=== PATIENT | female | born 1970 | race Caucasian/White ===

== ENCOUNTER 2018-03-18 08:00 | Outpatient (REF) | payer BC, SELFPAY ==
[2018-03-18 14:12] LABS: Creatinine,Urine 70.43 mg/dL
[2018-03-18 14:15] LABS: Creatinine,24hr Ur 1.48 g/24hr (0.60-1.80); Total Volume 2150 ml
[2018-03-21 22:18] LABS: Metanephrines, U 73 mcg/24 h; Normetanephrine, U 538 mcg/24 h; Total Metanephrines, U 611 mcg/24 h; Urine Volume 2600 mL
== END 2018-03-18 08:20 ==
LOC: LBN 08:00
PROVIDERS: PCP Family Medicine; Visit Provider Internal Medicine Endocrinology, Diabetes & Metabolism
DX: E05.90 Thyrotoxicosis, unspecified without thyrotoxic crisis or storm (principal)
CPT/HCPCS: 81050; 82570; 83835

== ENCOUNTER 2019-07-05 08:10 | Outpatient (CLI) | payer BC, SELFPAY ==
--- NOTE | 2019-07-05 15:35 | DI.RAD_ITS ---
EXAM: XR FOOT RT COMPLETE CLINICAL HISTORY: RT FOOT PAIN ,79.671 TECHNIQUE: Three views of the foot with 3 additional views of the great toe were obtained. COMPARISON: XR TOE RT GREAT from 07/05/2019 FINDINGS: No bony or soft tissue abnormality seen.
== END 2019-07-05 08:30 ==
PROVIDERS: PCP Family Medicine; Visit Provider Family Medicine
DX: M79.671 Pain in right foot (principal); M79.674 Pain in right toe(s)
CPT/HCPCS: 73630; 73660

== ENCOUNTER 2019-11-21 17:06 | Outpatient (REF) | payer BC, SELFPAY | END 2019-11-21 17:26 | LOC: NCHCN 17:06 | PROVIDERS: PCP Family Medicine; Visit Provider Nurse Practitioner Family | DX: R30.0 Dysuria (principal) | CPT/HCPCS: 87077; 87086; 87186 ==

== ENCOUNTER 2020-01-22 01:47 | Outpatient (CLI) | payer BC, SELFPAY ==
--- NOTE | 2020-01-22 | DI.US_ITS ---
EXAM: US PELVIS TRANSVAGINAL CLINICAL HISTORY: CHRONIC PELVIC PAIN,R10.2 TECHNIQUE: Transabdominal and transvaginal imaging was performed using standard protocol. COMPARISON: No exams were available for comparison FINDINGS: KIDNEYS: Kidneys are symmetric in size. No evidence of renal calculi. No evidence of hydronephrosis. No renal mass or cyst identified. In the right inguinal region, in the area of the patient's pain, there is a fatty containing hernia. The fascial defect measures 1.3 cm. UTERUS: Anteverted. 9.5 x 5.2 x 5.4 cm. Endometrium: 9 millimeters. Homogeneous. Myometrium: Heterogeneous. 2.3 centimeter fundal fibroid. 1.4 centimeter anterior myometrial fibroi d. Cervix: Small nabothian cysts. OVARIES: Right: Cyst or mass: 1.8 centimeter dominant follicle Left: Cyst or mass: None. DOPPLER: Color: Symmetric and uniform flow to both ovaries. No hyperemia. Duplex: Normal ovarian arterial waveforms visualized. CUL-DE-SAC: Free fluid: None. IMPRESSION: Fatty containing right inguinal hernia. Heterogeneous myometrium with small fibroids. DATA REPOSITORY:
== END 2020-01-22 02:07 ==
PROVIDERS: PCP Family Medicine; Visit Provider Obstetrics & Gynecology
DX: K40.90 Unilateral inguinal hernia, without obstruction or gangrene, not specified as recurrent (principal); D25.9 Leiomyoma of uterus, unspecified; N85.9 Noninflammatory disorder of uterus, unspecified
CPT/HCPCS: 76830; 76856

== ENCOUNTER 2021-04-07 10:05 | Outpatient (REF) | payer BC, SELFPAY ==
[2021-04-07 14:27] LABS: ALT 23 U/L (14-59); AST 11 U/L (15-37); Albumin 3.9 g/dL (3.4-5.0); Alkaline Phosphatase 38 U/L (46-116); Anion Gap 9.5 mmol/L (3-11); BUN 13 mg/dL (7-18); Bilirubin, Total 0.3 mg/dL (0.2-1.0); CO2 25.5 mmol/L (21.0-32.0); Calcium 8.7 mg/dL (8.5-10.1); Calculated LDL 113 mg/dL (<100); Chloride 104 mmol/L (98-107); Cholesterol 178 mg/dL (<200); Estimated GFR 58.69 (mL/min/1.73m2); Glucose 83 mg/dL (74-106); HDL Cholesterol 40 mg/dL (40-60); Potassium 4.4 mmol/L (3.5-5.1); Sodium 139 mmol/L (136-145); Total Protein 7.4 g/dL (6.4-8.2); Triglyceride 125 mg/dL (<150)
== END 2021-04-07 10:06 | disposition home or self-care (01) ==
LOC: NCHCN 10:05
PROVIDERS: PCP Family Medicine; Visit Provider Family Medicine
DX: Z00.00 Encounter for general adult medical examination without abnormal findings (principal)
CPT/HCPCS: 80053; 80061

== ENCOUNTER 2022-05-18 01:16 | Outpatient (CLI) | payer BC, SELFPAY ==
--- NOTE | 2022-05-18 15:00 | DI.RAD_ITS ---
Exam(s) XR SHOULDER LT COMPLETE 2+V EXAM: XR SHOULDER LT COMPLETE 2+V CLINICAL HISTORY: LT SHOULDER PAIN, M25.512. TECHNIQUE: 2D digital imaging was performed of the left shoulder. Five images were obtained. AP, G rashey, Y-view and axillary views were obtained. COMPARISON: No exams were available for comparison FINDINGS: BONES: No acute fracture is present. No bony destructive lesion is seen. JOINTS: No dislocation present. SOFT TISSUE: Normal. IMPRESSION: Unremarkable radiographs of the left shoulder. DATA REPOSITORY: RADIATION DOSE DELIVERED:
== END 2022-05-18 01:36 ==
LOC: DI 01:16
PROVIDERS: PCP Family Medicine; Visit Provider Internal Medicine
DX: M25.512 Pain in left shoulder (principal)
CPT/HCPCS: 73030

== ENCOUNTER 2022-07-01 16:53 | Outpatient (REF) | payer BC, SELFPAY ==
[2022-07-01 20:55] LABS: HCT 37.5 % (36.0-46.0); HGB 11.3 g/dL (11.2-15.7); MCH 24.9 pg (27.0-33.0); MCHC 30.1 % (32.0-36.0); MCV 83 fL (80-95); MPV 11.6 fL (8.0-11.0); Platelet Count 339 10^3/uL (130-400); RBC 4.53 10^6/uL (3.93-5.22); RDW 16.7 % (11.7-14.6); RDW-SD 50.2 fL; WBC 8.59 10^3/uL (4.4-10.8)
[2022-07-01 21:19] LABS: ALT 17 U/L (14-59); AST 16 U/L (15-37); Albumin 3.9 g/dL (3.4-5.0); Alkaline Phosphatase 41 U/L (46-116); BUN 16 mg/dL (7-18); Bilirubin, Total 0.2 mg/dL (0.2-1.0); Calcium 8.8 mg/dL (8.5-10.1); Chloride 105 mmol/L (98-107); Estimated GFR 68.21 (mL/min/1.73m2); Glucose 95 mg/dL (74-106); Potassium 5.1 mmol/L (3.5-5.1); Sodium 139 mmol/L (136-145); TSH 0.58 uIU/mL (0.36-3.74); Total Protein 7.3 g/dL (6.4-8.2)
[2022-07-01 21:32] LABS: T4 9.3 ug/dL (4.7-13.3)
[2022-07-03 17:50] LABS: T3, Total 155 ng/dL (97-169)
== END 2022-07-01 16:54 | disposition home or self-care (01) ==
LOC: NCHCN 16:53
PROVIDERS: PCP Family Medicine; Visit Provider Family Medicine
DX: E05.90 Thyrotoxicosis, unspecified without thyrotoxic crisis or storm (principal); F41.8 Other specified anxiety disorders; K90.0 Celiac disease
CPT/HCPCS: 80053; 85027; 84436; 84443; 84480

== ENCOUNTER 2022-07-11 01:35 | Outpatient (CLI) | payer BC, SELFPAY ==
--- NOTE | 2022-07-11 08:00 | DI.MRI_ITS ---
Exam(s) MR UPPER JOINT LT WO EXAM: MR UPPER JOINT LT WO CLINICAL HISTORY: L SHOULDER PAIN,BURSITIS, TENDINITIS,ROTATOR CUFF TEAR,M75.52,M75.22,. TECHNIQUE: Multiplanar multisequence MRI was performed. COMPARISON: CR XR SHOULDER LT COMPLETE 2+V from 05/18/2022 FINDINGS: BONES: There is no fracture or contusion pattern. JOINTS: The acromioclavicular joint is normal. The glenohumeral joint is normal. TENDONS: Supraspinatus: There is tendinosis of the supraspinatus tendon. Infraspinatus: There is infraspinatus tendinosis. Subscapularis: Unremarkable. Teres Minor: Unremarkable. Biceps and [place]: Unremarkable. MUSCLES: Unremarkable. GLENOID LABRUM: Unremarkable on this noncontrast examination. SOFT TISSUES: Unremarkable. LIGAMENTS: Unremarkable. OTHER: There is fluid seen in the subacromial subdeltoid bursitis. IMPRESSION: 1. Subacromial subdeltoid bursitis. 2. Tendinosis in the supraspinatus and infraspinatus tendons. No evidence of a rotator cuff tear. DATA REPOSITORY:
== END 2022-07-11 01:55 ==
LOC: DI 01:35
PROVIDERS: PCP Family Medicine; Visit Provider Student in an Organized Health Care Education/Training Program
DX: M75.52 Bursitis of left shoulder (principal); M75.22 Bicipital tendinitis, left shoulder; M75.102 Unspecified rotator cuff tear or rupture of left shoulder, not specified as traumatic
CPT/HCPCS: 73221

== ENCOUNTER 2022-09-21 13:19 | Outpatient (REF) | payer BC, SELFPAY ==
[2022-09-21 17:02] LABS: TSH 0.44 uIU/mL (0.36-3.74)
[2022-09-21 18:03] LABS: Vitamin D 25 Total 69.2 ng/mL (30-100)
== END 2022-09-21 13:20 | disposition home or self-care (01) ==
LOC: NCHCN 13:19
PROVIDERS: PCP Family Medicine; Visit Provider Family Medicine
DX: E05.90 Thyrotoxicosis, unspecified without thyrotoxic crisis or storm (principal); K90.0 Celiac disease
CPT/HCPCS: 82306; 84443

== ENCOUNTER 2023-01-17 03:30 | Outpatient (CLI) | payer BC, SELFPAY ==
[2023-01-17 08:23] LABS: Abs Immature Grans 0.01 10^3/uL (0.0-0.06); Absolute Eosinophil Count 0.28 10^3/uL (0.0-0.7); Absolute Lymphocyte Count 1.53 10^3/uL (1.2-3.4); Absolute Monocyte Count 0.46 10^3/uL (0.1-0.8); Absolute Neutrophil Count 2.69 10^3/uL (1.2-6.7); Eosinophils % 5.5; HCT 37.9 % (36.0-46.0); HGB 11.5 g/dL (11.2-15.7); Immature Grans % 0.2; Lymphocytes % 30.2; MCHC 30.3 % (32.0-36.0); MCV 82 fL (80-95); MPV 10.1 fL (8.0-11.0); Monocytes % 9.1; Platelet Count 374 10^3/uL (130-400); RDW 15.8 % (11.7-14.6); RDW-SD 47.7 fL; WBC 5.07 10^3/uL (4.4-10.8)
[2023-01-17 08:25] LABS: Bilirubin Negative (Negative); Blood Negative (Negative); Clarity Clear (Clear); Glucose Negative (Negative); Ketones Negative (Negative); Leukocyte Esterase Negative (Negative); Nitrite Negative (Negative); Specific Gravity 1.025 (1.005-1.025); Urobilinogen 0.2 mg/dL (Up to 0.2)
[2023-01-17 09:53] LABS: Hemoglobin A1C 5.7 % (<5.7)
[2023-01-17 10:00] LABS: Iron 26 ug/dL (50-170)
[2023-01-17 10:08] LABS: ALT 23 U/L (14-59); AST 14 U/L (15-37); Albumin 3.7 g/dL (3.4-5.0); Alkaline Phosphatase 49 U/L (46-116); Anion Gap 5.6 mmol/L (3-11); BUN 16 mg/dL (7-18); Bilirubin, Total 0.3 mg/dL (0.2-1.0); CO2 29.4 mmol/L (21.0-32.0); CREATININE 1.1 mg/dL (0.55-1.02); Calculated LDL 163 mg/dL (<100); Chloride 105 mmol/L (98-107); Cholesterol 232 mg/dL (<200); Estimated GFR 60.46 (mL/min/1.73m2); Ferritin 2 ng/mL (8-252); Glucose 87 mg/dL (74-106); HDL Cholesterol 53 mg/dL (40-60); Sodium 140 mmol/L (136-145); TSH 0.72 uIU/mL (0.36-3.74); Total Protein 7.3 g/dL (6.4-8.2); Triglyceride 84 mg/dL (<150)
[2023-01-17 10:41] LABS: FREE T4 0.87 ng/dL (0.76-1.46)
[2023-01-17 18:15] LABS: T3,Free 3.9 pg/mL (2.8-5.3)
[2023-01-17 20:19] LABS: Thyroglobulin Antibody <15 U/mL (<=60); Thyroperoxidase Antibody <28 U/mL (<=60)
[2023-01-19 12:04] LABS: Copper, Serum 115 mcg/dL (77-206)
== END 2023-01-17 03:31 | disposition home or self-care (01) ==
LOC: LBO 03:30
PROVIDERS: PCP Family Medicine; Visit Provider Naturopath
DX: F51.01 Primary insomnia (principal); N95.8 Other specified menopausal and perimenopausal disorders; F41.1 Generalized anxiety disorder; K59.01 Slow transit constipation; R35.0 Frequency of micturition; L65.9 Nonscarring hair loss, unspecified; R42 Dizziness and giddiness; D50.9 Iron deficiency anemia, unspecified; E06.3 Autoimmune thyroiditis; E61.0 Copper deficiency; Z13.220 Encounter for screening for lipoid disorders; Z13.1 Encounter for screening for diabetes mellitus
CPT/HCPCS: 36415; 80053; 80061; 82525; 86376; 81003; 82728; 83036; 83540; 84439; 84443; 84481; 85025

== ENCOUNTER 2023-04-12 16:21 | Outpatient (REF) | payer BC, SELFPAY ==
[2023-04-12 21:07] LABS: Abs Immature Grans 0.03 10^3/uL (0.0-0.06); Absolute Basophil Count 0.15 10^3/uL (0.0-0.2); Absolute Lymphocyte Count 2.01 10^3/uL (1.2-3.4); Absolute Monocyte Count 0.77 10^3/uL (0.1-0.8); Absolute Neutrophil Count 5.41 10^3/uL (1.2-6.7); Basophils % 1.7; Eosinophils % 4.6; HCT 38.4 % (36.0-46.0); HGB 11.9 g/dL (11.2-15.7); Immature Grans % 0.3; Lymphocytes % 22.9; MCH 25.7 pg (27.0-33.0); MCV 83 fL (80-95); MPV 11.3 fL (8.0-11.0); Monocytes % 8.8; Neutrophils % 61.7; Platelet Count 359 10^3/uL (130-400); RBC 4.63 10^6/uL (3.93-5.22); RDW 16.9 % (11.7-14.6); RDW-SD 50.8 fL; WBC 8.77 10^3/uL (4.4-10.8)
[2023-04-12 21:28] LABS: ALT 28 U/L (14-59); AST 16 U/L (15-37); Albumin 4.2 g/dL (3.4-5.0); Alkaline Phosphatase 62 U/L (46-116); Anion Gap 8.9 mmol/L (3-11); BUN 21 mg/dL (7-18); Bilirubin, Total 0.2 mg/dL (0.2-1.0); CO2 27.1 mmol/L (21.0-32.0); Calcium 9.8 mg/dL (8.5-10.1); Chloride 102 mmol/L (98-107); Estimated GFR 67.78 (mL/min/1.73m2); Ferritin 8 ng/mL (8-252); Glucose 110 mg/dL (74-106); Potassium 4.3 mmol/L (3.5-5.1); Sodium 138 mmol/L (136-145); Total Protein 7.7 g/dL (6.4-8.2)
[2023-04-12 21:43] LABS: C-Reactive Protein 0.17 mg/dL (0.0-0.3)
[2023-04-12 22:06] LABS: Iron 60 ug/dL (50-170)
[2023-04-14 17:58] LABS: Apolipoprotein A1 125 mg/dL (>=140)
[2023-04-15 09:18] LABS: Apolipoprotein B, S 110 mg/dL
== END 2023-04-12 16:22 | disposition home or self-care (01) ==
LOC: NCHCN 16:21
PROVIDERS: PCP Family Medicine; Visit Provider Family Medicine
DX: R55 Syncope and collapse (principal)
CPT/HCPCS: 80053; 82172; 82728; 83540; 85025; 86140

== ENCOUNTER → 2023-06-07 02:38 | Outpatient (CLI) | payer BC, SELFPAY ==
--- NOTE | 2023-06-07 | DI.RAD_ITS ---
Exam(s) XR KNEE RT 3V AP,LAT,LENARD EXAM: XR KNEE RT 3V AP,LAT,LENARD CLINICAL HISTORY: PAIN RT KNEE M25.561. TECHNIQUE: 2D digital imaging was performed. Three views. COMPARISON: No exams were available for comparison FINDINGS: BONES: No acute fracture is present. No bony destructive lesion is seen. Enthesophyte upper pole pa tella JOINTS: The knee is normally aligned. No joint effusion is seen. Joint spaces are maintained. SOFT TISSUE: Normal. IMPRESSION: Unremarkable radiographs of the right knee. DATA REPOSITORY: RADIATION DOSE DELIVERED:
--- OUTSIDE RECORDS SUMMARY | 2023-06-07 02:39 | XMS_ITS | Continuity of Care Document ---
Author Name Unknown Organization [facility] Address [address] [place] [address] Care Team Providers Care Surveillance Investigator Name Role Phone Damon Reyes Primary Care Physician Encounter [facility] Date(s): 04/24/23 - 04/24/[address] [address] Discharge Disposition: Home or Self Care Attending Physician: Damon Reyes MD Admitting Physician: Damon Reyes MD Referring Physician: Damon Reyes MD Allergies, Adverse Reactions, Alerts Substance Reaction Severity Status gabapentin Unknown Active Assessment and Plan Diagnostic Tests Pending * PAP Test [facility] 04/24/23 Medications hydroCHLOROthiazide 12.5 mg oral tablet 0 Refill(s) Start Date: 04/24/23 Status: Ordered HYDROcodone-acetaminophen 10 mg-325 mg oral tablet 1 tab, Oral, TID, PRN as needed for pain, 0 Refill(s) Start Date: 04/24/23 Status: Ordered QUEtiapine 25 mg oral tablet 0 Refill(s) Start Date: 04/24/23 Status: Ordered traZODone 100 mg oral tablet See Instructions, 0 Refill(s) Start Date: 04/24/23 Status: Ordered venlafaxine 37.5 mg oral capsule, extended release 0 Refill(s) Start Date: 04/24/23 Status: Ordered Problem List Condition Confirmation Course Effective Dates Status Health St [facility] Informant Menopause present Confirmed Active Night sweats Confirmed Active Procedures Procedure Date Related Diagnosis Body Site Status Due 02/2024 1 03/13/19 Completed TMJ - Temporomandibular join t operation 05/2004 Completed oral surgery procedure 06/25/03 Co mpleted Tubal ligation Completed 1Pap Due 02/2024 03/02/2016 ASCUS/Neg 03/14/2019 Neg/Neg Social History Social History Type Response Tobacco Never tobacco user T obacco Use:. Sex Female Patient Care team information Care Team Personnel Name: Damon Reyes MD Position: Physician - Women's Health Member Role: Primary Care Physician Address: Address: [address]
== END ==
PROVIDERS: PCP Family Medicine; Visit Provider Family Medicine
DX: M25.561 Pain in right knee (principal)
CPT/HCPCS: 73562

== ENCOUNTER → 2023-09-04 01:13 | Outpatient (CLI) | payer BC, SELFPAY ==
--- NOTE | 2023-09-04 07:45 | DI.MAMMO_ITS ---
Exam(s) MAMMO SCREENING EXAM: MAMMO SCREENING CLINICAL HISTORY: SCREENING MAMMO FOR BREAST CANCER Z12.31 TECHNIQUE: Bilateral full field digital CC and MLO mammographic images were obtained with 3D tomosyn thesis and utilizing computer aided detection (CAD). COMPARISON: Available for comparison. FINDINGS: Masses/Architectural Distortion: There is a biopsy clip again seen in the lower inner quadrant of the left breast. No suspicious nodules are seen. No areas of architectural distortion are present. Microcalcifications: No suspicious pleomorphic-type are seen. Skin Thickening/Nipple Retraction: None. IMPRESSION: 1. No significant interval change with no specific features of malignancy noted. 2. Unless there is more urgent need, screening mammography is recommended, as per [place] [employer] guidelines. BI-RADS Category 1 - Negative Breast Density - Category C - Heterogeneously dense Breast density category C or D implies that the patient has dense breast tissue. Dense breast tissue is very common and is not abnormal but dense breast tissue can make it harder to find cancer on a ma mmogram. Also, dense breast tissue may increase their breast cancer risk. This information about the result of the mammogram report was provided to the patient to raise their awareness. Use this report when you speak with the patient about their risks for breast cancer, which includes their family hist ory. At that time, you may recommend for more screening tests (Ultrasound or MRI) as they might be us eful based on their risk. A negative radiographic report should not delay biopsy if a dominant or clinically suspicious mass is present. Up to ten percent of cancers are not identified on mammography. A negative report may reinforce clinical impression. Adenosis and dense breasts may obscure an underlying neoplasm. False positive reports average 6 to 10%. Patient will receive a letter notifying them of these results.
== END ==
PROVIDERS: PCP Family Medicine; Visit Provider Obstetrics & Gynecology
DX: Z12.31 Encounter for screening mammogram for malignant neoplasm of breast (principal)
CPT/HCPCS: 77063; 77067

== ENCOUNTER 2023-10-19 06:04 | Outpatient (CLI) | payer BC, SELFPAY ==
[2023-10-19 07:56] LABS: Abs Immature Grans 0.02 10^3/uL (0.0-0.06); Absolute Basophil Count 0.11 10^3/uL (0.0-0.2); Absolute Eosinophil Count 0.23 10^3/uL (0.0-0.7); Absolute Lymphocyte Count 1.61 10^3/uL (1.2-3.4); Absolute Monocyte Count 0.62 10^3/uL (0.1-0.8); Absolute Neutrophil Count 5.02 10^3/uL (1.2-6.7); Basophils % 1.4; HCT 40.5 % (36.0-46.0); Immature Grans % 0.3; Lymphocytes % 21.2; MCH 28.9 pg (27.0-33.0); MCHC 32.1 % (32.0-36.0); MCV 90 fL (80-95); MPV 10.5 fL (8.0-11.0); Monocytes % 8.1; Platelet Count 298 10^3/uL (130-400); RDW 13.3 % (11.7-14.6); RDW-SD 43.5 fL; WBC 7.61 10^3/uL (4.4-10.8)
[2023-10-19 08:39] LABS: ALT 25 U/L (14-59); AST 15 U/L (15-37); Albumin 3.9 g/dL (3.4-5.0); Alkaline Phosphatase 60 U/L (46-116); Anion Gap 7.9 mmol/L (3-11); BUN 17 mg/dL (7-18); Bilirubin, Total 0.3 mg/dL (0.2-1.0); CO2 28.1 mmol/L (21.0-32.0); Calcium 8.8 mg/dL (8.5-10.1); Chloride 106 mmol/L (98-107); Estimated GFR 67.36 (mL/min/1.73m2); Ferritin 6 ng/mL (8-252); Glucose 99 mg/dL (74-106); Potassium 4.3 mmol/L (3.5-5.1); Sodium 142 mmol/L (136-145); Total Protein 7.3 g/dL (6.4-8.2)
[2023-10-19 19:58] LABS: Iron 57 ug/dL (50-170)
[2023-10-19 20:02] LABS: Calculated LDL 187 mg/dL (<100); Cholesterol 266 mg/dL (<200); HDL Cholesterol 60 mg/dL (40-60); Triglyceride 97 mg/dL (<150)
[2023-10-19 20:21] LABS: Vitamin D 25 Total 51.1 ng/mL (30-100)
== END 2023-10-19 06:05 | disposition home or self-care (01) ==
LOC: LBO 06:04
PROVIDERS: PCP Family Medicine; Visit Provider Naturopath
DX: N95.8 Other specified menopausal and perimenopausal disorders (principal); N92.4 Excessive bleeding in the premenopausal period; I10 Essential (primary) hypertension; D50.9 Iron deficiency anemia, unspecified; F51.01 Primary insomnia; K59.01 Slow transit constipation; F41.1 Generalized anxiety disorder; R35.0 Frequency of micturition; L65.9 Nonscarring hair loss, unspecified; R42 Dizziness and giddiness; R53.83 Other fatigue; E55.9 Vitamin D deficiency, unspecified; Z13.220 Encounter for screening for lipoid disorders
CPT/HCPCS: 36415; 80053; 80061; 82306; 82728; 83540; 85025

== ENCOUNTER 2023-12-11 05:56 | Outpatient (CLI) | payer BC, SELFPAY ==
[2023-12-11 08:44] LABS: Abs Immature Grans 0.01 10^3/uL (0.0-0.06); Absolute Eosinophil Count 0.29 10^3/uL (0.0-0.7); Absolute Lymphocyte Count 1.41 10^3/uL (1.2-3.4); Absolute Neutrophil Count 1.94 10^3/uL (1.2-6.7); Basophils % 2.4 %; Eosinophils % 6.8 %; HCT 40.9 % (36.0-46.0); HGB 12.7 g/dL (11.2-15.7); Immature Grans % 0.2 %; Lymphocytes % 33.2 %; MCH 27.8 pg (27.0-33.0); MCHC 31.1 % (32.0-36.0); MCV 90 fL (80-95); MPV 10.5 fL (8.0-11.0); Monocytes % 11.8 %; Neutrophils % 45.6 %; Platelet Count 278 10^3/uL (130-400); RBC 4.57 10^6/uL (3.93-5.22); RDW 14.6 % (11.7-14.6); RDW-SD 48.2 fL; WBC 4.25 10^3/uL (4.4-10.8)
[2023-12-11 09:08] LABS: Iron 53 ug/dL (50-170)
[2023-12-11 09:30] LABS: ALT 26 U/L (14-59); AST 15 U/L (15-37); Albumin 4.1 g/dL (3.4-5.0); Alkaline Phosphatase 57 U/L (46-116); Anion Gap 8.6 mmol/L (3-11); BUN 12 mg/dL (7-18); Bilirubin, Total 0.4 mg/dL (0.2-1.0); CO2 29.4 mmol/L (21.0-32.0); Calcium 9.1 mg/dL (8.5-10.1); Calculated LDL 162 mg/dL (<100); Chloride 104 mmol/L (98-107); Cholesterol 238 mg/dL (<200); Estimated GFR 67.36 (mL/min/1.73m2); FREE T4 0.83 ng/dL (0.76-1.46); Ferritin 5 ng/mL (8-252); Glucose 98 mg/dL (74-106); HDL Cholesterol 62 mg/dL (40-60); Potassium 3.9 mmol/L (3.5-5.1); Sodium 142 mmol/L (136-145); TSH 1.83 uIU/Ml (0.36-3.74); Total Protein 7.7 g/dL (6.4-8.2); Triglyceride 72 mg/dL (<150); Vitamin D 25 Total 55.3 ng/mL (30-100)
[2023-12-11 22:43] LABS: T3,Free 3.8 pg/mL (2.8-5.3)
[2023-12-12 08:45] LABS: Thyroglobulin Antibody <15 U/mL (<=60); Thyroperoxidase Antibody 29 U/mL (<=60)
== END 2023-12-11 05:57 | disposition home or self-care (01) ==
LOC: LBO 05:56
PROVIDERS: PCP Family Medicine; Visit Provider Naturopath
DX: N95.8 Other specified menopausal and perimenopausal disorders (principal); N92.4 Excessive bleeding in the premenopausal period; I10 Essential (primary) hypertension; D50.9 Iron deficiency anemia, unspecified; F51.01 Primary insomnia; R35.0 Frequency of micturition; Z13.220 Encounter for screening for lipoid disorders; E55.9 Vitamin D deficiency, unspecified
CPT/HCPCS: 36415; 80053; 80061; 82306; 86376; 82728; 83540; 84439; 84443; 84481; 85025

== ENCOUNTER 2024-04-29 11:54 | Outpatient (REF) | payer BC, SELFPAY ==
--- OUTSIDE RECORDS SUMMARY | 2024-04-29 11:56 | XMS_ITS | Encounter Summary ---
Author Organization [facility] [address] Care Team Providers Care Gang Worker Name Role Phone Aisha Kessler MD Primary Care Provider Reason for Visit * - Closed Specialty Diagnoses / Procedures Referred By Lizbeth t Referred To Contact Procedures Film Library- Storage Only MR Spine Aisha Kessler MD [address] [place] [address] Referral ID Status Reason Start Date Expiration Date Visits Re quested Visits Authorized [id number] Closed 09/18/2020 09/18/2021 1 1 Encounter Details Date Type Department Care Team (Late st Contact Info) Description 09/11/2020 Ancillary Procedure Radiology Library at [facility] [place] [address] Aisha Kessler MD [address] [place], [place] [address] Social History Tobacco Use Types Packs/Day Years Used Date Smoking Tobacco: Never Smokeless Tobacco: Never Alcohol Use Standard Drinks/Week Comments No 0 (1 standard drink = 0.6 oz pur e alcohol) Sex and Gender Information Value Date Recorded Sex Assigned at Not on file Gender Identity Not on file Sexual Orientation Not on file documented as of this encounter Plan of Treatment Not on file documented as of this encounter Procedures Procedure Name Priority Date/Time Associated Diagnosis Comments FILM LIBRARY STORAGE ONLY MR SPINE Routine 09/11/2020 12:00 AM EDT documented in this encounter Results * Film Library- Storage Only MR Spine (09/11/2020 12:00 AM EDT) Narrative JES - 09/18/2020 2:14 PM EDT This exam is auto-finalizing. It's purpose is for storage only. Aisha Kessler MD IM FILM LIBRARY ORD ERABLES Performing Organization Address City/State/[facility] Co de Phone Number [place], [place] documented in this encounter Visit Diagnoses Not on filedocumented in this encounter Care Teams Gang Worker Relationship Specialty Start Date End Date Aisha Kessler MD [address] [place] [address] PCP - General Family Medicine 10/20/17 documented as of this encounter
--- OUTSIDE RECORDS SUMMARY | 2024-04-29 11:56 | XMS_ITS | Encounter Summary ---
Author Organization [facility] Address [address] [place] [address] Care Team Providers Care Sprue Knocker Name Role Phone Deep Zuleta MD Primary Care Provider [phone] Encounter Details Date Type Department Care Team (Latest Contact Info) Description 03/02/2016 14:29 EDT - 03/02/2016 23:59 EDT Hospital Encounter [address] [address] Unknown, Provider, Discharge Disposition: Home or Self Care Social History Tobacco Use Types Packs/Day Years Used Date Smoking Tobacco: Never Assessed Sex and Gender Information Value Date Recorded Sex Assigned at Not on file Gender Identity Not on file Sexual Orientation Not on file documented as of this encounter Discharge Diagnoses Diagnosis Z12.4 Encounter for screening for malignant neoplasm of cervix-Z12.4[ICD-10-CM] Z87.410 Personal history of cervical dysplasia-Z87.410[ICD-10-CM] Z11.51 Encounter for screening for human papillomavirus (HPV)-Z11.51[ICD-10-CM] documented in this encounter Discharge Disposition Disposition Code Departure Means Destination Home or Self Long Term documented in this encounter Plan of Treatment Not on file documented as of this encounter Visit Diagnoses Not on filedocumented in this encounter Care Teams Sprue Knocker Relationship Specialty Start Date End Date Deep Zuleta MD [address] [place] [address] PCP - General 10/11/10 documented as of this encounter
--- OUTSIDE RECORDS SUMMARY | 2024-04-29 11:56 | XMS_ITS | Encounter Summary ---
[place] [address] Care Team Providers Care Batch Roller Operator Name Role Phone Aisha Kessler MD Primary Care Provider [phone] Reason for Referral * Diagnostic Test (Routine) - Closed Specialty Diagnoses / Procedures Referred By Contac t Referred To Contact Radiology Diagnoses Chronic bilateral thoracic back pain Procedures MRI Thoracic Spine wo Contrast (Generic) Juwan Earl APRN [facility] [place] [address] [place] [address] Referral ID Status Reason Start Date Expiration Date V isits Requested Visits Authorized [id number] Closed Specialty Service Requested 11/13/2019 05/10/2020 1 1 Reason for Visit * Diagnostic Test (Routine) - Closed Specialty Diagnoses / Procedures Referred By Contac t Referred To Contact Radiology Diagnoses Chronic bilateral thoracic back pain Procedures MRI Thoracic Spine wo Contrast (Generic) Juwan Earl MILLWORK ESTIMATOR [facility] [place] [address] [place] [address] Referral ID Status Reason Start Date Expiration Date V isits Requested Visits Authorized [id number] Closed Specialty Service Requested 11/13/2019 05/10/2020 1 1 Encounter Details Date Type Department Care Team (Latest Contact Info) Description 12/30/2019 8:56 AM EDT - 12/30/2019 11:59 PM EDT Hospital Encounter MRI at [facility] [place] [address] Juwan Earl APRN [facility] [place] [id number] Chronic bilateral thoracic back pain Discharge Disposition: Home Social History Tobacco Use Types Packs/Day Years Used Date Smoking Tobacco: Never Smokeless Tobacco: Never Alcohol Use Standard Drinks/Week Comments No 0 (1 standard drink = 0.6 oz pur e alcohol) Sex and Gender Information Value Date Recorded Sex Assigned at Not on file Gender Identity Not on file Sexual Orientation Not on file documented as of this encounter Medications at Time of Discharge Medication Sig Dispensed Refills Start Date End Date ibuprofen (Advil;Motrin) 200 mg Tablet Take 600 mg by mouth as needed for Pain. diclofenac (CATAFLAM) 50 mg Tablet as needed. 07/08/2019 methIMAzole (TAPAZOLE) 10 mg TabletIndications:Grave s disease Take 1.5 tablets by mouth daily. Or alternate 10 mg a day with 20 mg a day 135 tablet 3 05/22/2018 HYDROCODONE/ACETAMINOPH EN (VICODIN ORAL) Take by mouth as needed. Patient takes 5-325 mg as needed ferrous sulfate 324 mg (65 mg iron) Tablet, Delayed Release (E.C.) Take 324 mg by mouth daily. zolpidem (AMBIEN) 5 mg Tablet Take 5 mg by mouth nightly as needed for Sleep. documented as of this encounter Plan of Treatment Not on file documented as of this encounter Procedures Procedure Name Priority Date/Time Associated Diagnosis Comments MRI THORACIC SPINE WITHOUT CONTRAST Routine 12/30/2019 10:05 AM EDT Chronic bilateral thoracic back pain documented in this encounter Results * MRI Thoracic Spine wo Contrast (Generic) (12/30/2019 10:05 AM EDT) Anatomical Region Laterality Modality T-spine Magnetic Resonan ce Impressions 12/30/2019 10:46 AM EDT No nerve root impingement. No thoracic spine compression deformity. No evidence of cord injury or other finding to explain the patient's mid back pain. Thank you for letting us participate in the care of this patient. For questions regarding this report, please contact the number below. ? Narrative 12/30/2019 10:46 AM EDT EXAMINATION: MRI THORACIC SPINE WO CONTRAST (GENERIC) CLINICAL HISTORY: Mid-back pain TECHNIQUE: MRI of the thoracic spine performed without intravenous contrast administration. COMPARISON: No direct comparison. Thoracic spine plain radiographs 11/02/2019 reviewed. FINDINGS: Vertebral body height and regional marrow signal intensity are maintained. No spondylolisthesis. Regional bone marrow signal intensity is within normal limits. Note made of hemangiomas in the T2 and T5 vertebral bodies. No abnormal mass. No wedge compression deformity. No bone marrow edema. The thoracic cord is normal in morphology and signal intensity. The spinal canal and neural foramen are widely patent mild narrowing of the right-sided neural foramen at T8-T9. Procedure Note José Miguel Last MD - 12/30/2019 EXAMINATION: MRI THORACIC SPINE WO CONTRAST (GENERIC) CLINICAL HISTORY: Mid-back pain TECHNIQUE: MRI of the thoracic spine performed without intravenous contrastadministration. COMPARISON: No direct comparison. Thoracic spine plain radiographs 11/02/2019reviewed. FINDINGS: Vertebral body height and regional marrow signal intensity are maintained.No spondylolisthesis. Regional bone marrow signal intensity is withinnormal limits. Note made of hemangiomas in the T2 and T5 vertebral bodies. Noabnormal mass. No wedge compression deformity. No bone marrow edema. The thoracic cord is normal in morphology and signal intensity. The spinal canal and neural foramen are widely patent mild narrowing ofthe right-sided neural foramen at T8-T9. IMPRESSION No nerve root impingement. No thoracic spine compression deformity. Noevidence of cord injury or other finding to explain the patient's mid back pain. Thank you for letting us participate in the care of this patient. Forquestions regarding this report, please contact the number below. Juwan Earl MILLWORK ESTIMATOR IMG MRI ORDERABLE S documented in this encounter Visit Diagnoses Diagnosis Chronic bilateral thoracic back pain documented in this encounter Care Teams Batch Roller Operator Relationship Specialty Start Date End Date Aisha Kessler MD [address] [place] [address] PCP - General Family Medicine 10/20/17 documented as of this encounter
--- OUTSIDE RECORDS SUMMARY | 2024-04-29 11:56 | XMS_ITS | Encounter Summary ---
Author Organization [facility] Address [address] [place] [address] Care Team Providers Care Machine Trimmer Name Role Phone Deep Zuleta MD Primary Care Provider [phone] Encounter Details Date Type Department Care Team (Late st Contact Info) Description 07/03/2022 Lab Requisition [facility] - [address] [address] Outr Resulting Lab, Provider Social History Tobacco Use Types Packs/Day Years Used Date Smoking Tobacco: Never Assessed Sex and Gender Information Value Date Recorded Sex Assigned at Not on file Gender Identity Not on file Sexual Orientation Not on file documented as of this encounter Plan of Treatment Not on file documented as of this encounter Procedures Procedure Name Priority Date/Time Associated Diagnosis Comments T3, TOTAL Routine 07/01/2022 16:25 EST documented in this encounter Results * T3, TOTAL (07/01/2022 16:25 EST) T3, Total 155 97 - 169 ng/dL 07/03/2022 17:45 EST [facility] Blood VENOUS BLOOD / Unknown 07/01/2022 16:25 EST 07/03/2022 17:02 EST Provider Outr Resulting Lab CHEMISTRY & BLOOD GAS ORDERABLES [facility] [address] [place] [address] documented in this encounter Visit Diagnoses Not on filedocumented in this encounter Care Teams Machine Trimmer Relationship Specialty Start Date End Date Deep Zuleta MD [address] [place] [id number] PCP - General 10/11/10 documented as of this encounter
--- OUTSIDE RECORDS SUMMARY | 2024-04-29 11:56 | XMS_ITS | Encounter Summary ---
Author Organization [facility] Address [address] [place] [address] Care Team Providers Care Drum Tender Name Role Phone Deep Zuleta MD Primary Care Provider [phone] Encounter Details Date Type Department Care Team (Late st Contact Info) Description 03/02/2016 Results Only [facility] [phone] Jasmin Reyes MD [address] [place] [address] [address] [place], [place] [id number] Social History Tobacco Use Types Packs/Day Years Used Date Smoking Tobacco: Never Assessed Sex and Gender Information Value Date Recorded Sex Assigned at Not on file Gender Identity Not on file Sexual Orientation Not on file documented as of this encounter Plan of Treatment Not on file documented as of this encounter Procedures Procedure Name Priority Date/Time Associated Diagnosis Comments PAP TEST- RESULT ONLY Routine 03/02/2016 0:00 EDT documented in this encounter Results * PAP TEST- RESULT ONLY (03/02/2016 0:00 EDT) Pathology Report: CYTOPATHOLOGY REPORT Reports generated via electronic interface contain original data; however they are lacking the format of the original report. Caution should be taken when reading/interpret ing unformatted reports. Name: ? ТАТЬЯНА ZEPEDA ? Accession #: ? [id number] ? : ? 1970 (Age: 45) ??F ?Collect Date: ? 03/02/2016 ? Location: ? [facility] ? Receive Date: ? 03/04/2016 ? Provider: JASMIN REYES MD Copy to: ? Final Report SPECIMEN ADEQUACY ? Satisfactory for Evaluation - transformation zone component present GENERAL CATEGORIZATION ? Epithelial Cell Abnormality INTERPRETATION ? Squamous Cell Abnormality - Atypical squamous cells, undetermined significance (ASC-US). EDUCATIONAL NOTES/RECOMMENDAT IONS ? [facility] recommends following ASCCP's 2012 Updated Consensus Guidelines for the Management of Abnormal Cervical Cancer Screening Tests and Cancer Precursors (JLGTD, 2013; 17(5):S1-S27). ??Consensus guidelines are available online at www.asccp.org. Last Menstrual Period: 02/21/2016 Hormonal/Contrace ptive status: Oral contraceptives Previous Gynecologic Pathology: LSIL: 10/30, 01/30 HPV: + HR ??08/01, 01/30, 01/31 ASC-US: 08/01, 01/31 Treatment History: Colposcopy: 10/30 Other: Previous NIL Pap(s): 08/30, 10/03 10/04 Specimen/Source: ??Pap Test, Cervix/Endocervix , ThinPrep Imaging System with manual evaluation Document reviewed and electronically signed by: ? RIVERA RUBIO MD ? Report ??Date: 03/08/2016 10:46 HPV with Pap Test ? Date Ordered: ? 03/08/2016 ? Status: ?? Signed Out ?Date Complete: ? 03/09/2016 ? By: ??System Interface ? Date Reported: ? 03/09/2016 ? Interpretation RESULT: Negative for HPV. No E6 or E7 mRNA is detected from HPV types 16,18,31,33,35, 39,45,51,52,56,58 ,59,66, and 68 by revising clerk mediated amplification. Comments Document reviewed and electronically signed by: ? System Interface ? Report date: 03/09/2016 By the signature above, the attending physician certifies that he/she has personally conducted a gross and/or microscopic examination of the described specimens and rendered or confirmed the above diagnosis. End of Report [facility] 03/02/2016 03/04/2016 Jasmin Reyes MD PATHOLOGY ORDERABLES [facility] [address] [place] [address] documented in this encounter Visit Diagnoses Not on filedocumented in this encounter Care Teams Drum Tender Relationship Specialty Start Date End Date Deep Zuleta MD [address] [place] [id number] PCP - General 10/11/10 documented as of this encounter
--- OUTSIDE RECORDS SUMMARY | 2024-04-29 11:56 | XMS_ITS | Encounter Summary ---
Author Organization [facility] Address [address] [place] [address] Care Team Providers Care Manager Pediatric Name Role Phone Deep Zuleta MD Primary Care Provider +1 [phone] Encounter Details Date Type Department Care Team (Late st Contact Info) Description 12/11/2017 Historical Results Only [facility] - Main [place] [address] [place] [address] Angeles Mejias MD [address] [place] [address] [place] [phone] Social History Tobacco Use Types Packs/Day Years Used Date Smoking Tobacco: Never Assessed Sex and Gender Information Value Date Recorded Sex Assigned at Not on file Gender Identity Not on file Sexual Orientation Not on file documented as of this encounter Plan of Treatment Not on file documented as of this encounter Procedures Procedure Name Priority Date/Time Associated Diagnosis Comments THYROID-STIMULATING IMMUNOGLOBULIN (TSI), SERUM Routine 12/11/2017 12:04 EDT T3, TOTAL Routine 12/11/2017 12:04 EDT TSH Routine 12/11/2017 12:04 EDT T4 FREE Routine 12/11/2017 12:04 EDT documented in this encounter Results * (ABNORMAL) T3, TOTAL (12/11/2017 12:04 EDT) TOTAL T3, External 3.17(H) 0.97 - 1.69 ng/mL 12/11/2017 17:58 EDT [facility] 12/11/2017 12:0 4 EDT 12/11/2017 17:00 EDT Angeles Mejias MD CHEMISTRY & BLOOD GA S ORDERABLES Performing Organization Address City/[facility]/ZIP Co de Phone Number [facility] * (ABNORMAL) TSH (12/11/2017 12:04 EDT) Pathologist [facility] THYROID [facility] - [facility] <0.02(L) 0.46 - 4.68 uIU/ml 12/11/2017 17:58 EDT [facility] 12/11/2017 12:0 4 EDT 12/11/2017 17:00 EDT Angeles Mejias MD CHEMISTRY & BLOOD GA S ORDERABLES Performing Organization Address City/[facility]/ZIP Co de Phone Number [facility] * (ABNORMAL) T4 FREE (12/11/2017 12:04 EDT) FREE T4 [facility] 3.44(H) 0.78 - 2.19 ng/dl 12/11/2017 17:58 EDT [facility] 12/11/2017 12:0 4 EDT 12/11/2017 17:00 EDT Angeles Mejias MD CHEMISTRY & BLOOD GA S ORDERABLES [facility] * (ABNORMAL) THYROID-STIMULATING IMMUNOGLOBULIN (TSI), SERUM (12/11/2017 12:04 EDT) Pathologist [facility] Thyroid-Stimulati ng Immunoglobin, S 4.5(A) <=1.3 12/14/2017 18:47 EDT [facility] Comment: INFCE Result Units: TSI index Test Performed by: [address] [id number] 12/11/2017 12:0 4 EDT 12/11/2017 17:00 EDT Angeles Mejias MD CHEMISTRY & BLOOD GA S ORDERABLES [facility] documented in this encounter Visit Diagnoses Not on filedocumented in this encounter Care Teams Manager Pediatric Relationship Specialty Start Date End Date Deep Zuleta MD [address] [place] [address] PCP - General 10/11/10 documented as of this encounter
--- OUTSIDE RECORDS SUMMARY | 2024-04-29 11:56 | XMS_ITS | Encounter Summary ---
Author Organization [facility] Address [address] [place] [address] Care Team Providers Care Mental Measurements Teacher Name Role Phone Unavailable Primary Care Provider Unavailabl e Encounter Details Date Type Department Care Team (Late st Contact Info) Description 07/17/2001 Results Only [facility] - [place] [address] [place] [address] Rudi Milton MD Social History Tobacco Use Types Packs/Day Years Used Date Smoking Tobacco: Never Assessed Sex and Gender Information Value Date Recorded Sex Assigned at Not on file Gender Identity Not on file Sexual Orientation Not on file documented as of this encounter Plan of Treatment Not on file documented as of this encounter Procedures Procedure Name Priority Date/Time Associated Diagnosis Comments CYTOPATHOLOGY Routine 07/17/2001 0:00 EST documented in this encounter Results * CYTOPATHOLOGY (07/17/2001 0:00 EST) Pathology Report: CYTOPATHOLOGY REPORT Reports generated via electronic interface contain original data; however they are lacking the format of the original report. Caution should be taken when reading/interpreti ng unformatted reports. Name: ? KWASI, ТАТЬЯНА R ? Accession #: ? [id number] : ? 1970 (Age: 30) ??F ?Collect Date: ? 07/17/2001 Location: ? [facility] ? Receive Date: ? 07/19/2001 Provider: ?RUDI MILTON MD Copy to: ? Specimen/Source: ?ThinPrep Pap Test, Cervix/Endocervix Last Menstrual Period: ? 07/08/01 Other: ? Client ID#: [id number] ? SPECIMEN ADEQUACY ? Satisfactory for Evaluation - transformation zone component present GENERAL CATEGORIZATION ? Negative for Intraepithelial Lesion or Malignancy ? Document reviewed and electronically signed by: ? FREDDY Mahajan(ASCP) ? Report Date: ??07/20/2001 12:48 End of Report [facility] 07/17/2001 07/19/2001 Rudi Milton MD PATHOLOGY ORDERABLES [facility] [address] [place] [address] documented in this encounter Visit Diagnoses Not on filedocumented in this encounter
--- OUTSIDE RECORDS SUMMARY | 2024-04-29 11:56 | XMS_ITS | Encounter Summary ---
Author Organization [facility] Address [address] [place] [address] Care Team Providers Care Cranberry Sorter Name Role Phone Unavailable Primary Care Provider Unavailabl e Encounter Details Date Type Department Care Team (Late st Contact Info) Description 07/08/1999 Results Only [facility] - [place] conversion [address] [place] [address] Rudi Milton MD Social History Tobacco Use [...] Priority Date/Time Associated Diagnosis Comments CYTOPATHOLOGY Routine 07/08/1999 10:19 EST documented in this encounter Results * CYTOPATHOLOGY (07/08/1999 10:19 EST) Pathology Report: CYTOPATHOLOGY REPORT Reports generated via electronic interface contain original data; however they are lacking the format of the original report. Caution should be taken when reading/interpreti ng unformatted reports. Name: ? KWAIS, ТАТЬЯНА R ? Accession #: ? [id number] : ? 1970 (Age: 28) ??F ?Collect Date: ? 07/08/1999 Location: ?Receive Date: ? 07/08/1999 Provider: ?RUDI MILTON MD Copy to: ?RUDI MILTON MD ? Specimen/Source: ?Pap Smear (One Slide) Last Menstrual Period: ? GYNECOLOGIC ??CYTOPATHOLOGY ??REPORT Name: MICHAEL KATN ?[facility] : 1970 ?? 28Y F ?Client ID: ?? SS#: ? Clinician: Sharonda MILTON MD Location: [facility] ??Copy to: ?? Specimen: ?Pap Smear (One Slide) ? Source: Cervix/Endocervix ?Collected: 07/06/99 ? Received: 07/08/1999 ?LMP: 06/25/99 ? Hormone Therapy: No ? : No ? Radiation Therapy: No ?? Post : No ?Chemotherapy: No ?IUD: No ? Prev Abnormal Pap: No ?? Clinical Hx: ?(Blank ku indicate information not provided on requisition) SPECIMEN ADEQUACY: ? Satisfactory For Evaluation ?? GENERAL CATEGORIZATION: ? WITHIN NORMAL LIMITS ? Reviewed And Electronically Signed By: ? Dedra Epstein, CT(ASCP) ? Report Date: ?? 07/08/1999 [facility] Archived Tests - Final Diagnosis Text Field: Clinical History : ? Document reviewed and electronically signed by: ? Conversion ? Report Date: ??07/08/1999 00:00 End of Report [facility] 07/08/1999 10:1 9 EST 07/08/1999 10:20 EST Rudi Milton MD PATHOLOGY ORDERABLES [facility] [address] [place] [address] documented in this encounter Visit Diagnoses Not on filedocumented in this encounter
--- OUTSIDE RECORDS SUMMARY | 2024-04-29 11:56 | XMS_ITS | Encounter Summary ---
Author Organization [facility] Address [address] [place] [address] Care Team Providers Care Program Support Assistant Name Role Phone Unavailable Primary Care Provider Unavailabl e Encounter Details Date Type Department Care Team (Late st Contact Info) Description 08/20/2007 Results Only [facility] - [place] conversion [address] [place] [address] Rudi Milton MD Social History Tobacco Use Types Packs/Day Years Used Date Smoking Tobacco: Never Assessed Sex and Gender Information Value Date Recorded Sex Assigned at Not on file Gender Identity Not on file Sexual Orientation Not on file documented as of this encounter Plan of Treatment Not on file documented as of this encounter Procedures Procedure Name Priority Date/Time Associated Diagnosis Comments HPV DETECTION, HIGH RISK TYPES Routine 08/20/2007 14:28 EST CYTOPATHOLOGY Routine 08/20/2007 0:00 EST documented in this encounter Results * HUMAN PAPILLOMA VIRUS DNA TEST (08/20/2007 14:28 EST) Specimen Description Cervix, ThinPrep vial [facility] Result Positive for one or more of HPV types 16,18,31,33,35 ,39,45,51,52,5 6,58,59, or 68. These high/intermedi ate risk HPV types are associated with dysplasia and some cervical cancers. [facility] Report Status Final [id number] [facility] 08/20/2007 14:2 8 EST 08/27/2007 14:28 EST Rudi Milton MD MICROBIOLOGY - GENER AL ORDERABLES [facility] [address] [place] [address] * CYTOPATHOLOGY (08/20/2007 0:00 EST) Pathology Report: CYTOPATHOLOGY REPORT Reports generated via electronic interface contain original data; however they are lacking the format of the original report. Caution should be taken when reading/interpreti ng unformatted reports. Name: ? ТАТЬЯНА VILLALPANDO ? Accession #: ? [id number] : ? 1970 (Age: 36) ??F ?Collect Date: ? 08/20/2007 Location: ? [facility] ? Receive Date: ? 08/22/2007 Provider: ?RUDI MILTON MD Copy to: ? Specimen/Source: ?ThinPrep Pap Test, Cervix/Endocervix, processed on [employer] ThinPrep Imaging System, with manual evaluation Last Menstrual Period: ? Previous Gynecologic Pathology: ? ASC-US: 08/30 LSIL: 10/30 & 01/30 HPV: + HR 08/30, 10/30 & 01/30 Treatment History: ? Colposcopy: 10/30 LSIL Other: ? HPVDX - HPV testing requested regardless of diagnosis on current ThinPrep Pap test. ? SPECIMEN ADEQUACY ? Satisfactory for Evaluation - transformation zone component present GENERAL CATEGORIZATION ? Epithelial Cell Abnormality INTERPRETATION ? Squamous Cell Abnormality - Atypical squamous cells, undetermined significance (ASC-US). EDUCATIONAL NOTES/RECOMMENDATI ONS ? [facility] recommends following the 2006 Consensus Guidelines for the Management of Women with Abnormal Cervical Cancer Screening Tests (JLGTD, 2007;11(4):201-222 ). ??Consensus guidelines are available online at www.ASCCP.org. ? Document reviewed and electronically signed by: ? DWIGHT COOPER MD ? Report Date: ??08/27/2007 10:01 End of Report [facility] 08/20/2007 08/22/2007 Rudi Milton MD PATHOLOGY ORDERABLES [facility] [address] [place] [address] documented in this encounter Visit Diagnoses Not on filedocumented in this encounter
--- OUTSIDE RECORDS SUMMARY | 2024-04-29 11:56 | XMS_ITS | Encounter Summary ---
Author Organization [facility] Address [address] [place] [address] Care Team Providers Care Preparator Name Role Phone Deep Zuleta MD Primary Care Provider +1 [phone] Encounter Details Date Type Department Care Team (Latest Contact Info) Description 04/24/2023 Lab Requisition [facility] Pathology & Laboratory Medicine - [address] [address] Damon Reyes MD [address] [place] [address] [address] [place], [place] [id number] Encounter for gynecological examination (general) (routine) without abnormal findings Social History Tobacco Use Types Packs/Day Years Used Date Smoking Tobacco: Never Assessed Sex and Gender Information Value Date Recorded Sex Assigned at Not on file Gender Identity Not on file Sexual Orientation Not on file documented as of this encounter Plan of Treatment Not on file documented as of this encounter Procedures Procedure Name Priority Date/Time Associated Diagnosis Comments PAP TEST Today 04/24/2023 18:07 EDT HPV DNA DETECTION WITH GENOTYPING, PCR Today 04/24/2023 18:07 EDT documented in this encounter Results * HUMAN PAPILLOMAVIRUS (HPV) DETECTION-HIGH RISK TYPES (04/24/2023 18:07 EDT) HPV other High Risk types, PCR Negative Negative 05/07/2023 14:23 EST [facility] Comment:No E6 or E7 mRNA is detected from HPV types 16,18,31,33,35,39,45,51,52,56,58,59,66, and 68 by proofreader mediated amplification. Pap Test CERVIX UTERI STRUCTURE / Unknown 04/24/2023 18:07 EDT 05/04/2023 15:00 EST Damon Reyes MD MICROBIOLOGY - [facility] AL ORDERABLES [facility] [address] [place] [address] * PAP TEST (04/24/2023 18:07 EDT) Specimens A. Cervix and/or Endocervix , ThinPrep Imaging System with Manual Evaluation 05/07/2023 14:23 [facility] Specimen Adequacy Satisfactory for Evaluation - transformation zone component present 05/07/2023 14:23 [facility] General Categorization Negative for intraepithelial lesion or malignancy 05/07/2023 14:23 [facility] Descriptive Diagnosis Reactive cellular changes associated with inflammation present (includes repair). 05/07/2023 14:23 [facility] Attestation By the signature below, the attending physician certifies that they have personally conducted a gross and/or microscopic examination of the described specimens and rendered or confirmed the above diagnosis. 05/07/2023 14:23 [facility] at 1423 Clinical History SEE BELOW 05/07/20 14:23 [facility] HPV The result for the Human Papillomavirus (HPV) Detection-High Risk Types is Negative. No E6 or E7 mRNA is detected from HPV types 16,18,31,33,35,39 ,45,51,52,56,58,5 9,66, and 68 by proofreader mediated amplification.Maya ting was performed on specimen [id number] and was resulted on 05/05/2023 1750 EST by RAJESH, LAB INSTRUMENT RESULTS IN 05/07/2023 14:23 [facility] Performing Lab [facility] 05/07/2023 14:23 [facility] Scanned Images 05/07/2023 14:23 EST [facility] Pap Test CERVIX UTERI STRUCTURE / Unknown 04/24/2023 18:07 EDT 04/28/2023 12:57 EDT Damon Reyes MD PATHOLOGY ORDERABLES [facility] [address] [place] [address] documented in this encounter Visit Diagnoses Diagnosis Encounter for gynecological examination (general) (routine) without abnormal findings documented in this encounter Care Teams Preparator Relationship Specialty Start Date End Date Deep Zuleta MD [address] [place] [address] PCP - General 10/11/10 documented as of this encounter
--- OUTSIDE RECORDS SUMMARY | 2024-04-29 11:56 | XMS_ITS | Encounter Summary ---
Author Organization [facility] Address [address] [place] [address] Care Team Providers Care Organizational Development Manager Name Role Phone Unavailable Primary Care Provider Unavailabl e Encounter Details Date Type Department Care Team (Late st Contact Info) Description 02/12/2007 Results Only [facility] - Maple conversion [address] [place] [address] Rudi Milton MD Social History Tobacco Use [...] Comments HPV DETECTION, HIGH RISK TYPES Routine 02/12/2007 15:09 EDT CYTOPATHOLOGY Routine 02/12/2007 0:00 EDT documented in this encounter Results * HUMAN PAPILLOMA VIRUS DNA TEST (02/12/2007 15:09 EDT) Specimen Description Cervix, ThinPrep vial [facility] Result Positive for one or more of HPV types 16,18,31,33,35 ,39,45,51,52,5 6,58,59, or 68. These high/intermedi ate risk HPV types are associated with dysplasia and some cervical cancers. [facility] Report Status Final [id number] [facility] 02/12/2007 15:0 9 EDT 02/21/2007 15:09 EDT Rudi Milton MD MICROBIOLOGY - GENER AL ORDERABLES [facility] [address] [place] [address] * CYTOPATHOLOGY (02/12/2007 0:00 EDT) Pathology Report: CYTOPATHOLOGY REPORT Reports generated via electronic interface contain original data; however they are lacking the format of the original report. Caution should be taken when reading/interpreti ng unformatted reports. Name: ? ТАТЬЯНА VILLALPANDO ? Accession #: ? [id number] : ? 1970 (Age: 36) ??F ?Collect Date: ? 02/12/2007 Location: ? [facility] ? Receive Date: ? 02/14/2007 Provider: ?RUDI MILTON MD Copy to: ? Specimen/Source: ?ThinPrep Pap Test, Cervix/Endocervix, processed on [employer] ThinPrep Imaging System, with manual evaluation Last Menstrual Period: ? Previous Gynecologic Pathology: ? ASC-US: 08/30 HPV: + 08/30 HR LSIL Treatment History: ? Colposcopy: 10/30 Other: ? HPVDX - HPV testing requested regardless of diagnosis on current ThinPrep Pap test. ? SPECIMEN ADEQUACY ? Satisfactory for Evaluation - transformation zone component present GENERAL CATEGORIZATION ? Epithelial Cell Abnormality INTERPRETATION ? Squamous Cell Abnormality - Low grade squamous intraepithelial lesion (LSIL). EDUCATIONAL NOTES/RECOMMENDATI ONS ? [facility] recommends following the 2001 Consensus Guidelines for the Management of Women with Cervical Cytological Abnormalities (MARYLOU,2002;287:212 0-9). Management algorithms have been distributed by [facility] and are available online at www.ASCCP.org. ? Document reviewed and electronically signed by: ? LUIS FARMER MD ? Report Date: ??02/21/2007 11:34 End of Report [facility] 02/12/2007 02/14/2007 Rudi Milton MD PATHOLOGY ORDERABLES [facility] [address] [place] [address] documented in this encounter Visit Diagnoses Not on filedocumented in this encounter
--- OUTSIDE RECORDS SUMMARY | 2024-04-29 11:56 | XMS_ITS | Encounter Summary ---
Author Organization [facility] Address [address] [place] [address] Care Team Providers Care Egg Caser Name Role Phone Deep Zuleta MD Primary Care Provider [phone] [phone] Encounter Details Date Type Department Care Team (Late st Contact Info) Description 03/14/[address] [facility] [phone] Jasmin Reyes MD [address] [place] [address] [address] [place], [place] [id number] Social History Tobacco Use Types Packs/Day Years [...] Diagnosis Comments PAP TEST- RESULT ONLY Routine 03/14/2019 0:00 EDT documented in this encounter Results * PAP TEST- RESULT ONLY (03/14/2019 0:00 EDT) Pathology Report: CYTOPATHOLOGY REPORT Reports generated via electronic interface contain original data; however they are lacking the format of the original report. Caution should be taken when reading/interpreti ng unformatted reports. Name: ? ТАТЬЯНА ZEPEDA ? Accession #: ? [id number] ? : ? 1970 (Age: 48) ??F ?Collect Date: ? 03/14/2019 ? Location: ? [facility] ? Receive Date: ? 03/15/2019 ? Provider: JASMIN REYES MD Copy to: ? Final Report SPECIMEN ADEQUACY ? Satisfactory for Evaluation - transformation zone component present GENERAL CATEGORIZATION ? Negative for Intraepithelial Lesion or Malignancy ?? Previous Gynecologic Pathology: ASC-US: 03.11 Other: Additional clinical information: 03.11 NEG/NEG Additional clinical information: Z01.419, R87.610, Z11.51 Specimen/Source: ??Pap Test, Cervix/Endocervix, ThinPrep Imaging System with manual evaluation Document reviewed and electronically signed by: ? FREDDY Webb(ASCP) ? Report ??Date: 03/19/2019 15:58 HPV with Pap Test ? Date Ordered: ? 03/19/2019 ? Status: ?? Signed Out ?Date Complete: ? 03/20/2019 ? By: ??System Interface ? Date Reported: ? 03/20/2019 ? Interpretation RESULT: Negative for HPV. No E6 or E7 mRNA is detected from HPV types 16,18,31,33,35, 39,45,51,52,56,58, 59,66, and 68 by personal loan specialist mediated amplification. Comments Document reviewed and electronically signed by: ? System Interface ? Report date: 03/20/2019 By the signature above, the attending physician certifies that he/she has personally conducted a gross and/or microscopic examination of the described specimens and rendered or confirmed the above diagnosis. End of Report [facility] 03/14/2019 03/15/2019 Jasmin Reyes MD PATHOLOGY ORDERABLES [facility] [address] [place] [address] documented in this encounter Visit Diagnoses Not on filedocumented in this encounter Care Teams Egg Caser Relationship Specialty Start Date End Date Deep Zuleta MD [address] [place] [address] PCP - General 10/11/10 documented as of this encounter
--- OUTSIDE RECORDS SUMMARY | 2024-04-29 11:56 | XMS_ITS | Encounter Summary ---
[place] [address] Care Team Providers Care Crime Lab Analyst Name Role Phone Aisha Kessler MD Primary Care Provider Reason for Referral * Diagnostic Test (Routine) - Closed Specialty Diagnoses / Procedures Referred By Contac t Referred To Contact Radiology Diagnoses Chronic bilateral thoracic back pain Procedures MRI Thoracic Spine wo Contrast (Generic) [place] [address] [facility] [place] [address] Referral ID Status Reason Start Date Expiration Date V isits Requested Visits Authorized [id number] Closed Specialty Service Requested 11/13/2019 05/10/2020 1 1 Reason for Visit * Reason Comments Left Shoulder Pain Left Arm Pain Back Pain * Consultation (Routine) - Specialty Diagnoses / Procedures Referred By Contac t Referred To Contact [facility] Diagnoses Low back pain Spine- low back pain/ ?imaging Aisha Kessler MD [address] [place] [address] [facility] [place] [address] Referral ID Status Reason Start Date Expiration Date V isits Requested Visits Authorized [id number] Consult, Test & Treat Connection Center PCP Updated and/or Approved 11/04/2019 11/03/2020 12 12 Encounter Details Date Type Department Care Team (Late st Contact Info) Description 11/12/2019 3:00 PM EDT Office Visit [facility] at [facility] [place] [address] Ju[place] [address] Chronic bilateral thoracic back pain Social History Tobacco Use Types Packs/Day Years Used Date Smoking Tobacco: Never Smokeless Tobacco: Never Alcohol Use Standard Drinks/Week Comments No 0 (1 standard drink = 0.6 oz pur e alcohol) Sex and Gender Information Value Date Recorded Sex Assigned at Not on file Gender Identity Not on file Sexual Orientation Not on file documented as of this encounter Last Filed Vital Signs Vital Sign Reading Time Taken Comments Blood Pressure - - Pulse - - Temperature - - Respiratory Rate - - Oxygen Saturation - - Inhaled Oxygen Concentration - - Weight 66.2 kg (146 lb) 11/11/2019 8:20 AM EDT Height 175.3 cm (5' 9) 11/11/2019 8:20 AM EDT Body Mass Index 21.56 11/11/2019 8:20 AM EDT documented in this encounter Progress Notes * Juwan Earl, KALA - 11/12/2019 3:00 PM EDT SUBJECTIVE: Татьяна Geller is a 49 y.o. year old female being seen at the request of Aisha Kessler with a chief complaint of mid back pain. Patient states that she has been experiencing pain in her mid back intermittently for 12 years. She reports she does have extended periods of no pain. These current symptomsbegan with no obvious inciting incident or injury approximately 6 months ago. She describes the pain is left of midline in the mid to upper thoracic spine with pain rating to the posterior left trapezius and occasionally pain radiating caudally and laterally on the right to the lateral right lower thoracic spine. She denies pain numbness or weakness in either lower extremity. She has not identified any aggravating or alleviating factors nor has she clear on what causes the pain to flareup or resolved. Her sleep is disrupted by these pain symptoms. Prior treatments have included ibuprofen and diclofenac unclear in helpfulness hydrocodone helpful.12 years ago she had physical therapy that was not helpful. She reports seeing chiropractor regularly including for the last several months which has not been helpful. She also has trialed acupuncture which was helpful in the short-term, dry needling and ultrasound which were not helpful. Review of systems is negative for constitutional, GI, symptoms. 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 Past medical is includes chronic low back pain, and celiac disease. OBJECTIVE: On examination the patient's affect is bright, her speech is in good time to the point, she responds appropriate to questions and direction. She stands a level hips and a straight lumbar and thoracicspine. She is nontender the midline or bilateral paraspinals in the thoracic spine. Lumbar ROM is 60 degrees of flexion and 20 degrees of extension both of which aggravate her mid back pain. She walks with a steady gait and is able to toe walk, heel walk, and tandem walk. Motor exam is 5/5 strengthof all lower extremity muscle groups bilaterally. Sensation is intact in all dermatomes of lower extremities. Reflexes are 0 at the knees, and 1 at the ankles. There is no clonus or Babinski. Straight leg raise exam is negative bilaterally. Thoracic spine x-ray of 11/02/2019 is reviewed. There is a mild scoliotic curve in the upper thoracicspine. I appreciate no fracture or subluxation nor do I appreciate any evidence of advanced facet arthropathy or disc height loss. These images were briefly reviewed with the patient.. ASSESSMENT: This is a 49 y.o. year old female with chronic intermittent mid back pain with occasional pain radiating laterally across the posterior right mid to lower back in the setting of reassuring physical exam. The patient stated as a goal to obtain MRI of her thoracic spine. I am a little unclear as to the number of chiropractic visits addressing her mid back pain that she has had in the last 3 months but she does report ongoing health care aide over the last several months and reports physical therapy in the past to have been ineffective. Additionally she has been taking anti-inflammatories and pain medications which are inadequately helpful. Therefore MRI is ordered. If there is questions from insurance company as to the number of visits and ongoing care from her chiropractor for her mid back pain I would recommend they obtain documentation from her chiropractor. PLAN: 1/noncontrast MRI of the thoracic spine and a follow-up appoint with me to review those images and determine next steps in the treatment plan. documented in this encounter Plan of Treatment Not on file documented as of this encounter Results * MRI Thoracic Spine [...] please contact the number below. Juwan Earl APRN IMG MRI ORDERABLE S documented in this encounter Visit Diagnoses Diagnosis Chronic bilateral thoracic back pain Chronic bilateral thoracic back pain documented in this encounter Care Teams Crime Lab Analyst Relationship Specialty Start Date End Date Aisha Kessler MD [address] [place] [address] PCP - General Family Medicine 10/20/17 documented as of this encounter
--- OUTSIDE RECORDS SUMMARY | 2024-04-29 11:56 | XMS_ITS | Encounter Summary ---
Author Organization [facility] Address [address] [place] [address] Care Team Providers Care Virtual Assistant For Advertisers Name Role Phone Unavailable Primary Care Provider Unavailabl e Encounter Details Date Type Department Care Team (Late st Contact Info) Description 09/09/2008 Before PRISM Converted Visit (Map[facility]) [facility] - [facility] conversion [address] [place] [address] Rudi Milton MD Social History Tobacco Use [...] Priority Date/Time Associated Diagnosis Comments CYTOPATHOLOGY Routine 09/09/2008 0:00 EDT documented in this encounter Results * CYTOPATHOLOGY (09/09/2008 0:00 EDT) Pathology Report: CYTOPATHOLOGY REPORT ? Reports generated via electronic interface contain original data; ? however they are lacking the format of the original report. ? Caution should be taken when reading/interpreti ng unformatted reports. ? Name: ? ТАТЬЯНА VILLALPANDO ? Accession #: ? [id number] ? : ? 1970 (Age: 37) ??F ?Collect Date: ? 09/09/2008 ? Location: ? [facility] ? Receive Date: ? 09/11/2008 ? Provider: ?RUDI B MILTON MD ? Copy to: ? Specimen/Source: ?Pap Test, Cervix/Endocervix, ThinPrep Imaging System ? with manual evaluation ? Last Menstrual Period: ? 03/03/09 ? Previous Gynecologic Pathology: ? ASC-US: 03/07, 02/08 & 08/08 ? HPV: + HR 03/07, 05/07, 08/07, 02/08 & 08/08 ? LSIL: 05/07 & 08/07 ? Treatment History: ? Colposcopy: 05/07 L[facility]IL ? Other: ? HPVA - HPV testing requested if ASC-US on the current ThinPrep Pap test. ? SPECIMEN ADEQUACY ? Satisfactory for Evaluation ? - transformation zone component present ? GENERAL CATEGORIZATION ? Negative for Intraepithelial Lesion or Malignancy ? INTERPRETATION ? Reactive cellular changes associated with inflammation present (includes ?? repair). ? Document reviewed and electronically signed by: ? SANDEE MCCORMACK MD [facility] ? Report Date: ??09/15/2008 18:44 ? End of Report ? [facility] 09/09/2008 09/11/2008 Rudi Milton MD PATHOLOGY ORDERABLES [facility] [address] [place] [address] documented in this encounter Visit Diagnoses Not on filedocumented in this encounter
--- OUTSIDE RECORDS SUMMARY | 2024-04-29 11:56 | XMS_ITS | Encounter Summary ---
Author Organization [facility] Address [address] [place] [address] Care Team Providers Care Deoiling Machine Operator Name Role Phone Deep Zuleta MD Primary Care Provider [phone] Encounter Details Date Type Department Care Team (Late st Contact Info) Description 02/27/2018 Historical Results Only [facility] - [facility] - [address] [place], [place] [id number] Angeles Mejias MD [address] [place] [address]- [address] [place] [id number] Social History Tobacco Use Types Packs/Day Years Used Date Smoking Tobacco: Never Assessed Sex and Gender Information Value Date Recorded Sex Assigned at Not on file Gender Identity Not on file Sexual Orientation Not on file documented as of this encounter Plan of Treatment Not on file documented as of this encounter Procedures Procedure Name Priority Date/Time Associated Diagnosis Comments THYROID CASCADE Routine 02/27/2018 10:05 EDT documented in this encounter Results * (ABNORMAL) THYROID CASCADE (02/27/2018 10:05 EDT) TSH 0.04(L) 0.46 - 4.68 uIU/mL 02/27/2018 11:42 EDT [facility] 02/27/2018 10:0 5 EDT 02/27/2018 10:06 EDT Angeles Mejias MD CHEMISTRY & BLOOD GA S ORDERABLES [facility] documented in this encounter Visit Diagnoses Not on filedocumented in this encounter Care Teams Deoiling Machine Operator Relationship Specialty Start Date End Date Deep Zuleta MD [address] [place] [id number] PCP - General 10/11/10 documented as of this encounter
--- OUTSIDE RECORDS SUMMARY | 2024-04-29 11:56 | XMS_ITS | Encounter Summary ---
Author Organization [facility] Address [address] [place] [address] Care Team Providers Care Third Steel Pourer Name Role Phone Deep Zuleta MD Primary Care Provider [phone] Encounter Details Date Type Department Care Team (Late st Contact Info) Description 12/11/2023 Lab Requisition [facility] Pathology & Laboratory Medicine - [address] [address] Outr Resulting Lab, Provider Social History Tobacco [...] Procedure Name Priority Date/Time Associated Diagnosis Comments HOLD SST Today 12/11/2023 7:55 EDT T3 FREE Today 12/11/2023 7:55 EDT THYROID ANTIBODIES Today 12/11/2023 7:55 EDT documented in this encounter Results * HOLD SST (12/11/2023 7:55 EDT) Hold Hold 12/11/2023 23:15 EDT [facility] Blood VENOUS BLOOD / Unknown 12/11/2023 7:55 EDT 12/11/2023 22:07 EDT Provider Outr Resulting Lab LAB INFO SER VICE AND SUPPORT & PHONE RESULT Performing Organization Address [facility]/ZIP Co de Phone Number [facility] [address] [place], [place] [address] * T3 FREE (12/11/2023 7:55 EDT) T3, Free 3.8 2.8 - 5.3 pg/mL 12/11/2023 22:38 EDT [facility] Blood VENOUS BLOOD / Unknown 12/11/2023 7:55 EDT 12/11/2023 22:07 EDT Provider Outr Resulting Lab CHEMISTRY & BLOOD GAS ORDERABLES Performing Organization Address City/[facility] Co de Phone Number [facility] [address] [place], [place] [phone] * THYROID ANTIBODIES (12/11/2023 7:55 EDT) Anti-Thyroglobulin <15 <=60 U/mL 2023 8:40 EDT [facility] Thyroperoxidase Ab 29 <=60 U/mL 2023 8:40 EDT [facility] Blood VENOUS BLOOD / Unknown 12/11/2023 7:55 EDT 12/11/2023 22:07 EDT Provider Outr Resulting Lab CHEMISTRY & BLOOD GAS ORDERABLES Performing Organization Address City/[facility]/ZIP Co de Phone Number [facility] [address] [place], [place] [address] documented in this encounter Visit Diagnoses Not on filedocumented in this encounter Care Teams Third Steel Pourer Relationship Specialty Start Date End Date Deep Zuleta MD [address] [place] [id number] PCP - General 10/11/10 documented as of this encounter
--- OUTSIDE RECORDS SUMMARY | 2024-04-29 11:56 | XMS_ITS | Encounter Summary ---
Author Organization [facility] Address [address] [place] [address] Care Team Providers Care Drafter Electrical Name Role Phone Unavailable Primary Care Provider Unavailabl e Encounter Details Date Type Department Care Team (Late st Contact Info) Description 09/29/2009 Results Only [facility] Laboratory Services - [facility] ([address] [id number] Rudi Milton MD Social History Tobacco Use [...] Comments HPV DETECTION, HIGH RISK TYPES Routine 09/29/2009 14:30 EDT CYTOPATHOLOGY Routine 09/29/2009 0:00 EDT documented in this encounter Results * HUMAN PAPILLOMA VIRUS DNA TEST (09/29/2009 14:30 EDT) Specimen Description Cervix, ThinPrep vial [facility] Result Negative for HPV types 16, 18, 31, 33, 35, 39, 45, 51, 52, 56, 58, 59, and 68. [facility] Report Status Final 10/14/2009 [facility] 09/29/2009 14:3 0 EDT 10/12/2009 14:30 EDT Rudi Milton MD MICROBIOLOGY - GENER AL ORDERABLES [facility] [address] [place] [address] * CYTOPATHOLOGY (09/29/2009 0:00 EDT) Pathology Report: CYTOPATHOLOGY REPORT ? Reports generated via electronic interface contain original data; ? however they are lacking the format of the original report. ? Caution should be taken when reading/interpreti ng unformatted reports. ? Name: ? ТАТЬЯНА VILLALPANDO ? Accession #: ? [id number] ? : ? 1970 (Age: 39) ??F ?Collect Date: ? 09/29/2009 ? Location: ? [facility] ? Receive Date: ? 10/01/2009 ? Provider: ?RUDI B MILTON MD ? Copy to: ? Specimen/Source: ?Pap Test, Cervix/Endocervix, ThinPrep Imaging System ? with manual evaluation ? Last Menstrual Period: ? Previous Gynecologic Pathology: ? ASC-US: 03/07, 02/08 & 08/08 ? HPV: + HR 03/07, 05/07, 08/07, 02/08 & 08/08 ? LSIL: 05/07 & 08/07 ? Treatment History: ? Colposcopy: 05/07 LGHIL ? Other: ? HPVDX - HPV testing requested regardless of diagnosis on current ThinPrep Pap ?? test. ? SPECIMEN ADEQUACY ? Satisfactory for Evaluation ? - transformation zone component present ? GENERAL CATEGORIZATION ? Negative for Intraepithelial Lesion or Malignancy ? INTERPRETATION ? Reactive cellular changes associated with inflammation present (includes ?? repair). ? Document reviewed and electronically signed by: ? DWIGHT COOPER MD ? Report Date: ??10/12/2009 10:38 ? End of Report ? [facility] 09/29/2009 10/01/2009 Rudi Milton MD PATHOLOGY ORDERABLES [facility] [address] [place] [address] documented in this encounter Visit Diagnoses Not on filedocumented in this encounter
--- OUTSIDE RECORDS SUMMARY | 2024-04-29 11:56 | XMS_ITS | Encounter Summary ---
Author Organization [facility] Address [address] [place] [address] Care Team Providers Care Microsoft Exchange Architect Name Role Phone Unavailable Primary Care Provider Unavailabl e Encounter Details Date Type Department Care Team (Late st Contact Info) Description 07/12/2000 Results Only [facility] - [facility] conversion [address] [place] [address] Rudi Milton MD Social History Tobacco Use [...] Priority Date/Time Associated Diagnosis Comments CYTOPATHOLOGY Routine 07/12/2000 0:00 EST documented in this encounter Results * CYTOPATHOLOGY (07/12/2000 0:00 EST) Pathology Report: CYTOPATHOLOGY REPORT Reports generated via electronic interface contain original data; however they are lacking the format of the original report. Caution should be taken when reading/interpreti ng unformatted reports. Name: ? KWASI, ТАТЬЯНА R ? Accession #: ? [id number] : ? 1970 (Age: 29) ??F ?Collect Date: ? 07/12/2000 Location: ? [facility] ? Receive Date: ? 07/14/2000 Provider: ?RUDI MILTON MD Copy to: ? Specimen/Source: ?ThinPrep Pap Test, Endocervix Last Menstrual Period: ? 07/03/00 ? SPECIMEN ADEQUACY ? Satisfactory for evaluation but limited by an absence of a transformation zone component. GENERAL CATEGORIZATION ? Within Normal Limits ? Document reviewed and electronically signed by: ? Annie Moore [facility](ASCP) ? Report Date: ??07/17/2000 09:24 End of Report [facility] 07/12/2000 07/14/2000 Rudi Milton MD PATHOLOGY ORDERABLES [facility] [address] [place] [address] documented in this encounter Visit Diagnoses Not on filedocumented in this encounter
--- OUTSIDE RECORDS SUMMARY | 2024-04-29 11:56 | XMS_ITS | Encounter Summary ---
Author Organization [facility] Address [address] [place] [address] Care Team Providers Care Naval Architect Specialist Name Role Phone Unavailable Primary Care Provider Unavailabl e Encounter Details Date Type Department Care Team (Late st Contact Info) Description 10/01/2002 Results Only [facility] - Maple conversion [address] [place] [address] Rudi Milton MD Social History Tobacco Use [...] Priority Date/Time Associated Diagnosis Comments CYTOPATHOLOGY Routine 10/01/2002 0:00 EDT documented in this encounter Results * CYTOPATHOLOGY (10/01/2002 0:00 EDT) Pathology Report: CYTOPATHOLOGY REPORT Reports generated via electronic interface contain original data; however they are lacking the format of the original report. Caution should be taken when reading/interpreti ng unformatted reports. Name: ? ТАТЬЯНА VILLALPANDO ? Accession #: ? [id number] : ? 1970 (Age: 32) ??F ?Collect Date: ? 10/01/2002 Location: ? [facility] ? Receive Date: ? 10/03/2002 Provider: ?RUDI MILTON MD Copy to: ? Specimen/Source: ?ThinPrep Pap Test, Cervix/Endocervix Last Menstrual Period: ? 09/23/02 Other: ? HPVA - HPV testing requested if ASC-US on the current ThinPrep Pap test. ? SPECIMEN ADEQUACY ? Satisfactory for Evaluation - transformation zone component present GENERAL CATEGORIZATION ? Negative for Intraepithelial Lesion or Malignancy ? Document reviewed and electronically signed by: ? FREDDY Lloyd(ASCP) ? Report Date: ??10/08/2002 09:40 End of Report [facility] 10/01/2002 10/03/2002 Rudi Milton MD PATHOLOGY ORDERABLES [facility] [address] [place] [address] documented in this encounter Visit Diagnoses Not on filedocumented in this encounter
--- OUTSIDE RECORDS SUMMARY | 2024-04-29 11:56 | XMS_ITS | Encounter Summary ---
Author Organization [facility] Address [address] [place] [address] Care Team Providers Care Oncology Research Rn Name Role Phone Unavailable Primary Care Provider Unavailabl e Encounter Details Date Type Department Care Team (Latest Contact Info) Description 06/14/2004 9:56 EST - 06/15/2004 11:59 EST Hospital Encounter [facility] General Surgery Unit [address] [place] [address] Gerber Dixon, DMD Discharge Disposition: Home or Self Care Social History Tobacco Use Types Packs/Day Years Used Date Smoking Tobacco: Never Assessed Sex and Gender Information Value Date Recorded Sex Assigned at Not on file Gender Identity Not on file Sexual Orientation Not on file documented as of this encounter Discharge Disposition Disposition Code Departure Means Destination Home or Self Care documented in this encounter Plan of Treatment Not on file documented as of this encounter Visit Diagnoses Not on filedocumented in this encounter
--- OUTSIDE RECORDS SUMMARY | 2024-04-29 11:56 | XMS_ITS | Encounter Summary ---
Author Organization [facility] Address [address] [place] [address] Care Team Providers Care Car Examiner Name Role Phone Deep Zuleta MD Primary Care Provider [phone] Encounter Details Date Type Department Care Team (Late st Contact Info) Description 10/06/2010 Results Only [facility] Laboratory Services - [address] [id number] Rudi Milton MD Social History Tobacco Use [...] Diagnosis Comments PAP TEST- RESULT ONLY Routine 10/06/2010 0:00 EDT CYTOPATHOLOGY Routine 10/06/2010 0:00 EDT documented in this encounter Results * PAP TEST- RESULT ONLY (10/06/2010 0:00 EDT) Pathology Report: CYTOPATHOLOGY REPORT ? Reports generated via electronic interface contain original data; ? however they are lacking the format of the original report. ? Caution should be taken when reading/interpreti ng unformatted reports. ? Name: ? ТАТЬЯНА VARMA ? Accession #: ? [id number] ? : ? 1970 (Age: 40) ??F ?Collect Date: ? 10/06/2010 ? Location: ? [facility] ? Receive Date: ? 10/11/2010 ? Provider: RUDI B MILTON MD ? Copy to: ? Final Report ? SPECIMEN ADEQUACY ? Satisfactory for Evaluation ? - transformation zone component present ? GENERAL CATEGORIZATION ? Negative for Intraepithelial Lesion or Malignancy ? Last Menstural Period: 09/13/10 ? Previous Gynecologic Pathology: ASC-US: 08/30, 08/03, 01/31 ? LSIL: 10/30, 01/30 ? HPV: + HR HPV 08/30, 01/30, 08/03, 01/31 ? Treatment History: Colposcopy: 10/30 ? Other: Additional clinical information: paps WNL 09/01, 10/03, -HR HPV 10/03 ? Specimen/Source: ??Pap Test, Cervix/Endocervix, ThinPrep Imaging System with ? manual evaluation ? Document reviewed and electronically signed by: ? Aisha Martinez, SCT(ASCP) ? Report ??Date: 10/15/2010 15:28 ? HPV with Pap Test ? Date Ordered: ? 10/18/2010 ? Status: ?? Signed Out ?Date Complete: ? 10/21/2010 ? By: ??System Interface ? Date Reported: ? 10/21/2010 ? Interpretation ? RESULT: Negative for HPV types 16, 18, 31, 33, 35, 39, 45, 51, 52, ? 56, 58, 59, and 68. ? Comments ? Document reviewed and electronically signed by: ? System Interface ? Report date: 10/21/2010 ? By the signature above, the attending physician certifies that he/she has ? personally conducted a gross and/or microscopic examination of the described ? specimens and rendered or confirmed the above diagnosis. ? End of Report ? [facility] 10/06/2010 10/11/2010 uRdi Milton MD PATHOLOGY ORDERABLES [facility] [address] [place] [address] * CYTOPATHOLOGY (10/06/2010 0:00 EDT) Pathology Report: CYTOPATHOLOGY REPORT ? Reports generated via electronic interface contain original data; ? however they are lacking the format of the original report. ? Caution should be taken when reading/interpreti ng unformatted reports. ? Name: ? KOJO, ТАТЬЯНА R ? Accession #: ? [id number] ? : ? 1970 (Age: 40) ??F ?Collect Date: ? 10/06/2010 ? Location: ? [facility] ? Receive Date: ? 10/11/2010 ? Provider: ?RUDI B MILTON MD ? Copy to: ? Specimen/Source: ?Pap Test, Cervix/Endocervix, ThinPrep Imaging System ? with manual evaluation ? Last Menstrual Period: ? 3/21/11 ? Previous Gynecologic Pathology: ? ASC-US: 3/07, 2/08, 8/08 ? LSIL: 5/07, 8/07 ? HPV: + HR HPV 3/07, 8/07, 2/08, 8/08 ? Treatment History: ? Colposcopy: 5/07 ? Other: ? Additional clinical information: paps WNL 3/09, 4/10, -HR HPV 4/10 ? SPECIMEN ADEQUACY ? Satisfactory for Evaluation ? - transformation zone component present ? GENERAL CATEGORIZATION ? Negative for Intraepithelial Lesion or Malignancy ? Document reviewed and electronically signed by: ? Aisha Martinez, SCT(ASCP) ? Report Date: ??10/15/2010 15:28 ? End of Report ? [facility] 10/06/2010 10/11/2010 Rudi Milton MD PATHOLOGY ORDERABLES [facility] [address] [place] [address] documented in this encounter Visit Diagnoses Not on filedocumented in this encounter Care Teams Car Examiner Relationship Specialty Start Date End Date Deep Zuleta MD [address] [place] [id number] PCP - General 10/11/10 documented as of this encounter
--- OUTSIDE RECORDS SUMMARY | 2024-04-29 11:56 | XMS_ITS | Encounter Summary ---
Author Organization [facility] Address [address] [place] [address] Care Team Providers Care Polymer Engineer Name Role Phone Deep Zuleta MD Primary Care Provider [phone] Encounter Details Date Type Department Care Team (Late st Contact Info) Description 02/27/2018 Historical Results Only [facility] - [facility] - Main [place] [address] [place] [address] Angeles Mejias MD [address] [place] [address]- [address] [place] [phone] Social History Tobacco Use Types Packs/Day Years Used Date Smoking Tobacco: Never Assessed Sex and Gender Information Value Date Recorded Sex Assigned at Not on file Gender Identity Not on file Sexual Orientation Not on file documented as of this encounter Plan of Treatment Not on file documented as of this encounter Procedures Procedure Name Priority Date/Time Associated Diagnosis Comments T3, TOTAL Routine 02/27/2018 10:05 EDT documented in this encounter Results * T3, TOTAL (02/27/2018 10:05 EDT) TOTAL T3, External 1.45 0.97 - 1.69 ng/mL 02/27/2018 11:40 EDT [facility] 02/27/2018 10:0 5 EDT 02/27/2018 10:06 EDT Angeles Mejias MD CHEMISTRY & BLOOD GA S ORDERABLES [facility] documented in this encounter Visit Diagnoses Not on filedocumented in this encounter Care Teams Polymer Engineer Relationship Specialty Start Date End Date Deep Zuleta MD [address] [place] [id number] PCP - General 10/11/10 documented as of this encounter
--- OUTSIDE RECORDS SUMMARY | 2024-04-29 11:56 | XMS_ITS | Encounter Summary ---
Author Organization [facility] Address [address] [place] [address] Care Team Providers Care Soa Integration Developer Name Role Phone Deep Zuleta MD Primary Care Provider [phone] Encounter Details Date Type Department Care Team (Late st Contact Info) Description 11/01/2011 Results Only [facility] Services - [facility] [address] [place] [id number] Kavon Smith MD [address] [place] [id number] Social History Tobacco Use Types Packs/Day Years Used Date Smoking Tobacco: Never Assessed Sex and Gender Information Value Date Recorded Sex Assigned at Not on file Gender Identity Not on file Sexual Orientation Not on file documented as of this encounter Plan of Treatment Not on file documented as of this encounter Procedures Procedure Name Priority Date/Time Associated Diagnosis Comments SURGICAL PATHOLOGY Routine 11/01/2011 0:00 EDT documented in this encounter Results * SURGICAL PATHOLOGY (11/01/2011 0:00 EDT) Pathology Report: SURGICAL PATHOLOGY REPORT Reports generated via electronic interface contain original data; however they are lacking the format of the original report. Caution should be taken when reading/interpreti ng unformatted reports. Name: ? ТАТЬЯНА VARMA Viri ? Accession #: ? [id number] ? : ? 1970 (Age: 41) ??F ? Collect Date: ? 11/01/2011 ? Location: ? [facility] ? Receive Date: ? 11/03/2011 ? Provider: KAVON SMITH MD Copy to: HAILY MILTON MD ? Final Pathologic Diagnosis: ? Breast, left, 7 o'clock, 2 cm from nipple, needle core biopsy: 1. ?Benign fibrocystic changes including: ? - Adenosis. ?- Apocrine metaplasia. ?- Interlobular fibrosis. See comment. Comment: ? The breast biopsy contains benign breast tissue including a small irregular focus of interlobular fibrosis measuring 0.5 cm. The remainder of the core biopsy consists of adipose. Clinical correlation is suggested; the findings may not be loan servicing representative of the clinically described 1.0 cm mass. (Drs. Frank and Shelton) Document reviewed and electronically signed by: BRADY CHRISTIE MD Report ??Date: 11/07/2011 16:22 By the signature above, the attending physician certifies that he/she has personally conducted a gross and/or microscopic examination of the described specimens and rendered or confirmed the above diagnosis. Specimen(s) Received: ? Left breast, 7 o'clock, 2 cm from nipple Clinical History: ? Category IV mammo; left breast, distance from nipple 2 cm, lump size 1.0 cm Gross Description: ? Received in formalin labelled Татьяна Varma and James breast core bx are four modi-white, focally martinez-yellow cylindrical soft tissue fragments ranging from 0.6 to 1.7 cm in length and averaging 0.1 cm in diameter. ??The specimen is entirely submitted as (A1) and (A2). (Ilda Benito)/mpl Time removed from patient: not documented on requistion Time in formalin: 11/01/11 at 1730 hours Time out of formalin: 11/03/11 at 11:30 hours End of Report [facility] 11/01/2011 11/03/2011 8:1 6 EDT Kavon Smith MD PATHOLOGY ORDERABLE S Performing Organization Address City/State/[facility] Co de Phone Number [facility] [address] [place] [address] documented in this encounter Visit Diagnoses Not on filedocumented in this encounter Care Teams Soa Integration Developer Relationship Specialty Start Date End Date Deep Zuleta MD [address] [place] [id number] PCP - General 10/11/10 documented as of this encounter
--- OUTSIDE RECORDS SUMMARY | 2024-04-29 11:56 | XMS_ITS | Encounter Summary ---
Author Organization [facility] Address [address] [place] [address] Care Team Providers Care Balance Staff Staker Name Role Phone Unavailable Primary Care Provider Unavailabl e Encounter Details Date Type Department Care Team (Late st Contact Info) Description 11/12/2003 Results Only [facility] - Maple conversion [address] [place] [address] Rudi Milton MD Social History Tobacco Use [...] Priority Date/Time Associated Diagnosis Comments CYTOPATHOLOGY Routine 11/12/2003 0:00 EDT documented in this encounter Results * CYTOPATHOLOGY (11/12/2003 0:00 EDT) Pathology Report: CYTOPATHOLOGY REPORT Reports generated via electronic interface contain original data; however they are lacking the format of the original report. Caution should be taken when reading/interpreti ng unformatted reports. Name: ? ТАТЬЯНА VILLALPANDO R ? Accession #: ? [id number] : ? 1970 (Age: 33) ??F ?Collect Date: ? 11/12/2003 Location: ? [facility] ? Receive Date: ? 11/14/2003 Provider: ?RUDI MILTON MD Copy to: ? Specimen/Source: ?ThinPrep Pap Test, Cervix/Endocervix Last Menstrual Period: ? 10/25/03 Other: ? HPVA - HPV testing requested if ASC-US on the current ThinPrep Pap test. ? SPECIMEN ADEQUACY ? Satisfactory for Evaluation - transformation zone component present GENERAL CATEGORIZATION ? Negative for Intraepithelial Lesion or Malignancy ? Document reviewed and electronically signed by: ? FREDDY Lloyd(ASCP) ? Report Date: ??11/19/2003 13:19 End of Report [facility] 11/12/2003 11/14/2003 Rudi Milton MD PATHOLOGY ORDERABLES [facility] [address] [place] [address] documented in this encounter Visit Diagnoses Not on filedocumented in this encounter
--- OUTSIDE RECORDS SUMMARY | 2024-04-29 11:56 | XMS_ITS | Encounter Summary ---
Author Organization [facility] [place] [address] Care Team Providers Care Online Merchandiser Name Role Phone Aisha Kessler MD Primary Care Provider [phone] Reason for Visit * Reason Comments Back Pain Encounter Details Date Type Department Care Team (Late st Contact Info) Description 12/30/2019 11:00 AM EDT Office Visit [facility] [place] [phone] Ridge Randall MD [facility] [place] [address] Chronic bilateral thoracic back pain Social History [...] Sign Reading Time Taken Comments Blood Pressure 109/80 12/30/2019 11:02 AM EDT Pulse - - Temperature 36.7 ??C (98 ??F) 12/30/2019 11:02 AM EDT Respiratory Rate - - Oxygen Saturation - - Inhaled Oxygen Concentration - - Weight - - Height - - Body Mass Index - - documented in this encounter Progress Notes * Ridge Randall MD - 12/30/2019 11:00 AM EDT Interim history: The patient returns for follow-up after completion of thoracic MRI. She reports left medial parascapular pain without radiation. She has had chronic recurrent midthoracic pain for the past 12 years. The last pain recurrence began in May 2019 and was of acute onset. The current pain is intermittent and aching in quality. She grades her pain as 0/10, 'Cause I have painkillers in me. She denies upper extremity pain radiation, numbness, tingling or focal upper extremity weakness. There are no specific exacerbating factors. Pain is decreased by heat and by the use of hydrocodone which she has been taking regularly for the past 12 years. Review of Systems: A comprehensive review of systems was negative except for: as noted above. Objective: BP 109/80 Temp 36.7 ??C (98 ??F) The patient is alert and oriented x3. Affect is appropriate. The patient refused hands-on physical examination. Imaging: Thoracic MRI, 12/30/2019: There is no evidence of spondylolisthesis. Vertebral heights are maintainedthroughout. There is no evidence of fracture. There is no significant central stenosis, no focal disc herniation or nerve root impingement. Intervertebral foraminal narrowing is mild on the right at T8-T9. Assessment: Encounter Diagnosis Name Primary? Chronic bilateral thoracic back pain The thoracic MRI results have been reviewed with the patient. They are reassuring. No evidence of focal disc herniation, nerve root impingement, central stenosis or significant spondylotic changes are noted. The patient has a known mild mid thoracic scoliosis. We discussed the likelihood that her chronic thoracic pain has a myofascial component. The patient was not interested in having this clinical possibility evaluated in further detail. She stated that she was satisfied with the thoracic MRI results and would pursue further evaluationand treatment through her primary care physician. Plan: 1. Follow-up here on an as-needed basis. 2. If there is clinical concern regarding chronic use of short acting opioids, consideration shouldbe given to referral for chronic pain management at the [facility]. Ridge Randall MD, MS 12/30/2019 documented in this encounter Plan of Treatment Not on file documented as of this encounter Visit Diagnoses Diagnosis Chronic bilateral thoracic back pain documented in this encounter Care Teams Online Merchandiser Relationship Specialty Start Date End Date Aisha Kessler MD [address] [place] [address] PCP - General Family Medicine 10/20/17 documented as of this encounter
--- OUTSIDE RECORDS SUMMARY | 2024-04-29 11:56 | XMS_ITS | Encounter Summary ---
Author Organization [facility] Address [address] [place] [address] Care Team Providers Care Server Developer Name Role Phone Deep Zuleta MD Primary Care Provider [phone] Encounter Details Date Type Department Care Team (Late st Contact Info) Description 06/18/2004 Before PRISM Converted Visit (Maple) [facility] - Maple conversion [address] [place] [address] Gerber Dixon, DMD Social History Tobacco Use Types Packs/Day Years Used Date Smoking Tobacco: Never Assessed Sex and Gender Information Value Date Recorded Sex Assigned at Not on file Gender Identity Not on file Sexual Orientation Not on file documented as of this encounter Plan of Treatment Not on file documented as of this encounter Visit Diagnoses Not on filedocumented in this encounter Care Teams Server Developer Relationship Specialty Start Date End Date Deep Zuleta MD [address] [place] [phone] PCP - General 10/11/10 documented as of this encounter
--- OUTSIDE RECORDS SUMMARY | 2024-04-29 11:56 | XMS_ITS | Encounter Summary ---
Author Organization [facility] Address [address] [place] [address] Care Team Providers Care Key Punch Teacher Name Role Phone Deep Zuleta MD Primary Care Provider [phone] Encounter Details Date Type Department Care Team (Late st Contact Info) Description 02/27/[address] [facility] - Main [place] [address] [place] [phone] Angeles Mejias MD [address] [place] [address] [place] [phone] Social History Tobacco Use Types Packs/Day Years Used Date Smoking Tobacco: Never Assessed Sex and Gender Information Value Date Recorded Sex Assigned at Not on file Gender Identity Not on file Sexual Orientation Not on file documented as of this encounter Plan of Treatment Not on file documented as of this encounter Procedures Procedure Name Priority Date/Time Associated Diagnosis Comments T4 FREE Routine 02/27/2018 10:05 EDT documented in this encounter Results * T4 FREE (02/27/2018 10:05 EDT) FREE [address] 0.87 0.78 - 2.19 ng/dl 02/27/2018 11:42 EDT [facility] 02/27/2018 10:0 5 EDT 02/27/2018 10:06 EDT Angeles Mejias MD CHEMISTRY & BLOOD GA S ORDERABLES [facility] documented in this encounter Visit Diagnoses Not on filedocumented in this encounter Care Teams Key Punch Teacher Relationship Specialty Start Date End Date Deep Zuleta MD [address] [place] [id number] PCP - General 10/11/10 documented as of this encounter
--- OUTSIDE RECORDS SUMMARY | 2024-04-29 11:56 | XMS_ITS | Clinical Summary ---
Author Organization [facility] [place] [address] Care Team Providers Care Resistor Winder Name Role Phone Aisha Kessler MD Primary Care Provider [phone] Allergies No known active allergies Medications Medication Sig Dispensed Refills Start Date End Date Status ferrous sulfate 324 mg (65 mg iron) Tablet, Delayed Release (E.C.) Take 324 mg by mouth daily. Active zolpidem (AMBIEN) 5 mg Tablet Take 5 mg by mouth nightly as needed for Sleep. Active HYDROCODONE/ACETAM INOPHEN (VICODIN ORAL) Take by mouth as needed. Patient takes 5-325 mg as needed Active methIMAzole (TAPAZOLE) 10 mg TabletIndications: Graves disease Take 1.5 tablets by mouth daily. Or alternate 10 mg a day with 20 mg a day 135 tablet 3 05/22/2018 Active Additional Information Patient taking differently: 5 mgOralEVERY OTHER DAY, (No instructions reported), Reported on 11/11/2019 diclofenac (CATAFLAM) 50 mg Tablet as needed. 07/08/2019 Active ibuprofen (Advil;Motrin) 200 mg Tablet Take 600 mg by mouth as needed for Pain. Active Active Problems Problem Noted Date Diagnosed Date Chronic bilateral thoracic back pain 11/12/2019 Hyperthyroidism w/tachycardi a, wt loss 5 lbs, heat intolerance, fatigue in Sep 2017 10/27/2017 Chronic low back pain 06/07/2016 Celiac disease 10/27/2014 Overview (10/27/2014): Elevated TTG (15.5) and confirmed on EGD/biopsy Asymptomatic Anemia 07/02/2014 Family History Medical History Relation Comments Celiac Disease Daughter Relation Status Comments Daughter Social History Tobacco Use Types Packs/Day Years Used Date Smoking Tobacco: Never Smokeless Tobacco: Never Alcohol Use Standard Drinks/Week Comments No 0 (1 standard drink = 0.6 oz pur e alcohol) Sex and Gender Information Value Date Recorded Sex Assigned at Not on file Gender Identity Not on file Sexual Orientation Not on file Last Filed Vital Signs Vital Sign Reading Time Taken Comments Blood Pressure 109/80 12/30/2019 11:02 AM EDT Pulse 65 07/29/2019 3:16 PM EST Temperature 36.7 ??C (98 ??F) 12/30/2019 11:02 AM EDT Respiratory Rate 16 09/25/2014 9:45 AM EDT Oxygen Saturation 99% 07/29/2019 3:16 PM EST Inhaled Oxygen Concentration - - Weight 66.2 kg (146 lb) 11/11/2019 8:20 AM EDT Height 175.3 cm (5' 9) 11/11/2019 8:20 AM EDT Body Mass Index 21.56 11/11/2019 8:20 AM EDT Plan of Treatment Health Maintenance Due Date Last Done Comments CT Colonography 1970 Colonoscopy 1970 Colorectal Cancer Screening 1970 FIT DNA 1970 FIT 1970 Sigmoidoscopy (10 year) with FIT yearly 1970 Sigmoidoscopy 1970 HIV screen 1988 Hepatitis C Screening 1988 Hepatitis B vaccine (0-59 yrs) (1) 1989 Tetanus/Diphtheria/Pertussis Vaccines (1 - Tdap) 09/30 HPV test 2000 PAP Smear 2000 Breast Cancer Share Decision Needed 2010 Breast Cancer screening 2010 Zoster vaccine (1 of 2) 2020 Covid-19 Vaccine (1 - season) 2024 Influenza (Flu) vaccine (1 o f 1 - Influenza standard series) 02/25/2024 Care Teams Resistor Winder Relationship Specialty Start Date End Date Aisha Kessler MD [address] [place], [place] [phone] PCP - General Family Medicine 10/20/17
--- OUTSIDE RECORDS SUMMARY | 2024-04-29 11:56 | XMS_ITS | Encounter Summary ---
Author Organization [facility] Address [address] [place] [address] Care Team Providers Care Electrical Engineering Designer Name Role Phone Unavailable Primary Care Provider Unavailabl e Encounter Details Date Type Department Care Team (Late st Contact Info) Description 02/06/2008 Before PRISM Converted Visit (Maple) [facility] - Maple conversion [address] [place] [address] Rudi Milton MD Social History Tobacco Use [...] Comments HPV DETECTION, HIGH RISK TYPES Routine 02/06/2008 17:10 EDT CYTOPATHOLOGY Routine 02/06/2008 0:00 EDT documented in this encounter Results * HUMAN PAPILLOMA VIRUS DNA TEST (02/06/2008 17:10 EDT) Specimen Description Cervix, ThinPrep vial [facility] Result Positive for one or more of HPV types 16,18,31,33,35 ,39,45,51,52,5 6,58,59, or 68. These high/intermedi ate risk HPV types are associated with dysplasia and some cervical cancers. [facility] Report Status Final [id number] [facility] 02/06/2008 17:1 0 EDT 02/14/2008 17:10 EDT Rudi Milton MD MICROBIOLOGY - GENER AL ORDERABLES [facility] [address] [place] [address] * CYTOPATHOLOGY (02/06/2008 0:00 EDT) Pathology Report: CYTOPATHOLOGY REPORT ? Reports generated via electronic interface contain original data; ? however they are lacking the format of the original report. ? Caution should be taken when reading/interpreti ng unformatted reports. ? Name: ? ТАТЬЯНА VILLALPANDO ? Accession #: ? [id number] ? : ? 1970 (Age: 37) ??F ?Collect Date: ? 02/06/2008 ? Location: ? [facility] ? Receive Date: ? 02/08/2008 ? Provider: ?RUDI B MILTON MD ? Copy to: ? Specimen/Source: ?ThinPrep Pap Test, Cervix/Endocervix, processed on [employer] ThinPrep Imaging System, with manual evaluation ? Last Menstrual Period: ? Previous Gynecologic Pathology: ? ASC-US: 3/07, 2/08 ? HPV: + HR HPV 3/07, 2/08, 5/07, 8/07 ? LSIL: 5/07, 8/07 ? Treatment History: ? Colposcopy: 5/07 - LSIL ? Other: ? HPVDX - HPV testing requested regardless of diagnosis on current ThinPrep Pap ?? test. ? SPECIMEN ADEQUACY ? Satisfactory for Evaluation ? - transformation zone component present ? GENERAL CATEGORIZATION ? Epithelial Cell Abnormality ? INTERPRETATION ? Squamous Cell Abnormality - Atypical squamous cells, undetermined ? significance (ASC-US). ? EDUCATIONAL NOTES/RECOMMENDATI ONS ? [facility] recommends following the 2006 Consensus Guidelines for the Management of Women with Abnormal Cervical Cancer Screening Tests (JLGTD, ? 2007;11(4):201-222 ). ??Consensus guidelines are available online at ? www.ASCCP.org. ? Document reviewed and electronically signed by: ? Anastasiia C Perdomo MD ? Report Date: ??02/13/2008 15:29 ? End of Report ? [facility] 02/06/2008 02/08/2008 Rudi Milton MD PATHOLOGY ORDERABLES [facility] [address] [place] [address] documented in this encounter Visit Diagnoses Not on filedocumented in this encounter
--- OUTSIDE RECORDS SUMMARY | 2024-04-29 11:56 | XMS_ITS | Clinical Summary ---
Author Organization [facility] Address [address] [place] [address] Care Team Providers Care Fish Agent Name Role Phone Deep Zuleta MD Primary Care Provider [phone] Social History Tobacco Use Types Packs/Day Years Used Date Smoking Tobacco: Never Assessed Sex and Gender Information Value Date Recorded Sex Assigned at Not on file Gender Identity Not on file Sexual Orientation Not on file Plan of Treatment Health Maintenance Due Date Last Done Comments Hepatitis C Screen 1970 Hepatitis B Vaccine (1 of 3 - 19+ 3-dose series) 09/30 COVID-19 Vaccine ( season) 2023 Advance Directives For more information, please contact: [phone] Documents on File Type Date Recorded Patient Whirley Operator Expl anation Advance Directive 03/17/2009 3:52 Care Teams Fish Agent Relationship Specialty Start Date End Date Deep Zuleta MD [address] [place] [id number] PCP - General 10/11/10
--- OUTSIDE RECORDS SUMMARY | 2024-04-29 11:56 | XMS_ITS | Encounter Summary ---
Author Organization [facility] Address [address] [place] [address] Care Team Providers Care Grocery Manager Name Role Phone Unavailable Primary Care Provider Unavailabl e Encounter Details Date Type Department Care Team (Late st Contact Info) Description 09/20/2006 Results Only [facility] - Maple conversion [address] [place] [address] Rudi Milton MD Social History Tobacco Use [...] Comments HPV DETECTION, HIGH RISK TYPES Routine 09/20/2006 13:34 EDT CYTOPATHOLOGY Routine 09/20/2006 0:00 EDT documented in this encounter Results * HUMAN PAPILLOMA VIRUS DNA TEST (09/20/2006 13:34 EDT) Specimen Description Cervix, ThinPrep vial [facility] Result Positive for one or more of HPV types 16,18,31,33,35 ,39,45,51,52,5 6,58,59, or 68. These high/intermedi ate risk HPV types are associated with dysplasia and some cervical cancers. [facility] Report Status Final [id number] [facility] 09/20/2006 13:3 4 EDT 09/28/2006 13:34 EDT Rudi Milton MD MICROBIOLOGY - GENER AL ORDERABLES [facility] [address] [place] [address] * CYTOPATHOLOGY (09/20/2006 0:00 EDT) Pathology Report: CYTOPATHOLOGY REPORT Reports generated via electronic interface contain original data; however they are lacking the format of the original report. Caution should be taken when reading/interpreti ng unformatted reports. Name: ? ТАТЬЯНА VILLALPANDO ? Accession #: ? [id number] : ? 1970 (Age: 35) ??F ?Collect Date: ? 09/20/2006 Location: ? [facility] ? Receive Date: ? 09/22/2006 Provider: ?RUDI MILTON MD Copy to: ? Specimen/Source: ?ThinPrep Pap Test, Cervix/Endocervix, processed on [employer] ThinPrep Imaging System, with manual evaluation Last Menstrual Period: ? 09/02/06 Other: ? Additional clinical information: Previous pap WNL HPVDX - HPV testing requested regardless of diagnosis on current ThinPrep Pap test. ? SPECIMEN ADEQUACY ? Satisfactory for Evaluation - transformation zone component present GENERAL CATEGORIZATION ? Epithelial Cell Abnormality INTERPRETATION ? Squamous Cell Abnormality - Atypical squamous cells, undetermined significance (ASC-US). EDUCATIONAL NOTES/RECOMMENDATI ONS ? [facility] recommends following the 2001 Consensus Guidelines for the Management of Women with Cervical Cytological Abnormalities (MARYLOU,2002;287:212 0-9). Management algorithms have been distributed by [facility] and are available online at www.ASCCP.org. ? Document reviewed and electronically signed by: ? Anastasiia Perdomo MD ? Report Date: ??09/27/2006 13:51 End of Report [facility] 09/20/2006 09/22/2006 Rudi Milton MD PATHOLOGY ORDERABLES [facility] [address] [place] [address] documented in this encounter Visit Diagnoses Not on filedocumented in this encounter
--- OUTSIDE RECORDS SUMMARY | 2024-04-29 11:56 | XMS_ITS | Encounter Summary ---
Author Organization [facility] Address [address] [place] [address] Care Team Providers Care Instructor Pilot Name Role Phone Unavailable Primary Care Provider Unavailabl e Encounter Details Date Type Department Care Team (Latest Contact Info) Description 11/26/2003 9:32 EDT - 11/26/2003 11:59 EDT Hospital Encounter [facility] [address] [place] [address] Krish Moreau, DDS [address] [place] [id number] Discharge Disposition: Auto Discharge Social History Tobacco Use Types Packs/Day Years Used Date Smoking Tobacco: Never Assessed Sex and Gender Information Value Date Recorded Sex Assigned at Not on file Gender Identity Not on file Sexual Orientation Not on file documented as of this encounter Discharge Disposition Disposition Code Departure Means Destination Auto Discharge documented in this encounter Plan of Treatment Not on file documented as of this encounter Procedures Procedure Name Priority Date/Time Associated Diagnosis Comments MR TMJ Routine 11/26/2003 10:15 EDT documented in this encounter Results * MR TMJ (11/26/2003 10:15 EDT) Anatomical Region Laterality Modality Other 11/26/2003 10:1 5 EDT Impressions 03/09/2009 10:50 EDT IMPRESSION: There is restricted translation in the open mouth position on the left side. There is an anteriorly displaced disc without proper recapture. /smita Narrative 03/09/2009 10:50 EDT PAIN MARKED LIMITATION OF ROM ?LEFT TMJ R/O DISC DISPLACEMENT WITH REDUCTION/DJD MRI OF THE TEMPOROMANDIBULAR JOINT. CLINICAL: Marked limitation range of motion on the left. Rule out DJD or disc displacement with reduction. TECHNICAL FACTORS: Multiplanar T1 and T2 weighted high-resolution imaging. FINDINGS: 1. On the right side, there is definite anterior disc displacement with recapture or reduction in the open mouth position. No effusion is seen. No evidence of high-grade arthritis is identified. 2. On the left side, there is a somewhat more macerated appearance to the articular disc with anterior displacement and without proper recapture in the open mouth position which demonstrates limitation of opening. Procedure Note BrafEnzo hansen MD, MD - 03/09/2009 PAIN MARKED LIMITATION OF ROM LEFT TMJ R/O DISC DISPLACEMENT WITH REDUCTION/DJD MRI OF THE TEMPOROMANDIBULAR JOINT. CLINICAL: Marked limitation range of motion on the left. Rule out DJD or disc displacement with reduction. TECHNICAL FACTORS: Multiplanar T1 and T2 weighted high-resolution imaging. FINDINGS: 1. On the right side, there is definite anterior disc displacement with recapture or reduction in the open mouth position. No effusion is seen. No evidence of high-grade arthritis is identified. 2. On the left side, there is a somewhat more macerated appearance to the articular disc with anterior displacement and without proper recapture in the open mouth position which demonstrates limitation of opening. IMPRESSION IMPRESSION: There is restricted translation in the open mouth position on the left side. There is an anteriorly displaced disc without proper recapture. /smita Krish Moreau DDS IMG MRI ORDERABLE S documented in this encounter Visit Diagnoses Not on filedocumented in this encounter
--- OUTSIDE RECORDS SUMMARY | 2024-04-29 11:56 | XMS_ITS | Encounter Summary ---
Author Organization [facility] Address [address] [place] [address] Care Team Providers Care Supervisor Finishing Room Name Role Phone Unavailable Primary Care Provider Unavailabl e Encounter Details Date Type Department Care Team (Late st Contact Info) Description 10/30/2006 Results Only [facility] [address] [place] [address] Rudi Milton MD Social History Tobacco Use [...] Comments HPV DETECTION, HIGH RISK TYPES Routine 10/30/2006 10:25 EDT CYTOPATHOLOGY Routine 10/30/2006 0:00 EDT documented in this encounter Results * HUMAN PAPILLOMA VIRUS DNA TEST (10/30/2006 10:25 EDT) Specimen Description Cervix, ThinPrep vial [facility] Result Positive for one or more of HPV types 16,18,31,33,35 ,39,45,51,52,5 6,58,59, or 68. These high/intermedi ate risk HPV types are associated with dysplasia and some cervical cancers. [facility] Report Status Final [id number] [facility] 10/30/2006 10:2 5 EDT 11/03/2006 10:25 EDT Rudi Milton MD MICROBIOLOGY - GENER AL ORDERABLES [facility] [address] [place] [address] * CYTOPATHOLOGY (10/30/2006 0:00 EDT) Pathology Report: CYTOPATHOLOGY REPORT Reports generated via electronic interface contain original data; however they are lacking the format of the original report. Caution should be taken when reading/interpreti ng unformatted reports. Name: ? ТАТЬЯНА VILLALPANDO ? Accession #: ? [id number] : ? 1970 (Age: 36) ??F ?Collect Date: ? 10/30/2006 Location: ? [facility] ? Receive Date: ? 10/31/2006 Provider: ?RUDI MILTON MD Copy to: ? Specimen/Source: ?ThinPrep Pap Test, Cervix/Endocervix, processed on [employer] ThinPrep Imaging System, with manual evaluation Last Menstrual Period: ? Previous Gynecologic Pathology: ? ASC-US: 08/30 HPV: + HR 08/30 Other: ? HPVDX - HPV testing requested regardless of diagnosis on current ThinPrep Pap test. ? SPECIMEN ADEQUACY ? Satisfactory for Evaluation - transformation zone component present GENERAL CATEGORIZATION ? Epithelial Cell Abnormality INTERPRETATION ? Squamous Cell Abnormality - Low grade squamous intraepithelial lesion (LSIL). EDUCATIONAL NOTES/RECOMMENDATI ONS ? [facility] recommends following the 2001 Consensus Guidelines for the Management of Women with Cervical Cytological Abnormalities (MARYLOU,2002;287:212 0-9). Management algorithms have been distributed by [facility] and are available online at www.ASCCP.org. ? Document reviewed and electronically signed by: ? LUIS FARMER MD ? Report Date: ??11/02/2006 17:36 End of Report [facility] 10/30/2006 10/31/2006 Rudi Milton MD PATHOLOGY ORDERABLES Performing Organization Address City/State/[facility] Co de Phone Number [facility] [address] [place] [address] documented in this encounter Visit Diagnoses Not on filedocumented in this encounter
--- OUTSIDE RECORDS SUMMARY | 2024-04-29 11:56 | XMS_ITS | Encounter Summary ---
Author Organization [facility] Address [address] [place] [address] Care Team Providers Care Pediatrician/Medical Doctor Name Role Phone Deep Zuleta MD Primary Care Provider [phone] Encounter Details Date Type Department Care Team (Late st Contact Info) Description 01/17/2023 Lab Requisition [facility] Pathology & Laboratory Medicine - [address] [address] Outr Resulting Lab, Provider Social History Tobacco [...] Date/Time Associated Diagnosis Comments HOLD SST Today 01/17/2023 8:17 EDT T3 FREE Today 01/17/2023 8:17 EDT THYROID ANTIBODIES Today 01/17/2023 8:17 EDT documented in this encounter Results * HOLD SST (01/17/2023 8:17 EDT) Hold Hold 01/17/2023 18:31 EDT [facility] Blood VENOUS BLOOD / Unknown 01/17/2023 8:17 EDT 01/17/2023 17:20 EDT Provider Outr Resulting Lab LAB INFO SER VICE AND SUPPORT & PHONE RESULT Performing Organization Address [facility]/ZIP Co de Phone Number [facility] [address] [place] [address] * T3 FREE (01/17/2023 8:17 EDT) T3, Free 3.9 2.8 - 5.3 pg/mL 01/17/2023 18:08 EDT [facility] Blood VENOUS BLOOD / Unknown 01/17/2023 8:17 EDT 01/17/2023 17:19 EDT Provider Outr Resulting Lab CHEMISTRY & BLOOD GAS ORDERABLES Performing Organization Address [facility] Co de Phone Number [facility] [address] [place] [address] * THYROID ANTIBODIES (01/17/2023 8:17 EDT) Anti-Thyroglobulin <15 <=60 U/mL 2022 20:14 EDT [facility] Thyroperoxidase Ab <28 <=60 U/mL 2022 20:14 EDT [facility] Blood VENOUS BLOOD / Unknown 01/17/2023 8:17 EDT 01/17/2023 17:19 EDT Provider Outr Resulting Lab CHEMISTRY & BLOOD GAS ORDERABLES Performing Organization Address [facility] Co de Phone Number [facility] [address] [place] [phone] documented in this encounter Visit Diagnoses Not on filedocumented in this encounter Care Teams Pediatrician/Medical Doctor Relationship Specialty Start Date End Date Deep Zuleta MD [address] [place] [phone] PCP - General 10/11/10 documented as of this encounter
--- OUTSIDE RECORDS SUMMARY | 2024-04-29 11:56 | XMS_ITS | Referral Summary ---
Author Organization [facility] Address [address] [place] [address] Care Team Providers Care Welder Apprentice Arc Name Role Phone Deep Zuleta MD Primary Care Provider [phone] Social History Tobacco Use Types Packs/Day Years Used Date Smoking Tobacco: Never Assessed Sex and Gender Information Value Date Recorded Sex Assigned at Not on file Gender Identity Not on file Sexual Orientation Not on file Plan of Treatment Not on file Advance Directives For more information, please contact: [phone] Documents on File Type Date Recorded Patient National Accounts Sales Expl anation Advance Directive 03/17/2009 3:52 Care Teams Welder Apprentice Arc Relationship Specialty Start Date End Date Deep Zuleta MD [address] [place] [address] PCP - General 10/11/10
--- OUTSIDE RECORDS SUMMARY | 2024-04-29 11:56 | XMS_ITS | Encounter Summary ---
[place] [address] Care Team Providers Care Compliance Officer Name Role Phone Aisha Kessler MD Primary Care Provider [phone] Reason for Visit * Reason Onset Date Comments Appointment 05/14/2021 Encounter Details Date Type Department Care Team (Late st Contact Info) Description 05/14/2021 Telephone [place] [phone] Theresa Urbano I Appointment Social History Tobacco Use Types Packs/Day Years Used Date Smoking Tobacco: Never Smokeless Tobacco: Never Alcohol Use Standard Drinks/Week Comments No 0 (1 standard drink = 0.6 oz pur e alcohol) Sex and Gender Information Value Date Recorded Sex Assigned at Not on file Gender Identity Not on file Sexual Orientation Not on file documented as of this encounter Miscellaneous Notes * Telephone Encounter - Theresa Pires I - 05/14/2021 8:54 AM EST Called to schedule an overdue FUV with Dr. Castañeda from the recalls list documented in this encounter Plan of Treatment Not on file documented as of this encounter Visit Diagnoses Not on filedocumented in this encounter Care Teams Compliance Officer Relationship Specialty Start Date End Date Aisha Kessler MD [address] [place], [place] [id number] PCP - General Family Medicine 10/20/17 documented as of this encounter
--- OUTSIDE RECORDS SUMMARY | 2024-04-29 11:56 | XMS_ITS | Encounter Summary ---
Author Organization [facility] Address [address] [place] [address] Care Team Providers Care Valve Technician Name Role Phone Deep Zuleta MD Primary Care Provider [phone] Encounter Details Date Type Department Care Team (Late st Contact Info) Description 02/27/2018 Historical Results Only [facility] [place] [address] [place] [phone] Angeles Mejias MD [address] [place] [address] [place] [phone] Social History Tobacco Use Types Packs/Day Years [...] * T4 FREE (02/27/2018 10:05 EDT) FREE [address] 0.88 0.78 - 2.19 ng/dl 02/27/2018 12:19 EDT [facility] 02/27/2018 10:0 5 EDT 02/27/2018 10:06 EDT Angeles Mejias MD CHEMISTRY & BLOOD GA S ORDERABLES [facility] documented in this encounter Visit Diagnoses Not on filedocumented in this encounter Care Teams Valve Technician Relationship Specialty Start Date End Date Deep Zuleta MD [address] [place] [address] PCP - General 10/11/10 documented as of this encounter
--- OUTSIDE RECORDS SUMMARY | 2024-04-29 11:57 | XMS_ITS | Encounter Summary ---
Author Organization [facility] [place] [id number] Care Team Providers Care Weaver Hand Name Role Phone Aisha Kessler MD Primary Care Provider [phone] Reason for Visit * Consultation (Routine) - Closed Specialty Diagnoses / Procedures Referred By Lizbeth lauren Referred To Contact Endocrinology Diagnoses Graves disease Headache Second opinion - hyperthyroidism, graves disease, headaches Procedures Consult and treat Angeles Smith MD [address] [place] [phone] [facility] [address] [place] [phone] Referral ID Status Reason Start Date Expiration Date Visits Re quested Visits Authorized [id number] Closed 02/06/2018 02/06/2019 1 1 Encounter Details Date Type Department Care Team (Late st Contact Info) Description 04/25/2018 8:00 AM EDT Office [place] [address] Christopher Castañeda MD [facility] [place] [address] Graves disease; Celiac disease Social History Tobacco Use Types Packs/Day Years [...] Sign Reading Time Taken Comments Blood Pressure 119/76 04/25/2018 7:59 AM EDT Pulse 57 04/25/2018 7:59 AM EDT Temperature - - Respiratory Rate - - Oxygen Saturation - - Inhaled Oxygen Concentration - - Weight 70.4 kg (155 lb 4.8 oz) 04/25/2018 7:59 A M EDT Height 175.3 cm (5' 9) 04/25/2018 7:59 AM EDT Body Mass Index 22.93 04/25/2018 7:59 AM EDT documented in this encounter Progress Notes * Christopher Castañeda MD - 04/25/2018 8:00 AM EDT Dx in September- had palpitations and severe beck Seen in [facility] in [place]- elevated freeT4 (>3), TSI (> 2) and free t3 Has been treated , does not feel well On methimazole got headaches (never had them before) Fatigue improved but not entirely, some beck Sleeps poorly - uses ambien Can't fall asleep easily- chronic problem pre-dated Currently Occasional palpitations Mild beck on flat ground Weight is stable and at baseline Headaches are pressure in front - very intense, behind eyes Tried Zyrtec Most recent bloodwork on January 16 fT4 1.46, T3 182 Has an aunt and sister with thyroid disease No eye disease- no double vision- has seen opthamology PMH 1) graves disease 2) 3) not yet menopausal 4) celiac disease - by intestine biopsy- asymptomatic ??? methIMAzole (TAPAZOLE) 10 mg Tablet ??? TRINESSA, 28, 0.18/0.215/0.25 mg-35 mcg (28) Tablet ??? propranolol (INDERAL) 40 mg Tablet ??? ferrous sulfate 324 mg (65 mg iron) Tablet, Delayed Release (E.C.) ??? zolpidem (AMBIEN) 5 mg Tablet ??? 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 Pleasant calm healthy appearing woman Eyes: No proptosis On a base of 100, 12 mm each thyroid: Normal size and texture neck: Neuro: No tremor Recent Results (from the past 24 hour(s)) Vitamin D, 25-Hydroxy Result Value Ref Range 25-OH Vit D Total 47 30 - 100 ng/mL Iron and TIBC Result Value Ref Range Iron 52 30 - 150 mcg/dL TIBC 489 (H) 250 - 450 mcg/dL Iron Saturation 11 (L) 20 - 50 % Vitamin B12 Result Value Ref Range Vitamin B-12 747 232 - 1,245 pg/mL T4, free Result Value Ref Range Free T4 0.91 (L) 0.93 - 1.70 ng/dL T3 Total Result Value Ref Range T3, Total 120 75 - 170 ng/dL TSH Result Value Ref Range TSH 6.63 (H) 0.27 - 4.20 mlU/ML 1) Graves disease - currently overtreated on 20 mg a day of methimazole, will recommend switchgn to50 mg ptu bid and see if her headaches improve. Will need repeat T3/T4 after 1 month 2) Celiac disease - slight iron deficiency, normal B12 and vit D, so little evidence of general malabsorption. She should continue the iron supplement. 3) headaches - they sound like classic sinus healdaches but are temporally associated with startingmethimazole - will try to treat without methimazole for the next month, consider sinus films. documented in this encounter Plan of Treatment Not on file documented as of this encounter Procedures Procedure Name Priority Date/Time Associated Diagnosis Comments IRON AND TIBC Routine 04/25/2018 9:20 AM EDT Celiac disease VITAMIN D, 25-HYDROXY Routine 04/25/2018 9:20 AM EDT Celiac disease T3 TOTAL Routine 04/25/2018 9:20 AM EDT Graves disease TSH Routine 04/25/2018 9:20 AM EDT Graves disease T4, FREE Routine 04/25/2018 9:20 AM EDT Graves disease VITAMIN B12 Routine 04/25/2018 9:20 AM EDT Celiac disease documented in this encounter Results * Vitamin D, 25-Hydroxy (04/25/2018 9:20 AM EDT) Vitamin D Total 25 OH 47 30 - 100 ng/mL [facility] Comment: Deficient <10 ng/mL Insufficient 10 to 29 ng/mL Sufficient 30 to 100 ng/mL Potential Intoxication >100 ng/mL According to the [place] National Osteoporosis Foundation, Vitamin D concentrations >30 ng/mL are sufficient to protect bone health. ??The National Kidney Foundation has similarly stated that patients with Vitamin D concentrations <30ng/mL should be considered to be insufficient or deficient. http://ShapeUp/nkf-guidelines http://ShapeUp/nejm-VitD The [employer] i[employer] Vitamin D Immunoassay detects both 25-OH Vitamin D2 and 25-OH Vitamin D3, but only a total Vitamin D concentration is reported. Blood specimen (specimen) 04/25/2018 9:20 AM EDT 04/25/2018 10:48 AM EDT Narrative Resulting Agency Comment Spec In Lab Christopher Castañeda MD CHEMISTRY ORDERABLES [facility] [place] [address] * (ABNORMAL) Iron and TIBC (04/25/2018 9:20 AM EDT) Iron 52 30 - 150 mcg/dL [facility] TIBC 489(H) 250 - 450 mcg/dL [facility] Iron Saturation 11(L) 20 - 50 % [facility] Blood specimen (specimen) 04/25/2018 9:20 AM EDT 04/25/2018 9:29 AM EDT Narrative Resulting Agency Comment Spec In Lab Christopher Castañeda MD CHEMISTRY ORDERABLES [facility] [place] [address] * Vitamin B12 (04/25/2018 9:20 AM EDT) Vitamin B12 747 232 - 1,245 pg/mL [facility] Blood specimen (specimen) 04/25/2018 9:20 AM EDT 04/25/2018 9:28 AM EDT Narrative Resulting Agency Comment Spec In Lab Christopher Castañeda MD CHEMISTRY ORDERABLES Performing Organization Address City/[facility]/ZIP Co de Phone Number [facility] [place] [address] * (ABNORMAL) T4, free (04/25/2018 9:20 AM EDT) Free T4 0.91(L) 0.93 - 1.70 ng/dL [facility] Blood specimen (specimen) 04/25/2018 9:20 AM EDT 04/25/2018 9:29 AM EDT Narrative Resulting Agency Comment Spec In Lab Christopher Castañeda MD CHEMISTRY ORDERABLES Performing Organization Address City/[facility]/ZIP Co de Phone Number [facility] [place] [address] * T3 Total (04/25/2018 9:20 AM EDT) T3 Total 120 75 - 170 ng/dL [facility] Blood specimen (specimen) 04/25/2018 9:20 AM EDT 04/25/2018 9:29 AM EDT Narrative Resulting Agency Comment Spec In Lab Christopher Castañeda MD CHEMISTRY ORDERABLES [facility] [place] [address] * (ABNORMAL) TSH (04/25/2018 9:20 AM EDT) Thyroid Stimulating Hormone 6.63(H) 0.27 - 4.20 mlU/ML [facility] Blood specimen (specimen) 04/25/2018 9:20 AM EDT 04/25/2018 9:29 AM EDT Narrative Resulting Agency Comment Spec In Lab Christopher Castañeda MD CHEMISTRY ORDERABLES [facility] [place] [address] documented in this encounter Visit Diagnoses Diagnosis Graves disease Toxic diffuse goiter without mention of thyrotoxic crisis or storm Celiac disease documented in this encounter Care Teams Weaver Hand Relationship Specialty Start Date End Date Aisha Kessler MD [address] [place] [address] PCP - General Family Medicine 10/20/17 documented as of this encounter
--- OUTSIDE RECORDS SUMMARY | 2024-04-29 11:57 | XMS_ITS | Encounter Summary ---
[place] [address] Care Team Providers Care Sewage Reticulation Drafting Officer Name Role Phone Aisha Kessler MD Primary Care Provider [phone] Encounter Details Date Type Department Care Team (Late st Contact Info) Description 05/16/2018 Telephone [place] [phone] Citlaly Jones LPN Social History Tobacco Use Types Packs/Day Years [...] encounter Miscellaneous Notes * Telephone Encounter - Citlaly Jones LPN - 05/16/2018 1:26 PM EST Date edited: 05/16/18 [id number] Татьяна Geller 47 y.o. Preferred Most recent note assessment/plan: From 04/25/18 office note 1) Graves disease - currently overtreated on 20 mg a day of methimazole, will recommend switching to 50 mg ptu bid, and see if her headaches improve. Will need repeat T3/T4 after 1 month Reason for call: Patient called, stating that her Methimazole is running out on Monday, 11/26. She is requesting a refill, but I noted your office note above that she was overtreated. Patient neverdid fill PTU script, as she did not want to begin two medications at the same time. What action is needed: Advise, and I will get back to patient. Citlaly Jones LPN documented in this encounter Plan of Treatment Not on file documented as of this encounter Visit Diagnoses Not on filedocumented in this encounter Care Teams Sewage Reticulation Drafting Officer Relationship Specialty Start Date End Date Aisha Kessler MD [address] [place] [address] PCP - General Family Medicine 10/20/17 documented as of this encounter
--- OUTSIDE RECORDS SUMMARY | 2024-04-29 11:57 | XMS_ITS | Encounter Summary ---
[place] [address] Care Team Providers Care Lettuce Trimmer Name Role Phone Morgan Linares MD Primary Care Provider [phone] Encounter Details Date Type Department Care Team (Late st Contact Info) Description 04/15/2015 Tele[place] [phone] Candy Benavidez RN Social History Tobacco Use Types Packs/Day Years Used Date Smoking Tobacco: Never Alcohol Use Standard Drinks/Week Comments No 0 (1 standard drink = 0.6 oz pur e alcohol) Sex and Gender Information Value Date Recorded Sex Assigned at Not on file Gender Identity Not on file Sexual Orientation Not on file documented as of this encounter Miscellaneous Notes * Telephone Encounter - Candy Benavidez RN - 04/15/2015 3:44 PM EDT Call placed to Татьяна re: below, per Dr. Henson: Can we get her in for a colonoscopy for diarrhea, refractory celiac and rule out microscopic colitis. Also should get labs (TTG, CRP, ESR, CMP, CBC). Could be done here or locally. She is agreeable. She will get labs at [facility], order to be faxed. * Telephone Encounter - Candy Benavidez RN - 04/15/2015 1:03 PM EDT Татьяна calls with concerns and feels as though she needs to be tested for Crohn's Disease. She is complaining of episodes of liquid diarrhea 30 minutes to 1 hour after eating with urgency. This typically happens after the evening meal. When she has these episodes she get abdominal cramping and a stabbing pain in her abdomen.. She denies blood in stool or any other symptoms. She does have a brother that has been diagnosed with Crohns. She has been faithfully following a gluten free diet since January. Will discuss with Dr. Henson documented in this encounter Plan of Treatment Not on file documented as of this encounter Visit Diagnoses Not on filedocumented in this encounter Care Teams Lettuce Trimmer Relationship Specialty Start Date End Date Morgan Linares MD [address] [place] [address] PCP - General 09/24/14 10/19/17 documented as of this encounter
--- OUTSIDE RECORDS SUMMARY | 2024-04-29 11:57 | XMS_ITS | Encounter Summary ---
Author Organization Formerly [facility] [place] [address] Care Team Providers Care Community Assistant Name Role Phone Aisha Kessler MD Primary Care Provider [phone] Encounter Details Date Type Department Care Team (Late st Contact Info) Description 11/02/2019 Ancillary Procedure Radiology Library [place] [address] Juwan Earl APRN [facility] [place] [address] Social History Tobacco Use Types Packs/Day Years [...] Associated Diagnosis Comments FILM LIBRARY STORAGE ONLY DX SPINE Routine 11/02/2019 12:00 AM EDT documented in this encounter Results * Film Library- Storage Only DX Spine (11/02/2019 12:00 AM EDT) Narrative [facility] - 11/12/2019 2:15 PM EDT This exam is auto-finalizing. It's purpose is for storage only. Juwan Earl APRN IMG FILM LIBRARY ORDERABLES Performing Organization Address City/State/[facility] Co de Phone Number [place], [place] documented in this encounter Visit Diagnoses Not on filedocumented in this encounter Care Teams Community Assistant Relationship Specialty Start Date End Date Aisha Kessler MD [address] [place] [address] PCP - General Family Medicine 10/20/17 documented as of this encounter
--- OUTSIDE RECORDS SUMMARY | 2024-04-29 11:57 | XMS_ITS | Encounter Summary ---
[place] [address] Care Team Providers Care Ecg Technician Name Role Phone Aisha Kessler MD Primary Care Provider [phone] Encounter Details Date Type Department Care Team (Late st Contact Info) Description 10/23/2017 4:40 PM EDT Interpretation Only [facility] [address] [place] [id number] Gauatm Kwok Jr., MD [address] [place], [place] [id number] Pedal edema; Tachycardia Social History Tobacco Use Types Packs/Day Years [...] Procedure Name Priority Date/Time Associated Diagnosis Comments ECHO SCAN (SCAN) 10/24/2017 12:0 0 AM EDT documented in this encounter Results * SCAN DOC: ECHO (10/24/2017 12:00 AM EDT) Anatomical Region Laterality Modality Cardiac Other Narrative 10/24/2017 12:00 AM EDT Ordered by an unspecified provider. Scanning Provider MEDIA MGR SCAN EXT O RDR/RSLT documented in this encounter Visit Diagnoses Diagnosis Pedal edema Edema Tachycardia Tachycardia, unspecified documented in this encounter Care Teams Ecg Technician Relationship Specialty Start Date End Date Aisha Kessler MD [address] [place] [address] PCP - General Family Medicine 10/20/17 documented as of this encounter
--- OUTSIDE RECORDS SUMMARY | 2024-04-29 11:57 | XMS_ITS | Encounter Summary ---
Author Organization [facility] [place] [address] Care Team Providers Care Papeterie Table Assembler Name Role Phone Morgan Linares MD Primary Care Provider [phone] Encounter Details Date Type Department Care Team (Late st Contact Info) Description 04/15/2015 Orders [place] [address] Chris Henson MD [facility] [place] [address] Diarrhea (Primary Dx); CD (celiac disease) Social History Tobacco Use Types Packs/Day Years [...] as of this encounter Visit Diagnoses Diagnosis Diarrhea- Primary CD (celiac disease) Celiac disease documented in this encounter Care Teams Papeterie Table Assembler Relationship Specialty Start Date End Date Morgan Linares MD [address] [place], [place] [address] PCP - General 09/24/14 10/19/17 documented as of this encounter
--- OUTSIDE RECORDS SUMMARY | 2024-04-29 11:57 | XMS_ITS | Encounter Summary ---
Author [facility] [place] [address] Care Team Providers Care Chip Mixer Name Role Phone Aisha Kessler MD Primary Care Provider [phone] Encounter Details Date Type Department Care Team (Late st Contact Info) Description 04/28/2018 Orders [place] [address] Christopher Castañeda MD [facility] [place] [address] Graves disease Social History Tobacco Use Types Packs/Day Years Used Date Smoking Tobacco: Never Smokeless Tobacco: Never Alcohol Use Standard Drinks/Week Comments No 0 (1 standard drink = 0.6 oz pur e alcohol) Sex and Gender Information Value Date Recorded Sex Assigned at Not on file Gender Identity Not on file Sexual Orientation Not on file documented as of this encounter Plan of Treatment Scheduled Orders Name Type Priority Associated Diagnoses Orde r Schedule TSH Lab Routine Graves disease Expected: 07/28/2018 (Approximate), Expires: 01/27/2019 T4, free Lab Routine Graves disease Expected: 07/28/2018 (Approximate), Expires: 01/27/2019 documented as of this encounter Results * T4, free (10/17/2018 4:22 PM EDT) Free T4 0.96 0.93 - 1.70 ng/dL [facility] Blood specimen (specimen) 10/17/2018 4:22 PM EDT 10/17/2018 4:31 PM EDT Narrative Resulting Agency Comment Spec In Lab Christopher Castañeda MD CHEMISTRY ORDERABLES Performing Organization Address City/[facility]/ZIP Co de Phone Number [facility] [place] [address] * (ABNORMAL) TSH (10/17/2018 4:22 PM EDT) Thyroid Stimulating Hormone 6.17(H) 0.27 - 4.20 mcIU/mL [facility] Blood specimen (specimen) 10/17/2018 4:22 PM EDT 10/17/2018 4:31 PM EDT Narrative Resulting Agency Comment Spec In Lab Christopher Castañeda MD CHEMISTRY ORDERABLES Performing Organization Address [facility]/ZIP Co de Phone Number [facility] [place] [address] documented in this encounter Visit Diagnoses Diagnosis Graves disease Toxic diffuse goiter without mention of thyrotoxic crisis or storm documented in this encounter Care Teams Chip Mixer Relationship Specialty Start Date End Date Aisha Kessler MD [address] [place] [address] PCP - General Family Medicine 10/20/17 documented as of this encounter
--- OUTSIDE RECORDS SUMMARY | 2024-04-29 11:57 | XMS_ITS | Encounter Summary ---
Author Organization [facility] [place] [address] Care Team Providers Care Java Swing Developer Name Role Phone Aisha Kessler MD Primary Care Provider [phone] Encounter Details Date Type Department Care Team (Late st Contact Info) Description 05/22/2018 Orders [place] [address] Christopher Castañeda MD [facility] [place] [address] Graves disease Social History Tobacco Use Types [...] as of this encounter Visit Diagnoses Diagnosis Graves disease Toxic diffuse goiter without mention of thyrotoxic crisis or storm documented in this encounter Care Teams Java Swing Developer Relationship Specialty Start Date End Date Aisha Kessler MD [address] [place] [address] PCP - General Family Medicine 10/20/17 documented as of this encounter
--- OUTSIDE RECORDS SUMMARY | 2024-04-29 11:57 | XMS_ITS | Encounter Summary ---
Author Organization [facility] [place] [address] Care Team Providers Care Cutter Inspector Name Role Phone Morgan Linares MD Primary Care Provider [phone] Reason for Referral * Physical Therapy (Routine) - Closed Specialty Diagnoses / Procedures Referred By Contac t Referred To Contact Physical Therapy Diagnoses Chronic midline low back pain without sciatica Jacinto Talbert MD [facility] [place] [address] [facility] [place] [address] Referral ID Status Reason Start Date Expiration Date V isits Requested Visits Authorized [id number] Closed Evaluate and Treat 06/07/2016 06/07/2017 3 3 Reason for Visit * Reason Comments Back Pain lower left side Left Leg Pain wraps around to fron t of groin and into upper front of thigh * Consultation (Routine) - Closed Specialty Diagnoses / Procedures Referred By Contac t Referred To Contact Orthopaedics Diagnoses low back pain Aisha Kessler MD [address] [place] [address] [facility] [place] [address] [address] Referral ID Status Reason Start Date Expiration Date V isits Requested Visits Authorized [id number] Closed Consult, Test & Treat [facility] 08/13/2015 08/12/2016 1 1 Encounter Details Date Type Department Care Team (Late st Contact Info) Description 06/07/2016 1:40 PM EST Office [place] [address] Jacinto Talbert MD [facility] [address] Chronic midline low back pain without sciatica Social History Tobacco Use Types Packs/Day Years [...] Sign Reading Time Taken Comments Blood Pressure 119/64 06/07/2016 1:31 PM EST Pulse - - Temperature - - Respiratory Rate - - Oxygen Saturation - - Inhaled Oxygen Concentration - - Weight 68 kg (150 lb) 06/07/2016 1:31 PM EST Height 175.3 cm (5' 9) 06/07/2016 1:31 PM EST Body Mass Index 22.15 06/07/2016 1:31 PM EST documented in this encounter Progress Notes * Jacinto Talbert MD - 06/07/2016 1:40 PM EST CHIEF COMPLAINT: Chronic low back pain. SUBJECTIVE: This problem began without specific injury or incident over a year ago and consists of mechanical lumbosacral pain. At times, she may have some slight discomfort radiating over the left anterior thigh, but otherwise she does not really have any radicular pain, power or sensory loss, and no bowel or bladder control problems reported. She has a very mechanical pattern of pain, mostly flexion aggravated, as in prolonged sitting or standing with a forward lean such as wrapping presents on a table. She also can get a catch sensation when she is moving about, lying on a couch. She has had 2 different trials of respiratory care faculty without benefit for this problem. No imaging to date. She feels her general health is otherwise quite stable. 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 She does have a daily home exercise program, however, where the back pain is not an issue. OBJECTIVE: Her affect is bright, and speech is in good time and to the point. She stands without evidence of spinal deformity. Her trunk flexibility through the waist while standing includes 20 degrees extension and even with coupled side flexions and with forward flexion at 70 degrees, there is no production of her chief complaint and certainly no leg symptoms. Femoral stretch sign is negative. Her touch sensation is accurate in the lower extremities, and there is no power loss in lower extremity screen. Her knee jerks are trace bilaterally with recruitment, and then her ankle jerks are 1+. There is no relevant imaging to review. ASSESSMENT: There is now a longstanding pattern of very mechanical lower back pain, fortunately with no fixed radicular or any spinal cord complications. Under these circumstances, this is a counseling-based visit for 25 of the 45-minute encounter talking about her options in terms of mechanical diagnosis and treatment using a repeated movements examination, and the benefits of this approach as opposed to further imaging and consideration of more invasive approaches. I think she has a reasonably good basic understanding of this, and we eventually decided to proceed as follows. PLAN: She is going to read through the first half of the book, Treat Your Own Back, and return for a mechanical diagnosis and treatment with the [facility] staff. documented in this encounter Plan of Treatment Scheduled Referrals Name Type Priority Associated Diagnoses Orde r Schedule Referral to Physical Therapy Outpatient Referral Routine Chronic Midline Low Back Pain Without Sciatica Ordered: 06/07/2016 documented as of this encounter Visit Diagnoses Diagnosis Chronic midline low back pain without sciatica documented in this encounter Care Teams Cutter Inspector Relationship Specialty Start Date End Date Morgan Linares MD [address] [place] [address] PCP - General 09/24/14 10/19/17 documented as of this encounter
--- OUTSIDE RECORDS SUMMARY | 2024-04-29 11:57 | XMS_ITS | Encounter Summary ---
[place] [address] Care Team Providers Care Authorization Manager Name Role Phone Aisha Kessler MD Primary Care Provider [phone] Encounter Details Date Type Department Care Team (Late st Contact Info) Description 05/16/2018 Orders [place] [address] Citlaly Jones, RALPH Social History Tobacco Use Types Packs/Day Years [...] on filedocumented in this encounter Care Teams Authorization Manager Relationship Specialty Start Date End Date Aisha Kessler MD [address] [place] [address] PCP - General Family Medicine 10/20/17 documented as of this encounter
--- OUTSIDE RECORDS SUMMARY | 2024-04-29 11:57 | XMS_ITS | Encounter Summary ---
Author Organization [facility] [place] [address] Care Team Providers Care Burr Grinder Name Role Phone Morgan Linares MD Primary Care Provider [phone] Encounter Details Date Type Department Care Team (Late st Contact Info) Description 09/25/2014 9:00 AM EDT - 09/25/2014 9:30 AM EDT Surgery [place] [address] Sandrine Henson MD [facility] [place] [address] EGD WITH BIOPSY (WRVU 2.39) Social History Tobacco Use Types Packs/Day Years [...] Sign Reading Time Taken Comments Blood Pressure 109/73 09/25/2014 9:45 AM EDT Pulse 65 09/25/2014 9:45 AM EDT Temperature - - Respiratory Rate 16 09/25/2014 9:45 AM EDT Oxygen Saturation 96% 09/25/2014 9:45 AM EDT Inhaled Oxygen Concentration - - Weight 68 kg (150 lb) 09/25/2014 8:52 AM EDT Height 175.3 cm (5' 9) 09/25/2014 8:52 AM EDT Body Mass Index 22.15 09/25/2014 8:52 AM EDT documented in this encounter Discharge Instructions * Discharge Instructions* Aisha Christopher RN - 09/25/2014 9:48 AM EDT UPPER GI ENDOSCOPY WHAT TO EXPECT AFTER THE PROCEDURE After the test you may feel a little more gassy or bloated than usual, this is normal. ACTIVITY Because of the sedation that you received Your judgement and reaction time are affected ?? Go home and rest quietly for the remainder of the day. You may resume your normal activities tomorrow. ?? Change from one position to the next slowly. You may lose your balance unexpectedly Be careful on stairs, as you may be unsteady on your feet. FOR THE NEXT 24 HRS ?? DO NOT DRIVE OR OPERATE ANY MACHINERY ?? DO NOT DRINK ALCOHOLIC BEVERAGES ?? DO NOT SIGN LEGAL DOCUMENTS ?? If you are a smoker: DO NOT SMOKE WHILE YOU ARE ALONE Diet ?? Start by eating small portions of foods that ordinarily will not upset your stomach. Be gentle with what you choose to start with. ?? Drink plenty of fluids ( unless otherwise told not to) Medications You may have a mild sore throat. Ice chips, popsicles, over the counter throat lozenges or spray may help numb your throat. This procedure should not cause a fever. IV SITE-- slight redness or tenderness is normal, you can use warm compresses if you get concerned.If the tenderness +/or redness increases or foul drainage and a red streak occurs, please contact your PCP immediately. WHEN SHOULD YOU CALL FOR HELP? Call 911 anytime you think that you need emergency care. For example, call if: You passed out (lost consciousness). You cough up blood. You vomit blood or what looks like coffee grounds. You pass maroon or very bloody stools. Call your healthcare provider or seek immediate medical attention if: You have trouble swallowing. You have belly pain. Your stools are black or tarlike or have streaks of blood. You are sick to your stomach or cannot keep fluids down. Watch closely for changes in your health, and be sure to contact your doctor IF Your throat still hurts after a day or two You do not get better as expected. Monday-Monday Clinic [phone] 8a-5p Same Day Endo [phone] 7a-8p Otherwise contact [phone] and ask to speak to the manager mac rodent control worker Follow-up care is a juárez part of your treatment and safety. Be sure to make and go to all appointments, and call your doctor if you are having problems. Instructions have been reviewed and patient expresses understanding You may have received medication before and /or during your procedure which effects judgement and reaction time. Do not drive, operate machinery , drink alcoholic beverages, or make important decisions for 24 hours. Be careful on stairs, as you may be unsteady on your feet. You may eat a regular diet as tolerated. Do not smoke if you are alone. IV site---slight redness or tenderness is normal. You may use a warm compress. If tenderness and redness increases of foul drainage occurs please contact your MD. documented in this encounter Medications at Time of Discharge Medication Sig Dispensed Refills Start Date End Date ferrous sulfate 324 mg (65 mg iron) Tablet, Delayed Release (E.C.) Take 324 mg by mouth daily. zolpidem (AMBIEN) 5 mg Tablet Take 5 mg by mouth nightly as needed for Sleep. documented as of this encounter Progress Notes * Pa Rodriguez RN - 09/24/2014 2:35 PM EDT Endoscopy Pre-Procedure Patient Call Name: Abner Geller Age: 43 y.o. Date of : 1970 (home) Mobile: No relevant phone numbers on file. Date/Time of call: September 24, 2014/2:35 PM/ Procedure: EGD Call attempted - unable to contact patient Message left on answering machine: yes * Pa Rodriguez RN - 09/22/2014 9:32 AM EDT ENDOSCOPY PATIENT HISTORY Name: ABNER GELLER : 1970 Age: 43 y.o. [address]: [address] [place] [id number] (home) [phone] (work) Mobile: No relevant phone numbers on file. Referring Provider: Deep Zuleta Referral Procedure: EGD - chronic anemia , family history of celiac disease Allergies: No Known Allergies Problem list: Patient Active Problem List Diagnosis Code ??? Anemia 285.9 Past Medical History: Past Medical History Diagnosis Date ??? Anemia Past Surgical History: Past Surgical History Procedure Laterality Date ??? Tubal ligation ??? Mandible surgery Medications: Prior to Admission medications Medication Sig Start Date End Date Taking? Authorizing Provider ferrous sulfate 324 mg (65 mg iron) Tablet, Delayed Release (E.C.) Take 324 mg by mouth. Provider, Historical zolpidem (AMBIEN) 5 mg Tablet Take 5 mg by mouth nightly as needed for Sleep. Provider, Historical documented in this encounter H&P Notes * Sandrine Henson MD - 09/25/2014 9:00 AM EDT Patient Name: Abner Geller Patient Age: 43 y.o. Birthdate: 1970 Admit date: 09/25/2014 Attending Physician: Sandrine Henson MD Gastroenterology & Hepatology Pre-Procedure History and Physical Planned Procedure: EGD: Indication: celiac disease, positive serology Patient Active Problem List Diagnosis Code ??? Anemia 285.9 Medications: Reviewed in EDH No Known Allergies Social History/Family History: Reviewed in EDH. No changes Exam: Filed Vitals: 09/25/14 0930 BP: 114/67 Pulse: 58 Resp: 12 GEN: NAD, AAOX3 HEENT: NC/AT dryMM, anicteric Chest: CTAB Heart: RRR, nl s1, s2 Abdomen: normal bowel sounds, soft, non tender Assessment and Plan: Proceed with EGD: ASA Grade: ASA 1 - Normal health patient Mallampati: I (soft palate, uvula, fauces, tonsillar pillars visible) Sedation plan: Moderate Conscious sedation Risks and benefits of the procedure were discussed with the patient. Consent has been signed. documented in this encounter Plan of Treatment Not on file documented as of this encounter Procedures Procedure Name Priority Date/Time Associated Diagnosis Comments SURGICAL PATHOLOGY REPORT Routine 09/25/2014 9:43 AM EDT SPECIMEN TO PATHOLOGY Routine 09/25/2014 9:43 AM EDT EGD WITH BIOPSY (WRVU 2.39) 09/25/2014 9:16 AM EDT Hair loss Anemia, unspecified anemia type UPPER GI ENDOSCOPY Routine 09/25/2014 9: 08 AM EDT documented in this encounter Results * Surgical Pathology Report (09/25/2014 9:43 AM EDT) Final Diagnosis ? [facility] ? Provider: ?? SANDRINE HENSON ??Pt. Name: ?? ANNEMARIELEBRON ABNER R ?Y ? Acc #: ?[id number] ?Pt. ? Col Date: ?? 09/25/2014 ?/Sex: ?1970,(43 years),Female ? Rec Date: ?? 09/25/2014 ?LOC: ?4T ? SURGICAL PATHOLOGY ? ---Pathologic Diagnosis--- ? Duodenum, biopsy: ?Small intestinal mucosa with total villous blunting, compatible with ? celiac disease. ? CR-0 ? 09/26/14 ? BJM ? 09/26/14 Verified by: ? Anoop Marie MD ? Pathologist ? (Electronic Signature) ? The attending pathologist whose signature appears on this report has ? reviewed all diagnostic slides and has edited the gross and/or ? microscopic portion of the report in rendering the final pathologic ? diagnosis. ? ---Gross Description--- ? A - Labeled/Fixativ e: Abnormal duodenal mucosa with blunting and ? scalloping, erythema and bulb, formalin. ? Quantity/Size: Multiple, 0.2-0.3 cm. ? Tissue Description: Soft, martinez-pink tissue. ? Sections/Proces sing: (T2) ??pps ? ---Clinical Information--- ? Specimen Submitted: ? A - Abnormal duodenal mucosa with blunting and scallpoing, erythema in bulb ? Clinical History: ? Anemia and positive celiac serologies ? Clinical Diagnosis: ? Anemia and positive celiac serologies 09/26/2014 5:01 PM EDT [facility] GI Biopsy 09/25/2014 9:43 AM EDT 09/25/2014 9:43 AM EDT Sandrine Henson MD PATHOLOGY/CYTOLOG Y ORDERABLES Performing Organization Address City/State/[facility] Co de Phone Number [facility] [address] * Specimen to Pathology (surgical or derm) (09/25/2014 9:43 AM EDT) AP Specimen 09/25/2014 9:43 AM EDT 09/25/2014 9:43 AM EDT Narrative [facility] - 09/25/2014 9:43 AM EDT Specimen requisition ordered. ??Separate Pathology report to follow Sandrine Henson MD PATHOLOGY/CYTOLOG Y ORDERABLES [facility] * UPPER GI ENDOSCOPY (09/25/2014 9:08 AM EDT) UPPER GI ENDOSCOPY [facility] Endoscopy Patient Name: Abner Geller ? Procedure Date: 09/25/2014 9:08 AM ? N: [id number] ? Date of : 1970 ? Age: 43 ? Order #: [id number] ? Procedure: ? Upper GI endoscopy Indications: ? Iron deficiency anemia, Positive ? celiac serologies Providers: ? Rubens Yang, ONUR, ? Fiorella Diggs MD: ?Deep Zuleta MD Medicines: ? Midazolam 5 mg IV, Fentanyl 150 ? micrograms IV, Benzocaine spray Complications: ? No immediate complications. Procedure: ? Pre-Anesthesia Assessment: ? - Prior to the procedure, a History ? and Physical was performed, and ? patient medications and allergies ? were reviewed. The patient is ? competent. The risks and benefits of ? the procedure and the sedation ? options and risks were discussed with ? the patient. All questions were ? answered and informed consent was ? obtained. Patient identification and ? proposed procedure were verified by ? the physician, the nurse and the ? radiation technician in the pre-procedure area ? in the procedure room. Mental Status ? Examination: normal. Airway ? Examination: normal oropharyngeal ? airway and neck mobility. Respiratory ? Examination: clear to auscultation. ? CV Examination: normal. Prophylactic ? Antibiotics: The patient does not ? require prophylactic antibiotics. ? Prior Anticoagulants: The patient has ? taken no previous anticoagulant or ? antiplatelet agents. ASA Grade ? Assessment: I - A normal, healthy ? patient. After reviewing the risks ? and benefits, the patient was deemed ? in satisfactory condition to undergo ? the procedure. The anesthesia plan ? was to use moderate sedation / ? analgesia (conscious sedation). ? Immediately prior to administration ? of medications, the patient was ? re-assessed for adequacy to receive ? sedatives. The heart rate, ? respiratory rate, oxygen saturations, ? blood pressure, adequacy of pulmonary ? ventilation, and response to care ? were monitored throughout the ? procedure. The physical status of the ? patient was re-assessed after the ? procedure. ? The procedure, indications, benefits, ? risks and alternatives were explained ? to the patient. Specifically ? discussed were potential ? complications including, but not ? limited to, bleeding, perforation, ? infection, missing a cancer, and ? adverse medication reactions. The ? Endoscope was introduced through the ? mouth, and advanced to the third part ? of duodenum. The patient tolerated ? the procedure well. The upper GI ? endoscopy was somewhat difficult due ? to ineffective sedation. Successful ? completion of the procedure was aided ? by increasing the dose of sedation ? medication. The patient tolerated the ? procedure fairly well. ? Findings: ? The examined esophagus was normal. ? The Z-line was regular and was found 40 cm from the ? incisors. ? The entire examined stomach was normal. ? Diffuse moderately erythematous mucosa without active ? bleeding and with no stigmata of bleeding was found ? in the duodenal bulb. Biopsies for histology were ? taken with a cold forceps for for evaluation of ? celiac disease. ? Diffuse mucosal flattening was found in the duodenal ? bulb. Biopsies for histology were taken with a cold ? forceps for for evaluation of celiac disease. ? Estimated blood loss was minimal. ? Impression: ?- Normal esophagus. ? - Z-line regular, 40 cm from the ? incisors. ? - Normal stomach. ? - Erythematous duodenopathy. Biopsied. ? - Flattened mucosa was found in the ? duodenum, consistent with celiac ? disease. Biopsied. Recommendation: ?- Discharge patient to home. ? - Await pathology results. ? - Gluten free diet for the rest of ? the patient's life. ? - Return to my office at appointment ? to be scheduled. ? Attending Participation: ? I personally performed the entire procedure. ? _ Sandrine Henson, 09/25/2014 10:01 AM Number of Addenda: 0 Note Initiated On: 09/25/2014 9:08 AM PROVATION 09/25/2014 9:08 AM EDT Deep Zuleta MD GENERAL SURGICA L ORDERABLES PROVATION documented in this encounter Visit Diagnoses Diagnosis Hair loss Alopecia, unspecified Anemia, unspecified anemia type documented in this encounter Administered Medications Inactive Administered Medications - up to 3 most recent administrations Medication Order MAR Action Action Date Dose Rate Site fentaNYL 50 mcg/mL multi-dose injection ONCE PRN, Starting on Luci 09/25/14 at 0922, Until Luci 09/25/14 at 1754, Intra-Operative (Intra-Procedure), Routine Given 09/25/2014 9:30 AM EDT 50 mcg Given 09/25/2014 9:26 AM EDT 50 mcg Given 09/25/2014 9:22 AM EDT 50 mcg lactated ringers infusion 100 mL/hr, Intravenous, CONTINUOUS, Starting on Luci 09/25/14 at 0900, Until Luci 15 at 1754, Endoscopy (Day of Procedure) New Bag 09/25/2014 9:00 AM EDT 100 mL/hr 100 mL/hr midazolam (PF) (VERSED) 1 mg/mL multi-dose injection ONCE PRN, Starting on Luci 09/25/14 at 0922, Until Luci 09/25/14 at 1754, Intra-Operative (Intra-Procedure), Routine Given 09/25/2014 9:34 AM EDT 1 mg Given 09/25/2014 9:30 AM EDT 1 mg Given 09/25/2014 9:26 AM EDT 1 mg documented in this encounter Active and Recently Administered Medications Times are shown in EDT. Continuous Medication Order 09/23/2014 09/24/2014 09/25/2014 lactated ringers infusion (CANCELED) 100 mL/hr, Intravenous, CONTINUOUS, Starting on Luci 09/25/14 at 0900, Until Luci 09/25/14 at 1754, Endoscopy (Day of Procedure) 0900 (New Bag - Prov ider: Fely Aguilera, ONUR) PRN Medication Order 09/23/2014 09/24/2014 09/25/2014 fentaNYL 50 mcg/mL multi-dose injection (CANCELED) ONCE PRN, Starting on Luci 09/25/14 at 0922, Until Luci 09/25/14 at 1754, Intra-Operative (Intra-Procedure), Routine 09 (Given - Provid er: Rubens Moon RN)09 (Given - Provider: Rubens Moon RN)0930 (Given - Provider: Rubens Moon RN) midazolam (PF) (VERSED) 1 mg/mL multi-dose injection (CANCELED) ONCE PRN, Starting on Luci 09/25/14 at 0922, Until Luci 09/25/14 at 1754, Intra-Operative (Intra-Procedure), Routine 09 (Given - Provid er: Rubens Moon RN)09 (Given - Provider: Rubens Moon RN)0930 (Given - Provider: Rubens Moon RN)0934 (Given - Provider: Rubens Moon RN) documented in this encounter Care Teams Burr Grinder Relationship Specialty Start Date End Date Morgan Linares MD [address] [place] [address] PCP - General 09/24/14 10/19/17 documented as of this encounter
--- OUTSIDE RECORDS SUMMARY | 2024-04-29 11:57 | XMS_ITS | Encounter Summary ---
Author Organization [facility], Located Within [facility] [place] [address] Care Team Providers Care Counterperson Name Role Phone Aisha Kessler MD Primary Care Provider [phone] Encounter Details Date Type Department Care Team (Late st Contact Info) Description 10/17/2018 3:30 PM EDT Office Visit [place] [address] Christopher Castañeda MD [facility] [place] [address] Graves disease; Celiac disease Social History Tobacco [...] Sign Reading Time Taken Comments Blood Pressure 141/79 10/17/2018 3:35 PM EDT Pulse 68 10/17/2018 3:35 PM EDT Temperature - - Respiratory Rate - - Oxygen Saturation - - Inhaled Oxygen Concentration - - Weight 74.3 kg (163 lb 12.8 oz) 10/17/2018 3:35 PM EDT Height 172.7 cm (5' 8) 10/17/2018 3:35 PM EDT Body Mass Index 24.91 10/17/2018 3:35 PM EDT documented in this encounter Progress Notes * Christopher Castañeda MD - 10/17/2018 3:30 PM EDT We are seeing this 48 year old woman for Graves disease From March 2018 1) Graves disease - currently overtreated on [...] methimazole for the next month, consider sinus films Feeling better On initial treatment, did not feel well On methimazole got headaches- have stopped Fatigue improved , feeling better overall; Still occasional palpitations (has stopped propranolol) Can last a while , can get short of breath < 1 x a month Sleeps poorly - uses ambien No further beck Has gained some weight Taking 15 mg a day of methimazole Has an aunt and sister with thyroid disease \\ ??? methIMAzole (TAPAZOLE) 10 mg Tablet ??? TRINESSA, 28, 0.18/0.215/0.25 mg-35 mcg (28) Tablet ??? HYDROCODONE/ACETAMINOPHEN (VICODIN ORAL) ??? ferrous sulfate 324 mg (65 mg iron) Tablet, Delayed Release (E.C.) ??? zolpidem (AMBIEN) 5 mg Tablet BP 141/79 Pulse 68 Ht 172.7 cm (5' 8) Wt 74.3 kg (163 lb 12.8 oz) BMI 24.91 kg/m?? Pleasant calm healthy appearing woman Eyes: No proptosis On a base of 100, 12 mm each thyroid: Normal size and texture neck: Neuro: No tremor Recent Results (from the past 24 hour(s)) T4, free Result Value Ref Range Free T4 0.96 0.93 - 1.70 ng/dL TSH Result Value Ref Range TSH 6.17 (H) 0.27 - 4.20 mcIU/mL Hemogram Result Value Ref Range WBC 8.2 4.0 - 9.5 x10(3)/mcL RBC 4.68 4.00 - 5.21 x10(6)/mcL Hemoglobin 12.6 11.7 - 15.5 gm/dL Hematocrit 40.8 35.7 - 45.8 % MCV 87.2 82.6 - 94.4 fL MCH 26.9 (L) 27.1 - 32.0 pg MCHC 30.9 (L) 31.7 - 35.0 gm/dL Platelets 274 145 - 357 x10(3)/mcL RDWSD 51.3 (H) 37.0 - 46.0 fL RDWCV 16.1 (H) 11.5 - 14.1 % MPV 11.1 7.6 - 12.9 fL nRBC % Auto 0.0 % nRBC Abs Auto 0.000 0.000 - 0.000 x10(3)/mcL Iron and TIBC Result Value Ref Range Iron 34 30 - 150 mcg/dL TIBC 487 (H) 250 - 450 mcg/dL Iron Saturation 7 (L) 20 - 50 % 1) Graves disease - overtreated - braulio lrecommend cutting methimazole in half, should help to block further weight gain 2) chronic iron deficiency - iron saturation is very low, not anemic but MCH is low- will advise totake iron supplement 3) migraines - advised her to consider amitriptyline 25 mg at bedtime to improve sleep, avoid ambien and possibly reduce the incidence of regular ocular scotomata. Also advised her to see neurologistif they persist. Ocular migraines ?elevil - write documented in this encounter Plan of Treatment Scheduled Orders Name Type Priority Associated Diagnoses Orde r Schedule TSH Lab Routine Graves disease Expected: 10/17/2018 (Approximate), Expires: 04/18/2019 T4, free Lab Routine Graves disease Expected: 10/17/2018 (Approximate), Expires: 04/18/2019 documented as of this encounter Procedures Procedure Name Priority Date/Time Associated Diagnosis Comments HEMOGRAM Routine 10/17/2018 4:22 PM EDT Celiac disease IRON AND TIBC Routine 10/17/2018 4:22 PM EDT Celiac disease VITAMIN D, 25-HYDROXY Routine 10/17/2018 4:22 PM EDT Celiac disease TSH Routine 10/17/2018 4:22 PM EDT Graves disease T4, FREE Routine 10/17/2018 4:22 PM EDT Graves disease documented in this encounter Results * T4, free (07/29/2019 4:09 PM EST) Free T4 1.29 0.93 - 1.70 ng/dL [facility] Blood specimen (specimen) 07/29/2019 4:09 PM EST 07/29/2019 4:17 PM EST Narrative Resulting Agency Comment Spec In Lab Christopher Castañeda MD CHEMISTRY ORDERABLES Performing Organization Address [facility]/[place] [address] * TSH (07/29/2019 4:09 PM EST) Thyroid Stimulating Hormone 1.14 0.27 - 4.20 mcIU/mL [facility] Blood specimen (specimen) 07/29/2019 4:09 PM EST 07/29/2019 4:17 PM EST Narrative Resulting Agency Comment Spec In Lab Christopher Castañeda MD CHEMISTRY ORDERABLES Performing Organization Address City/[facility]/[place] [address] * (ABNORMAL) TSH (10/17/2018 4:22 PM EDT) Thyroid Stimulating Hormone 6.17(H) 0.27 - 4.20 mcIU/mL [facility] Blood specimen (specimen) 10/17/2018 4:22 PM EDT 10/17/2018 4:31 PM EDT Narrative Resulting Agency Comment Spec In Lab Christopher Castañeda MD CHEMISTRY ORDERABLES [facility] [place] [address] * T4, free (10/17/2018 4:22 PM EDT) Pathologist [facility] Free T4 0.96 0.93 - 1.70 ng/dL [facility] Blood specimen (specimen) 10/17/2018 4:22 PM EDT 10/17/2018 4:31 PM EDT Narrative Resulting Agency Comment Spec In Lab Christopher Castañeda MD CHEMISTRY ORDERABLES [facility] [place] [address] * (ABNORMAL) Hemogram (10/17/2018 4:22 PM EDT) [facility] White Blood Cell 8.2 4.0 - 9.5 x10(3)/mc L [facility] Red Blood Cell 4.68 4.00 - 5.21 x10(6)/mc L [facility] Hemoglobin 12.6 11.7 - 15.5 gm/dL [facility] Hematocrit 40.8 35.7 - 45.8 % [facility] Mean Cell Volume 87.2 82.6 - 94.4 [facility] Mean Cell Hemoglobin 26.9(L) 27.1 - 32.0 pg [facility] Mean Cell Hemoglobin Concentration 30.9(L) 31.7 - 35.0 gm/dL [facility] Platelet 274 145 - 357 x10(3)/mc L [facility] RDW Standard Deviation 51.3(H) 37.0 - 46.0 [facility] RDW coefficient of variation 16.1(H) 11.5 - 14.1 % [facility] Mean Platelet Volume 11.1 7.6 - 12.9 [facility] NRBC% auto 0.0 % [facility] NRBC Absolute 0.000 0.000 - 0.000 x10(3)/mc L [facility] Blood specimen (specimen) 10/17/2018 4:22 PM EDT 10/17/2018 4:31 PM EDT Narrative Resulting Agency Comment Spec In Lab Christopher Castañeda MD HEMATOLOGY ORDERABLE S Performing Organization Address [facility] Co de Phone Number [facility] [place] [address] * Vitamin D, 25-Hydroxy (10/17/2018 4:22 PM EDT) Vitamin D Total 25 OH 68 30 - 100 ng/mL [facility] Comment: Deficient <10 ng/mL Insufficient 10 to 29 ng/mL Sufficient 30 to 100 ng/mL Potential Intoxication >100 ng/mL According to the [place] National Osteoporosis Foundation, Vitamin D concentrations >30 ng/mL are sufficient to protect bone health. ??The National Kidney Foundation has similarly stated that patients with Vitamin D concentrations <30ng/mL should be considered to be insufficient or deficient. http://[employer]/nkf-guidelines http://[employer]/nejm-VitD The [employer] Vitamin D Immunoassay detects both 25-OH Vitamin D2 and 25-OH Vitamin D3, but only a total Vitamin D concentration is reported. Blood specimen (specimen) 10/17/2018 4:22 PM EDT 10/18/2018 7:52 AM EDT Narrative Resulting Agency Comment Spec In Lab Christopher Castañeda MD CHEMISTRY ORDERABLES Performing Organization Address [facility]/ZIP Co de Phone Number [facility] [place] [address] * (ABNORMAL) Iron and TIBC (10/17/2018 4:22 PM EDT) Iron 34 30 - 150 mcg/dL [facility] TIBC 487(H) 250 - 450 mcg/dL [facility] Iron Saturation 7(L) 20 - 50 % [facility] Blood specimen (specimen) 10/17/2018 4:22 PM EDT 10/17/2018 4:31 PM EDT Narrative Resulting Agency Comment Spec In Lab Christopher Castañeda MD CHEMISTRY ORDERABLES [facility] [place] [address] documented in this encounter Visit Diagnoses Diagnosis Graves disease Toxic diffuse goiter without mention of thyrotoxic crisis or storm Celiac disease documented in this encounter Care Teams Counterperson Relationship Specialty Start Date End Date Aisha Kessler MD [address] [place] [address] PCP - General Family Medicine 10/20/17 documented as of this encounter
--- OUTSIDE RECORDS SUMMARY | 2024-04-29 11:57 | XMS_ITS | Encounter Summary ---
Author Organization [facility] [place] [address] Care Team Providers Care Salesperson [employer] Name Role Phone Morgan Linares MD Primary Care Provider [phone] Reason for Visit * Reason Comments Follow-up Encounter Details Date Type Department Care Team (Late st Contact Info) Description 10/27/2014 11:15 AM EDT [place] [address] Chris Henson MD [facility] [place] [address] Celiac disease; Iron deficiency anemia Discharge Disposition: Home Social History Tobacco Use [...] Sign Reading Time Taken Comments Blood Pressure 124/75 10/27/2014 11:12 AM EDT Pulse 66 10/27/2014 11:12 AM EDT Temperature - - Respiratory Rate - - Oxygen Saturation - - Inhaled Oxygen Concentration - - Weight 69.4 kg (153 lb) 10/27/2014 11:12 AM EDT Height 175.3 cm (5' 9) 10/27/2014 11:12 AM EDT Body Mass Index 22.59 10/27/2014 11:12 AM EDT documented in this encounter Patient Instructions * Patient Instructions* Chris Henson MD - 10/27/2014 5:41 PM EDT Start gluten free diet Start Calcium and Vitamin D supplement daily Consider getting Pneumococcal vaccine (can pursue with PCP) Consider a Dexa Bone Scan in about 6-12 months to assess bone density Return to clinic 4 months for repeat labs documented in this encounter Progress Notes * Chris Henson MD - 10/27/2014 11:26 AM EDT Gastroenterology Outpatient Progress Note Patient ID: Татьяна Geller is a 44 y.o. female with history of celiac disease who returns to clinic for discussion of celiac diagnosis Patient Active Problem List Diagnosis Code ??? Anemia 285.9 ??? Celiac disease 579.0 Interim History: Ms. Geller continues to do well. She does have a history of anemia but well controlled on once daily iron and has some hair loss but not particularly bothersome. EGD showed duodenal villous blunting and mild inflammation with biopsies consistent with Celiac disease. (also diagnosed in her daughter). She has not started gluten free as she feels well. Review of Systems Constitutional: Negative for fever and unexpected weight change. HENT: Negative for mouth sores. Eyes: Negative for pain and redness. Respiratory: Negative for cough and shortness of breath. Cardiovascular: Negative for chest pain and palpitations. Gastrointestinal: Negative for nausea, vomiting, abdominal pain, diarrhea, constipation and abdominal distention. Genitourinary: Negative for dysuria. Musculoskeletal: Negative for joint swelling and arthralgias. Skin: Negative for rash. Current Outpatient Prescriptions Medication Sig Dispense Refill ??? ferrous sulfate 324 mg (65 mg iron) Tablet, Delayed Release (E.C.) Take 324 mg by mouth. ??? zolpidem (AMBIEN) 5 mg Tablet Take 5 mg by mouth nightly as needed for Sleep. No current facility-administered medications for this visit. Physical Examination: BP 124/75 Pulse 66 Ht 175.3 cm (5' 9) Wt 69.4 kg (153 lb) BMI 22.58 kg/m2 General: Pleasant, cooperative, NAD Deferred, discussed celiac diagnosis Labs: Reviewed in EDH. Pertinent labs included below Impression: Татьяна Geller is a 44 y.o. Female with a history of CLARKE now confirmed celiac disease. She is hesitant to start gluten free diet given otherwise asymptomatic and worried about quality of life with gluten free. We reviewed the pathophysiology of celiac disease and variable natural course. We discussed the importance of maintaining a gluten-free diet for reducing GI symptoms, preventing bone density loss (calcium and Vit D malabsorption), iron deficiency and other consequences of malabsorption/malnutrition. This may also help with other non-GI symptoms such as migraines, arthralgias and mood. We also discussed the increased risk of small bowel cancer (small bowel T-cell lymphoma), which is small in absolute terms but associated with poorly controlled celiac disease nonetheless. For measurement of bone density, I recommended a DEXA scan after 1 year of a gluten-free diet. We also discussed the pneumococcal vaccination (Pneumovax) which is recommended due to autohyposplenism associated with celiac disease. We will plan on trending theTTg IgA Ab until normalized as well as arepeat EGD about 1 year after diagnosis to confirm that duodenal inflammation has resolved on gluten free diet. If symptoms persist then will need further consultation with general intern as 6 months; if the markers are still elevated, I would consider referral back to a general intern as most common reason is inadvertent consumption of gluten. We discussed the National Celiac Foundation website as a guide and source of helpful information. Recommendations # Maintain a gluten-free diet. Refered to www.celiac.org. # For further questions regarding diet, consult with general intern # Repeat tissue transglutaminase antibody at next clinic visit # Start calcium, vitamin D supplements # DEXA bone scan in one year after maintaining a gluten free diet # Pneumococcal vaccination now and every 5 years - she will pursue with PCP # Follow-up with me in 4 months or sooner PRN # Consider a repeat EGD in 1 year I spent 20 min of this 25 min visit counseling the patient in the issues outlined above. Chris Henson MD [facility] Gastroenterology documented in this encounter Plan of Treatment Not on file documented as of this encounter Visit Diagnoses Diagnosis Celiac disease Iron deficiency anemia Iron deficiency anemia, unspecified documented in this encounter Care Teams Salesperson [employer] Relationship Specialty Start Date End Date Morgan Linares MD [address] [place] [address] PCP - General 09/24/14 10/19/17 documented as of this encounter
--- OUTSIDE RECORDS SUMMARY | 2024-04-29 11:57 | XMS_ITS | Encounter Summary ---
Author Organization [facility] [place] [address] Care Team Providers Care Controls Technician Name Role Phone Deep Constantino MD Primary Care Provider Reason for Visit * Reason Comments Anemia question sabine blue recently diagnosed Encounter Details Date Type Department Care Team (Late st Contact Info) Description 07/02/2014 10:00 AM EST Office [place] [address] [facility] [place] [address] Anemia, unspecified anemia type (Primary Dx); Hair loss Discharge Disposition: Home Social History Tobacco Use Types Packs/Day Years Used Date Smoking Tobacco: Never Sex and Gender Information Value Date Recorded Sex Assigned at Not on file Gender Identity Not on file Sexual Orientation Not on file documented as of this encounter Last Filed Vital Signs Vital Sign Reading Time Taken Comments Blood Pressure 120/78 07/02/2014 10:46 AM EST Pulse 72 07/02/2014 10:46 AM EST Temperature - - Respiratory Rate 14 07/02/2014 10:46 AM EST Oxygen Saturation - - Inhaled Oxygen Concentration - - Weight 67.1 kg (148 lb) 07/02/2014 10:46 AM EST Height - - Body Mass Index - - documented in this encounter Progress Notes * Chris Henson MD - 07/02/2014 10:55 AM EST [facility] Section of Gastroenterology and Hepatology Outpatient Consultation Reason for Visit: chronic anemia, daughter recently diagnosed with Celiac disease Referred by Self History of Present Illness: Татьяна Geller is a 43 y.o. female with chronic iron deficiency anemia, her daughter is recently diagnosed with celiac disease. She reports a long history of anemia requiring iron supplements. Anemia has been well controlled with iron supplement but no clear cause. Denies heavy menses. As result of her daughters diagnosis she is here for evaluation. She has some intermittent symptoms of diarrhea/loose stool but comes in episodes. Rarely has abdominal pain or discomfortbut not regularly. Weight has been stable. She does report long history of chronic hair loss. Denies rash or joint pain. Has never had a bone scan or upper endoscopy. Review of Systems: Constitutional: no weight loss HEENT: no visual changes, no URI symptoms Cardio: no chest pain Resp: no cough, no SOB Hem/Lymph: no new lumps or bumps on body GI: see HPI : no dysuria Integumentary: no new rashes Musculoskeletal: no new joint pains Neuro: no new numbness, weakness in extremities All other systems negative except as above in HPI Past Medical History Diagnosis Date ??? Anemia Past Surgical History Procedure Laterality Date ??? Tubal ligation ??? 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 Drinks alcohol socially and denies tobacco use. reports that she has never smoked. She does not have any smokeless tobacco history on file. Family History: family history includes Celiac Disease in her daughter. Current Outpatient Prescriptions Medication Sig Dispense Refill ??? ferrous sulfate 324 mg (65 mg iron) Tablet, Delayed Release (E.C.) Take 324 mg by mouth. ??? zolpidem (AMBIEN) 5 mg Tablet Take 5 mg by mouth nightly as needed for Sleep. No current facility-administered medications for this visit. No Known Allergies Physical Examination: BP 120/78 Pulse 72 Resp 14 Wt 67.132 kg (148 lb) General:Pleasant, cooperative, NAD, WN/WD HEENT: NC/AT, PERRL, anicteric sclera, MMM, no erythema or exudate Neck: soft, supple, no cervical LAD Chest: CTA bilaterally, no wheeze, rale or rhonchi CVS: Regular rate and rhythm, normal s1/s2, no murmur, rub or gallop ABD: soft, non-tender, non-distended, normal active bowel sounds. No hepatosplenomegaly appreciated Extremities: Warm and well perfused. No clubbing, cynanosis or edema Skin:No rash or lesion Neuro: AAOx3, Grossly non-focal. Labs: Reviewed in EDH/Scan Docs Additional Testing: Reviewed available labs, imaging and endoscopy results in EDH/CIS as well as Scan Docs tab. IMPRESSION: Татьяна Geller is a 43 y.o. female with history of anemia and chronic hair loss. Daughterrecently diagnosed with celiac disease. Will proceed with anemia workup and celiac serology. Given high degree of suspicion will pursue EGD even if serologies negative. RECOMMENDATIONS: # Celiac Serologies today # Anemia workup including B12/Folate/Iron studies # EGD to be scheduled Chris Henson MD Section of Gastroenterology [place] [id number] P: [phone] F: [phone] CC DEEP CONSTANTINO MD [address] [place] [id number] documented in this encounter Plan of Treatment Scheduled Orders Name Type Priority Associated Diagnoses Orde r Schedule UPPER GI ENDOSCOPY Procedures Routine Anemia, unspecified anemia type Hair loss Ordered: 07/02/2014 documented as of this encounter Procedures Procedure Name Priority Date/Time Associated Diagnosis Comments HEMOGRAM Routine 07/02/2014 12:10 PM EST Anemia, unspecified anemia type Hair loss DIFFERENTIAL, AUTOMATED Routine 07/02/2014 12:10 PM EST Anemia, unspecified anemia type Hair loss IRON AND TIBC Routine 07/02/2014 12:10 PM EST Anemia, unspecified anemia type Hair loss TISSUE TRANSGLUTAMINASE, IGA Routine 07/02/2014 12:10 PM EST Anemia, unspecified anemia type Hair loss CBC (WITH DIFF) Routine 07/02/2014 12:10 PM EST Anemia, unspecified anemia type Hair loss IGA Routine 07/02/2014 12:10 PM EST Anemia, unspecified anemia type Hair loss FOLATE, SERUM Routine 07/02/2014 12:10 PM EST Anemia, unspecified anemia type Hair loss FERRITIN Routine 07/02/2014 12:10 PM EST Anemia, unspecified anemia type Hair loss VITAMIN B12 Routine 07/02/2014 12:10 PM EST Anemia, unspecified anemia type Hair loss documented in this encounter Results * Differential, Automated (07/02/2014 12:10 PM EST) Neutrophil % 61.2 % CERNER MILLENNIUM Neutrophil Absolute 4.17 1.50 - 6.30 x10(3)/mcL CERNER MILLENNIUM Lymph % 26.2 % CERNER MILLENNIUM Lymphocytes Abs 1.8 1.0 - 3.6 x10(3)/mcL CERNER MILLENNIUM Monocyte % 8.7 % CERNER MILLENNIUM Monocyte Abs 0.6 0.2 - 1.0 x10(3)/mcL CERNER MILLENNIUM Eos % 2.5 % CERNER MILLENNIUM Eosinophils Abs 0.2 0.0 - 0.5 x10(3)/mcL CERNER MILLENNIUM Basophil % 1.3 % CERNER MILLENNIUM Baso Absolute 0.1 0.0 - 0.2 x10(3)/mcL CERNER MILLENNIUM Immature Gran % 0.10 % CERN ER MILLENNIUM Comment: Immature granulocytes(IG's)percentage and absolute count will include metamyelocytes, myelocytes, and promyelocytes. Blood smears from CBCs yielding IG's will be scanned manually for concordance. If this scan disagrees with the automated IG or if promyelocytes are noted, a manual differential will be performed. Immature Gran Absolute 0.01 0.00 - 0.05 x10(3)/mcL CERNER MILLENNIUM Blood specimen (specimen) 07/02/2014 12:10 PM EST 07/02/2014 12:14 PM EST Narrative Resulting Agency Comment Spec In Lab Chris Henson MD HEMATOLOGY ORDERA BLES Performing Organization Address [facility]/ZIP Co de Phone Number CERNER MILLENNIUM * Hemogram (07/02/2014 12:10 PM EST) White Blood Cell 6.8 4.0 - 10.0 x10(3)/mcL CERNER MILLENNIUM Red Blood Cell 4.56 3.93 - 5.22 x10(6)/mcL CERNER MILLENNIUM Hemoglobin 14.1 11.2 - 15.7 gm/dL CERNER MILLENNIUM Hematocrit 41.7 34.0 - 45.0 % CERNER MILLENNIUM Mean Cell Volume 91.4 79.0 - 94.0 fL CERNER MILLENNIUM Mean Cell Hemoglobin 30.9 26.6 - 32.2 pg CERNER MILLENNIUM Mean Cell Hemoglobin Concentration 33.8 32.0 - 36.5 gm/dL CERNER MILLENNIUM Platelet 274 145 - 370 x10(3)/mcL CERNER MILLENNIUM RDW Standard Deviation 44.2 35.0 - 46.0 fL CERNER MILLENNIUM RDW coefficient of variation 13.3 10.9 - 14.4 % CERNER MILLENNIUM Mean Platelet Volume 11.1 9.0 - 12.0 fL CERNER MILLENNIUM Blood specimen (specimen) 07/02/2014 12:10 PM EST 07/02/2014 12:14 PM EST Narrative Resulting Agency Comment Spec In Lab Chris Henson MD HEMATOLOGY ORDERA BLES Performing Organization Address [facility] Co de Phone Number CERNER MILLENNIUM * Folate, serum (07/02/2014 12:10 PM EST) Folate 14.1 4.6 - 34.8 ng/mL CERNER MILLENNIUM Blood specimen (specimen) 07/02/2014 12:10 PM EST 07/02/2014 12:14 PM EST Narrative Resulting Agency Comment Spec In Lab Chris Henson MD CHEMISTRY ORDERAB LES Performing Organization Address [facility] Co de Phone Number CERNER MILLENNIUM * Vitamin B12 (07/02/2014 12:10 PM EST) Vitamin B12 893 207 - 974 pg/mL CERNER MILLENNIUM Blood specimen (specimen) 07/02/2014 12:10 PM EST 07/02/2014 12:14 PM EST Narrative Resulting Agency Comment Spec In Lab Chris Henson MD CHEMISTRY ORDERAB LES [facility] MILLENNIUM * (ABNORMAL) Iron and TIBC (07/02/2014 12:10 PM EST) Iron 63 30 - 150 mcg/dL CERNER MILLENNIUM TIBC 370 250 - 450 mcg/dL CERNER MILLENNIUM Iron Saturation 17(L) 20 - 50 % CERN ER MILLENNIUM Blood specimen (specimen) 07/02/2014 12:10 PM EST 07/02/2014 12:14 PM EST Narrative Resulting Agency Comment Spec In Lab Chris Henson MD CHEMISTRY ORDERAB LES Performing Organization Address [facility] Co de Phone Number [facility] MILLENNIUM * (ABNORMAL) Ferritin (07/02/2014 12:10 PM EST) Ferritin 8(L) 15 - 150 ng/mL CERNER MILLENNIUM Comment: Pediatric reference ranges not verified at [facility], interpret with caution. Reference ranges for females greater than 50 years of age approach values for men, i.e., 30-400 ng/mL. Blood specimen (specimen) 07/02/2014 12:10 PM EST 07/02/2014 12:14 PM EST Narrative Resulting Agency Comment Spec In Lab Chris Henson MD CHEMISTRY ORDERAB LES [facility] MILLENNIUM * IgA (07/02/2014 12:10 PM EST) IgA 156 70 - 400 mg/dL [facility] MILLENNIUM Blood specimen (specimen) 07/02/2014 12:10 PM EST 07/02/2014 12:14 PM EST Narrative Resulting Agency Comment Spec In Lab Chris Henson MD CHEMISTRY ORDERAB LES Performing Organization Address [facility] Co de Phone Number [facility] * (ABNORMAL) Tissue transglutaminase, IgA (07/02/2014 12:10 PM EST) TTG IgA Ab 15.5(H) <=3.9 u/ml [facility] Comment: Result Interpretation: Negative: ?<4 U/mL Weak Positive: ??4-10 U/mL Positive: ?>10 U/mL Blood specimen (specimen) 07/02/2014 12:10 PM EST 07/02/2014 2:10 PM EST Narrative Resulting Agency Comment Spec In Lab Chris Henson MD IMMUNOLOGY ORDERA BLES Performing Organization Address [facility] de Phone Number [facility] documented in this encounter Visit Diagnoses Diagnosis Anemia, unspecified anemia type- Primary Hair loss Alopecia, unspecified documented in this encounter Care Teams Controls Technician Relationship Specialty Start Date End Date Deep Constantino MD [address] [place] [address] [place] [address] PCP - General 05/18/10 09/23/14 documented as of this encounter
--- OUTSIDE RECORDS SUMMARY | 2024-04-29 11:57 | XMS_ITS | Encounter Summary ---
Author Organization [facility] [place] [address] Care Team Providers Care Media Sales Representative Name Role Phone Aisha Kessler MD Primary Care Provider [phone] Encounter Details Date Type Department Care Team (Late st Contact Info) Description 07/29/2019 3:30 PM EST Office [place] [address] Christopher Castañeda MD [facility] [place] [address] Anxiety; Graves disease Social History Tobacco Use Types [...] Sign Reading Time Taken Comments Blood Pressure 133/81 07/29/2019 3:16 PM EST L a rm Pulse 65 07/29/2019 3:16 PM EST Temperature - - Respiratory Rate - - Oxygen Saturation 99% 07/29/2019 3:16 PM EST Inhaled Oxygen Concentration - - Weight 73.9 kg (163 lb) 07/29/2019 3:16 PM EST Height 172.7 cm (5' 8) 07/29/2019 3:16 PM EST Body Mass Index 24.78 07/29/2019 3:16 PM EST documented in this encounter Progress Notes * Comi, Christopher J, MD - 07/29/2019 3:30 PM EST We are seeing this 48 year old woman for Graves disease From September 2018 1) Graves disease - overtreated - braulio [...] advised her to see neurologistif they persist. Health is OK Headaches are gone for the most part Energy is ok No palpitations Struggles w anxiety- can feel overwhelmed Can be quite prolonged Since June - has to use ambien for sleep Weight is stable Taking 5 mg a day of methimazole Medications 07/29/19 1518 Medication Sig Taking? methIMAzole (TAPAZOLE) 10 mg Tablet Take 1.5 tablets by mouth daily. Or alternate 10 mg a day with 20 mg a day Yes HYDROCODONE/ACETAMINOPHEN (VICODIN ORAL) Take by mouth as needed. Reported on 06/07/2016 Yes ferrous sulfate 324 mg (65 mg iron) Tablet, Delayed Release (E.C.) Take 324 mg by mouth daily. Yes zolpidem (AMBIEN) 5 mg Tablet Take 5 mg by mouth nightly as needed for Sleep. Yes diclofenac (CATAFLAM) 50 mg Tablet BP 133/81 Comment: L arm Pulse 65 Ht 172.7 cm (5' 8) Wt 73.9 kg (163 lb) SpO2 99% BMI 24.78 kg/m?? Pleasant calm healthy appearing woman Eyes: No proptosis On a base of 100, 12 mm each thyroid: Normal size and texture neck: Neuro: No tremor Recent Results (from the past 24 hour(s)) T4, free Result Value Ref Range Free T4 1.29 0.93 - 1.70 ng/dL TSH Result Value Ref Range TSH 1.14 0.27 - 4.20 mcIU/mL Ref. Range 04/25/2018 09:20 10/17/2018 16:22 Free T4 Latest Ref Range: 0.93 - 1.70 ng/dL 0.91 (L) 0.96 TSH Latest Ref Range: 0.27 - 4.20 mcIU/mL 6.63 (H) 6.17 (H) 1) Graves disease - this is under very good control on low dose methimazole but I do not see an opportunity to lower her dose 2) chronic iron deficiency - Continues on iron 3) anxiety - we had a long discussion of this. She does not want an antidepressant like an SSRI even though I told her these were the most effective for anxiety. She is willing to try welbutrin 150 daily SR for a few weeks and will call back to let us know its effectiveness for her 30 min, 20 min discussion of meds for anxiety Ocular migraines ?elevil - write documented in this encounter Plan of Treatment Not on file documented as of this encounter Procedures Procedure Name Priority Date/Time Associated Diagnosis Comments HC THYROID STIMULATING HORMONE, SERUM STAT 07/29/2019 4:09 PM EST Graves disease HC FREE THYROXINE (T4) STAT 07/29/2019 4:09 PM EST Graves disease documented in this encounter Results * TSH (07/29/2019 4:09 PM EST) Thyroid Stimulating Hormone 1.14 0.27 - 4.20 mcIU/mL [facility] Blood specimen (specimen) 07/29/2019 4:09 PM EST 07/29/2019 4:17 PM EST Narrative Resulting Agency Comment Spec In Lab Christopher Castañeda MD CHEMISTRY ORDERABLES [facility] [place] [address] * T4, free (07/29/2019 4:09 PM EST) Free T4 1.29 0.93 - 1.70 ng/dL [facility] Blood specimen (specimen) 07/29/2019 4:09 PM EST 07/29/2019 4:17 PM EST Narrative Resulting Agency Comment Spec In Lab Christopher Castañeda MD CHEMISTRY ORDERABLES [facility] [place] [address] documented in this encounter Visit Diagnoses Diagnosis Anxiety Anxiety state, unspecified Graves disease Toxic diffuse goiter without mention of thyrotoxic crisis or storm documented in this encounter Care Teams Media Sales Representative Relationship Specialty Start Date End Date Aisha Kessler MD [address] [place] [address] PCP - General Family Medicine 10/20/17 documented as of this encounter
--- OUTSIDE RECORDS SUMMARY | 2024-04-29 11:57 | XMS_ITS | Encounter Summary ---
[place] [address] Care Team Providers Care Control Chemist Name Role Phone Aisha Kessler MD Primary Care Provider [phone] Encounter Details Date Type Department Care Team (Late st Contact Info) Description 05/08/2018 Telephone [place] [id number] Citlaly Jones LPN Social History Tobacco Use [...] Miscellaneous Notes * Telephone Encounter - Citlaly oJnes LPN - 05/16/2018 8:34 AM EST Images from the original note were not included. I called patient at home, and read her Dr. Castañeda's message below. She stated her headaches are much better, and she's been taking Propranolol 20 mg (instead of 40 mg) daily as she believes that was the pill mentioned decreasing, and possibly coming off of in visit. She's continued with Methimazole, but has not started PTU yet. Татьяна Geller?? Sex: Female, 47 y.o., 1970 Weight: 70.4 kg (155 lb 4.8 oz) (M) PCP: Aisha Kessler MD My Pat List Reminders: None myD-H: Pending Next Appt: 10/17/2018 Message Received: Today Message Contents Christopher Castañeda MD Danforth, Laura J, LPN Caller: Unspecified (1 week ago) ?? She is on propranolol but I think it is for migraines. ??I would not stop this * Telephone Encounter - Citlaly Jones LPN - 05/08/2018 3:19 PM EST Patient called, and left message, stating she'd seen Dr. Castañeda on 04/25/18. She stated she received a letter in the mail, but there was no mention of a BP med that she and Dr. Castañeda discussed possibly coming off of? She is wondering if that still holds true. Note forwarded to Dr. Castañeda documented in this encounter Plan of Treatment Not on file documented as of this encounter Visit Diagnoses Not on filedocumented in this encounter Care Teams Control Chemist Relationship Specialty Start Date End Date Aisha Kessler MD [address] [place] [address] PCP - General Family Medicine 10/20/17 documented as of this encounter
--- OUTSIDE RECORDS SUMMARY | 2024-04-29 11:57 | XMS_ITS | Encounter Summary ---
Author Organization [facility] [place] [address] Care Team Providers Care Conveyor Attendant Name Role Phone Morgan Linares MD Primary Care Provider [phone] Encounter Details Date Type Department Care Team (Late st Contact Info) Description 09/25/2014 8:12 AM EDT - 09/25/2014 10:00 AM EDT Hospital En[place] [address] Sandrine Henson MD [facility] [place] [address] Discharge Disposition: Home Social History Tobacco Use [...] not get better as expected. Monday-Monday Clinic [phone] 8a-5p Same Day Endo [phone] 7a-8p Otherwise contact [phone] and ask to speak to the medicare coordinator loss prevention officer Follow-up care is a juárez part of [...] EDT Endoscopy Pre-Procedure Patient Call Name: Abner Varma Age: 43 y.o. Date of : 1970 (home) Mobile: No relevant phone numbers on file. Date/Time of call: September 24, 2014/2:35 PM/ Procedure: EGD Call attempted - unable to contact patient Message left on answering machine: yes * Pa Rodriguez RN - 09/22/2014 9:32 AM EDT ENDOSCOPY PATIENT HISTORY Name: ABNER VARMA : 1970 Age: 43 y.o. [address]: [address] [place] [phone] (home) [phone] (work) Mobile: No relevant phone numbers on [...] documented in this encounter H&P Notes * Sandrien Henson MD - 09/25/2014 9:00 AM EDT Patient Name: Abner Varma Patient Age: 43 y.o. Birthdate: 1970 Admit [...] (09/25/2014 9:43 AM EDT) Final Diagnosis ? [facility] ? Provider: ?? SANDRINE HENSON ??Pt. Name: ?? ABNER VARMA ?Y ? Acc #: ?[id number] ?Pt. ? Col Date: ?? 09/25/2014 ?/Sex: ?1970,(43 years),Female ? Rec Date: ?? 09/25/2014 ?LOC: ?4T ? SURGICAL PATHOLOGY ? ---Pathologic Diagnosis--- ? Duodenum, biopsy: ?Small intestinal mucosa with total villous blunting, compatible with ? celiac disease. ? CR-0 ? 09/26/14 ? BJM ? 09/26/14 Verified by: ? LisovskAnoop milligan MD ? Pathologist ? (Electronic Signature) ? [...] positive celiac serologies 09/26/2014 5:01 PM EDT [facility] GI Biopsy 09/25/2014 9:43 AM EDT 09/25/2014 9:43 AM EDT Sandrine Henson MD PATHOLOGY/CYTOLOG Y ORDERABLES Performing Organization Address [facility]/State/[facility] Co de Phone Number [place] [address] * Specimen to Pathology (surgical or derm) (09/25/2014 9:43 AM EDT) AP Specimen 09/25/2014 9:43 AM EDT 09/25/2014 9:43 AM EDT Narrative [facility] - 09/25/2014 9:43 AM EDT Specimen requisition ordered. ??Separate Pathology report to follow Sandrine Henson MD PATHOLOGY/CYTOLOG Y ORDERABLES [facility] * UPPER GI ENDOSCOPY (09/25/2014 9:08 AM EDT) Pathologist [facility] UPPER GI ENDOSCOPY [facility] Endoscopy Patient Name: Abner Varma ? Procedure Date: 09/25/2014 9:08 AM ? Date of : 1970 ? Age: 43 ? Order #: [id number] ? Procedure: ? Upper GI endoscopy Indications: ? Iron deficiency anemia, Positive ? celiac serologies Providers: ? Rubens Yang, ONUR, ? Fiorella Rondon Referring : ?Deep Zuleta MD Medicines: ? Midazolam 5 [...] the physician, the nurse and the ? structural engineering technician in the pre-procedure area ? in [...] PROVATION documented in this encounter Visit Diagnoses Not on filedocumented in this encounter Administered Medications Inactive Administered Medications - up to 3 most recent administrations Medication Order MAR Action Action Date Dose Rate Site lactated ringers infusion 100 mL/hr, Intravenous, CONTINUOUS, Starting on Luci 09/25/14 at 0900, Until Luci 15 at 1754, Endoscopy (Day of Procedure) New Bag 09/25/2014 9:00 AM EDT 100 mL/hr 100 mL/hr documented in this encounter Active and Recently Administered Medications Times are shown in EDT. Continuous Medication Order 09/23/2014 09/24/2014 09/25/2014 lactated ringers infusion (CANCELED) 100 mL/hr, Intravenous, CONTINUOUS, Starting on Luci 415 at 0900, Until Luci 4/15 at 1754, Endoscopy (Day of Procedure) 0900 (New Bag - Prov ider: Fely Aguilera RN) PRN Medication Order 09/23/2014 09/24/2014 09/25/2014 fentaNYL 50 mcg/mL multi-dose injection (CANCELED) ONCE PRN, Starting on Luci 415 at 0922, Until Luci 415 at 1754, Intra-Operative (Intra-Procedure), Routine 921 (Given - Provid er: Rubens Moon, RN)925 (Given - Provider: Rubens Moon, RN)929 (Given - Provider: Rubens Moon, RN) midazolam (PF) (VERSED) 1 mg/mL multi-dose injection (CANCELED) ONCE PRN, Starting on Luci 09/25/14 at 0922, Until Luci 09/25/14 at 1754, Intra-Operative (Intra-Procedure), Routine 0922 (Given - Provid er: Rubens Moon RN)09 (Given - Provider: Rubens Moon RN)09 (Given - Provider: Rubens Moon RN)0934 (Given - Provider: Rubens Moon RN) documented in this encounter Care Teams Conveyor Attendant Relationship Specialty Start Date End Date Morgan Linares MD [address] [place] [address] PCP - General 09/24/14 10/19/17 documented as of this encounter
[2024-04-29 15:55] LABS: Iron 128 ug/dL (50-170); Total Iron Binding Capacity 304 ug/dL (250-450); Transferrin Sat 42 % (15-50)
[2024-04-29 16:22] LABS: Ferritin 15 ng/mL (8-252)
== END 2024-04-29 11:55 | disposition home or self-care (01) ==
LOC: NCHCN 11:54
PROVIDERS: PCP Family Medicine; Visit Provider Family Medicine
DX: E61.1 Iron deficiency (principal)
CPT/HCPCS: 82728; 83540; 83550

== ENCOUNTER 2024-08-26 13:11 | Outpatient (REF) | payer BC, SELFPAY ==
[2024-08-26 17:25] LABS: COMMENT (LAB VIEW ONLY) 190.83 mg/dL; Microalb ug/mg Crea 8.7 ug/mg Cr
== END 2024-08-26 13:12 | disposition home or self-care (01) ==
LOC: NCHCN 13:11
PROVIDERS: PCP Family Medicine; Visit Provider Family Medicine
DX: I10 Essential (primary) hypertension (principal)
CPT/HCPCS: 82043; 82570

== ENCOUNTER 2024-10-23 11:16 | Outpatient (CLI) | payer BC, SELFPAY ==
--- NOTE | 2024-10-23 11:00 | DI.RAD_ITS ---
Exam(s) XR SHOULDER RT COMPLETE 2+V EXAM: XR SHOULDER RT COMPLETE 2+V CLINICAL HISTORY: RIGHT SHOULDER PAIN. TECHNIQUE: 2D digital imaging was performed. Two views. COMPARISON: No exams were available for comparison FINDINGS: BONES: No acute fracture is present. No bony destructive lesion is seen. There is mild spurring at t he tip of the acromion. JOINTS: No dislocation present. There is no significant spurring at the AC joint. The glenohumeral joint space is maintained. No significant degenerative changes. SOFT TISSUE: Normal. IMPRESSION: Spurring at the tip of the acromion. DATA REPOSITORY: RADIATION DOSE DELIVERED:
== END 2024-10-23 11:17 | disposition home or self-care (01) ==
LOC: DIORS 11:16
PROVIDERS: PCP Family Medicine; Visit Provider Student in an Organized Health Care Education/Training Program
DX: M25.511 Pain in right shoulder (principal); M75.51 Bursitis of right shoulder; M75.81 Other shoulder lesions, right shoulder
CPT/HCPCS: 73030

== ENCOUNTER 2025-01-08 01:45 | Outpatient (CLI) | payer BC, SELFPAY ==
--- NOTE | 2025-01-08 08:00 | DI.MRI_ITS ---
Exam(s) MR UPPER JOINT RT WO EXAM: MR UPPER JOINT RT WO CLINICAL HISTORY: R SHOULDER PAIN,bursitis rt shoulder,rt rotator cuff tendinitis,m75.81, TECHNIQUE: Multiplanar multisequence MRI of the shoulder was performed. COMPARISON: MR MR UPPER JOINT LT WO from 07/11/2022 CR XR SHOULDER RT COMPLETE 2+V from 10/23/2024 FINDINGS: MARROW:There is no evidence of fracture, Hill-Sachs deformity, nor ominous osseous lesions. GLENOHUMERAL JOINT: No joint effusion nor obvious loose intra-articular bodies. No chondral defects. No osteophytes. No degenerative subarticular cysts. ROTATOR CUFF MECHANISM: AC JOINT/ACROMIUM: There are minimal degenerative changes in the acromioclavicular joint. There is mild spurring on the undersurface of the acromion. There is no evidence of os acromiale. Supraspinatus: There is a full-thickness tear here anterior aspect of the supraspinatus-rotator cuff tendon, this located 1 cm above the greater tuberosity. In the conjoined region. There is a small amount of fluid in the subacromial bursa space. Infraspinatus: Intact. No evidence of tear nor muscle atrophy. Teres Minor: Intact. No evidence of tear nor muscle atrophy. Subscapularis/anterior cuff: Intact. No abnormal signal at the level of the multipennate insertional fibers. No significant tear nor atrophy. BICEPS TENDON: Exhibits normal position in the intracondylar groove but does exhibit some split tearing in the upper intercondylar groove. This extends into the intra-articular aspect of the tendon. There is no detachment from the anterosuperior labrum. No obvious tenosynovitis. LABRUM: There is no significant signal abnormality in the superior labrum posterior to the biceps insertion site. The posterior labrum also appears intact. There is mild irregularity of the anterior superior labrum. Anterior inferior labrum appears unremarkable and there is no evidence of bony Bankart lesion. LABROLIGAMENTOUS/CAPSULAR COMPLEX: There is no evidence of avulsion of the anterior-inferior labrum, capsule, inferior glenohumeral ligament complex nor disruption of the scapular periosteum to suggest the presence of a Bankart lesion. QUADRILATERAL SPACE: No evidence of mass in the region of the axillary nerve and dorsal circumflex humeral vessels. Visualized triceps muscle at this level appears unremarkable. IMPRESSION: 1. There is full-thickness tear of the rotator cuff supraspinatus tendon located approximately 1 cm above the greater tuberosity. There is no significant retraction of the musculotendinous junction. No muscle atrophy. 2. There appears to be split tearing of the biceps tendon within the superior aspect of the intertubercular groove. No full-thickness tear of the biceps tendon and there is no detachment of the biceps tendon from the anterosuperior aspect of the glenoid labrum. 3. And slight irregularity is noted in the anterior aspect of the labrum which may be a small tear. There is no evidence of avulsion of the anterior inferior labrum and capsule to suggest the presence of a Bankart-type lesion. DATA REPOSITORY:
== END 2025-01-08 02:05 ==
LOC: DI 01:46
PROVIDERS: PCP Family Medicine; Visit Provider Student in an Organized Health Care Education/Training Program
DX: M75.81 Other shoulder lesions, right shoulder
CPT/HCPCS: 73221

== ENCOUNTER 2025-02-21 01:04 | Outpatient (CLI) | payer BC, SELFPAY ==
[2025-02-21 07:40] LABS: Abs Immature Grans 0.00 10^3/uL (0.0-0.06); HCT 46.7 % (36.0-46.0); HGB 15.6 g/dL (11.2-15.7); Immature Grans % 0.0 %; MCH 31.8 pg (27.0-33.0); MCHC 33.4 % (32.0-36.0); MCV 95 fL (80-95); MPV 10.7 fL (8.0-11.0); Platelet Count 207 10^3/uL (130-400); RBC 4.91 10^6/uL (3.93-5.22); RDW 12.1 % (11.7-14.6); RDW-SD 42.5 fL; WBC 4.89 10^3/uL (4.4-10.8)
[2025-02-21 07:40] LABS: Glucose Negative (Negative)
[2025-02-21 07:47] LABS: RBC 0-2 HPF (0-2); WBC Negative HPF (0-5)
[2025-02-21 07:48] LABS: C & S Indicated? No
[2025-02-21 08:19] LABS: Iron 82 ug/dL (50-170); Total Iron Binding Capacity 288 ug/dL (250-450); Transferrin Sat 28 % (15-50)
[2025-02-21 08:34] LABS: ALT 23 U/L (14-59); AST 15 U/L (15-37); Albumin 4.2 g/dL (3.4-5.0); Alkaline Phosphatase 69 U/L (46-116); Anion Gap 5.8 mmol/L (3-11); BUN 14 mg/dL (7-18); Bilirubin, Total 0.5 mg/dL (0.2-1.0); CO2 32.2 mmol/L (21.0-32.0); Calcium 8.9 mg/dL (8.5-10.1); Calculated LDL 133 mg/dL (<100); Chloride 105 mmol/L (98-107); Cholesterol 202 mg/dL (<200); Estimated GFR 59.71 (mL/min/1.73m2); Ferritin 38 ng/mL (8-252); Glucose 91 mg/dL (74-106); HDL Cholesterol 60 mg/dL (>or=50); Potassium 4.1 mmol/L (3.5-5.1); Sodium 143 mmol/L (136-145); TSH 1.97 uIU/mL (0.36-3.74); Total Protein 7.6 g/dL (6.4-8.2); Triglyceride 45 mg/dL (<150); Vitamin D 25 Total 72 ng/mL (30-100)
[2025-02-21 19:01] LABS: T3,Free 4.0 pg/mL (2.8-5.3)
== END 2025-02-21 01:05 | disposition home or self-care (01) ==
LOC: LBO 01:04
PROVIDERS: PCP Family Medicine; Visit Provider Naturopath
DX: L65.9 Nonscarring hair loss, unspecified (principal); D50.9 Iron deficiency anemia, unspecified; I10 Essential (primary) hypertension; F51.01 Primary insomnia; R35.0 Frequency of micturition; F41.1 Generalized anxiety disorder; R42 Dizziness and giddiness; R53.83 Other fatigue; Z13.220 Encounter for screening for lipoid disorders; E07.9 Disorder of thyroid, unspecified; E55.9 Vitamin D deficiency, unspecified; N95.8 Other specified menopausal and perimenopausal disorders; K90.0 Celiac disease
CPT/HCPCS: 36415; 80053; 80061; 82306; 81003; 81015; 82728; 83540; 83550; 84140; 84439; 84443; 84481; 85025; 86038

== ENCOUNTER → 2025-04-28 02:02 | Outpatient (CLI) | payer BC, SELFPAY ==
--- NOTE | 2025-04-28 07:48 | DI.MAMMO_ITS ---
Exam(s) MAMMO SCREENING EXAM: MAMMO SCREENING CLINICAL HISTORY: SCREENING, Z12.31 TECHNIQUE: Bilateral full field digital CC and MLO mammographic images were obtained with 3D tomosynthesis and utilizing computer aided detection (CAD). COMPARISON: Comparison is made with prior examinations. FINDINGS: Masses/Architectural Distortion: No suspicious masses or areas of architectural distortion are present. The biopsy clip in the left breast is stable. Microcalcifications: No suspicious pleomorphic-type are seen. Skin Thickening/Nipple Retraction: None. IMPRESSION: 1. No significant interval change with no specific features of malignancy noted. 2. Unless there is more urgent need, screening mammography is recommended, as per [employer] guidelines. BI-RADS Category 1 - Negative Breast Density - Category C - The breast are heterogeneously dense, which may obscure small masses. Breast density Category C or D implies that the patient has dense breast tissue. Dense breast tissue can make it harder to find cancer on a mammogram. Dense breast tissue is also associated with an increased risk of breast cancer. This information about the result of the mammogram report was provided to the patient to raise their awareness. Use this report when you speak with the patient about their risks for breast cancer, which includes their family history. At that time, you may recommend additional screening tests (Ultrasound or MRI) as these tests may add significant information. A negative radiographic report should not delay biopsy if a dominant or clinically suspicious mass is present. Up to ten percent of cancers are not identified on mammography. A negative report may reinforce clinical impression. Adenosis and dense breasts may obscure an underlying neoplasm. False positive reports average 6 to 10%. Patient will receive a letter notifying them of these results.
== END ==
LOC: DI 02:02
PROVIDERS: PCP Family Medicine; Visit Provider Obstetrics & Gynecology
DX: Z12.31 Encounter for screening mammogram for malignant neoplasm of breast (principal)
CPT/HCPCS: 77063; 77067